=== PATIENT | female | born 1970 | race Caucasian/White ===

== ENCOUNTER 2019-06-27 23:55 | Inpatient (IN) | payer SELFPAY ==
[~2019-06-27] VITALS: Ht 160 cm; Wt 58.1 kg
--- NOTE | 2019-06-28 01:02 | PHYS DOC ---
Past Medical History Past Medical History: Alcoholism, Diabetes-Type I, Hypertension, Hepatitis, Other Additional Past Medical Histor: NEUROPATHY, Past Surgical History: No Surgical History Smoking: Cigarettes Alcohol Use: Heavy Drug Use: Methamphetamine Adult General Chief Complaint Chief Complaint: SHOUDLER HPI HPI Patient is a 48 year old right-handed female with history of alcohol use who presents with a feeling of left shoulder pain. Patient complaining of gradual o nset of left shoulder and left side of neck pain for the last 10 days that gradually getting worse since yesterday was worse and was not able to move his arm. Patient denies fever and chills, injury, history of the same problem, focal neuro deficit, nausea and vomiting. Patient rated her pain 10 over 10. Patient states she had 1 pint of vodka today. Review of Systems Review of Systems Constitutional: Denies fever or chills [] Eyes: Denies change in visual acuity, redness, or eye pain [] HENT: Denies nasal congestion or sore throat [] Respiratory: Denies cough or shortness of breath [] Cardiovascular: No additional information not addressed in HPI [] GI: Denies abdominal pain, nausea, vomiting, bloody stools or diarrhea [] : Denies dysuria or hematuria [] Musculoskeletal: Denies back pain, reports joint pain [] Integument: Denies rash or skin lesions [] Neurologic: Denies headache, focal weakness or sensory changes [] Endocrine: Denies polyuria or polydipsia [] All other systems were reviewed and found to be within normal limits, except as documented in this note. Current Medications Current Medications Current Medications Medications (Trade) Dose Ordered Sig/[facility] Start Time Stop Time Status Last Admin Dose Admin Cefazolin Sodium/ Dextrose 50 ml @ 100 mls/hr 1X ONCE 06/28/19 02:30 06/28/19 02:59 DC 06/28/19 02:53 100 MLS/HR Fentanyl Citrate (Fentanyl 2ml Vial) 50 mcg 1X ONCE 06/28/19 02:30 06/28/19 02:31 DC 06/28/19 02:39 50 MCG Sodium Chloride 1,000 ml @ 1,000 mls/hr 1X ONCE 06/28/19 02:30 06/28/19 03:29 DC 06/28/19 05:44 1,000 MLS/HR Vancomycin HCl 250 ml @ 250 mls/hr 1X ONCE 06/28/19 02:30 06/28/19 03:29 DC 06/28/19 02:54 250 MLS/HR Allergies Allergies Allergies Coded Allergies Type Severity Reaction Last Updated Verified No Known Drug Allergies 10/09/13 No Physical Exam Physical Exam Constitutional: Well nourished, mild distress, non-toxic appearance, smell of alcohol on breath. [] HENT: Normocephalic, atraumatic. Eyes: PERRLA, EOMI, conjunctiva normal, no discharge. [] Neck: Normal range of motion, no tenderness, supple, no stridor. [] Cardiovascular:Heart rate regular rhythm, no murmur [] Lungs & Thorax: Bilateral breath sounds clear to auscultation [] Skin: Warm, dry, erythema of posterior of neck and left shoulder Back: No tenderness, no CVA tenderness. [] Extremities: Left shoulder with mild edema, erythema and warmness and tenderness with limited range of motion Neurologic: Alert and oriented X 3, no focal deficits noted. [] Psychologic: Affect anxious, mood normal. [] Current Patient Data Vital Signs Vital Signs Date Time Temp Pulse Resp B/P (MAP) Pulse Ox O2 Delivery O2 Flow Rate FiO2 06/28/19 03:30 110 22 147/82 (103) 93 Room Air 06/28/19 00:18 97.7 97.7 Lab Values Laboratory Tests Test 06/28/19 01:10 06/28/19 02:30 White Blood Count 12.1 x10^3/uL (4.0-11.0) H Red Blood Count 3.89 x10^6/uL (3.50-5.40) Hemoglobin 11.5 g/dL (12.0-15.5) L Hematocrit 34.8 % (36.0-47.0) L Mean Corpuscular Volume 90 fL (79-100) Mean Corpuscular Hemoglobin 30 pg (25-35) Mean Corpuscular Hemoglobin Concent 33 g/dL (31-37) Red Cell Distribution Width 14.4 % (11.5-14.5) Platelet Count 333 x10^3/uL (140-400) Neutrophils (%) (Auto) 66 % (31-73) Lymphocytes (%) (Auto) 21 % (24-48) L Monocytes (%) (Auto) 11 % (0-9) H Eosinophils (%) (Auto) 1 % (0-3) Basophils (%) (Auto) 1 % (0-3) Neutrophils # (Auto) 8.1 x10^3/uL (1.8-7.7) H Lymphocytes # (Auto) 2.5 x10^3/uL (1.0-4.8) Monocytes # (Auto) 1.3 x10^3/uL (0.0-1.1) H Eosinophils # (Auto) 0.1 x10^3/uL (0.0-0.7) Basophils # (Auto) 0.1 x10^3/uL (0.0-0.2) Lactic Acid Level 2.4 mmol/L (0.4-2.0) H Urine Collection Type Unknown Urine Color Yellow Urine Clarity Cloudy Urine pH 5.5 Urine Specific [place] 1.025 Urine Protein 30 mg/dL (NEG-TRACE) Urine Glucose (UA) >=1000 mg/dL (NEG) Urine Ketones (Stick) 40 mg/dL (NEG) Urine Blood Trace (NEG) Urine Nitrite Negative (NEG) Urine Bilirubin Negative (NEG) Urine Urobilinogen Dipstick 1.0 mg/dL (0.2 mg/dL) Urine Leukocyte Esterase Moderate (NEG) Urine RBC 6-10 /HPF (0-2) Urine WBC >40 /HPF (0-4) Urine Squamous Epithelial Cells Mod /LPF Urine Bacteria Many /HPF (0-FEW) Urine Mucus Mod /LPF Urine Opiates Screen Neg (NEG) Urine Methadone Screen Neg (NEG) Urine Barbiturates Neg (NEG) Urine Phencyclidine Screen Neg (NEG) Urine Amphetamine/Methamphetamine Pos (NEG) Urine Benzodiazepines Screen Neg (NEG) Urine Cocaine Screen Neg (NEG) Urine Cannabinoids Screen Neg (NEG) Urine Ethyl Alcohol Pos (NEG) Laboratory Tests 06/28/19 01:10 EKG EKG [] Radiology/Procedures Radiology/Procedures [][facility] [address] [place], [place] [id number] IMAGING REPORT Signed PATIENT: YOSSI PANG ACCOUNT: [id number] : 1970 LOCATION: ER AGE: 48 SEX: F EXAM STATUS: REG ER ORD. PHYSICIAN: JERI ONOFRE MD REASON: pain without injury PROCEDURE: SHOULDER 2+V LEFT Indication:Pain without injury. TECHNIQUE: 3 views of the left shoulder COMPARISON:None FINDINGS: No acute fractures or effusion. No significant acromioclavicular or glenohumeral joint osteoarthritis. Visualized left lung is clear. IMPRESSION: As above. Electronically signed by: Keyon Hunt DO (06/28/2019 1:14 AM) [facility] DICTATED and SIGNED BY: KEYON HUNT DO DATE: 06/28/19 0114 Course & Med Decision Making Course & Med Decision Making Pertinent Labs and Imaging studies reviewed. (See chart for details) Patient requiring admission for further evaluation and treatment. Discussed with Dr. Viveros who is in agreement with admission. Discussed findings and plan with patient and family, who acknowledge understanding and agreement. Dragon Disclaimer Dragon Disclaimer This electronic medical record was generated, in whole or in part, using a voice recognition dictation system. Departure Departure Impression: Primary Impression: Sepsis Additional Impressions: Cellulitis of left shoulder Hypokalemia Uncontrolled diabetes mellitus Methamphetamine abuse Alcohol abuse Anemia Disposition: 09 ADMITTED INPATIENT (at 0212) Admitting Physician: [facility] (Dr. Viveros accepted admission) Condition: IMPROVED Referrals: NO PCP (PCP) Date and Time of Reassessment Date: Jun 28, 2019 Time: 02:28 Fluid Challenge Is the fluid challenge complet: Yes IBW Target Volume Used: Yes BMI > 30: No Vital Signs Vital Signs: Vital Signs Date Time Temp Pulse Resp B/P (MAP) Pulse Ox O2 Delivery O2 Flow Rate FiO2 06/28/19 03:30 110 22 147/82 (103) 93 Room Air 06/28/19 00:18 97.7 97.7 Temperature Source: Oral Respirations Respiratory Pattern: Normal Cardiovascular Pulse Rhythm: Regular Heart: Nml rate, reg. rhythm Lung Sounds Breath Sounds: Clear Capillary Refil Capillary Refill: Rt Hand < 3 seconds Peripheral Pulse Pulse Location: Radial Pulse Strength: Normal (2+) Pulse Assessment Method: NIBP Problem Qualifiers Primary Impression: Sepsis Sepsis type: sepsis due to unspecified organism Sepsis acute organ dysfunction status: unspecified Qualified Codes: A41.9 - Sepsis, unspecified organism Additional Impressions: Uncontrolled diabetes mellitus Diabetes mellitus type: other specified (including MAR) Glycemic state: with hyperglycemia Qualified Codes: E13.65 - Other specified diabetes mellitus with hyperglycemia Anemia Anemia type: unspecified type Qualified Codes: D64.9 - Anemia, unspecified JERI ONOFRE MD Jun 28, 2019 01:02
--- NOTE | 2019-06-28 01:17 | RAD ---
Indication:Pain without injury. TECHNIQUE: 3 views of the left shoulder COMPARISON:None FINDINGS: No acute fractures or effusion. No significant acromioclavicular or glenohumeral joint osteoarthritis. Visualized left lung is clear. IMPRESSION: As above. Electronically signed by: Keyon Hunt DO (06/28/2019 1:14 AM) [facility]
[2019-06-28 01:20] LABS: BASO # 0.1 x10^3/uL (0.0-0.2); BASO % 1 % (0-3); EOS # 0.1 x10^3/uL (0.0-0.7); EOS % 1 % (0-3); HEMATOCRIT 34.8 % (36.0-47.0); HEMOGLOBIN 11.5 g/dL (12.0-15.5); LYMPH # 2.5 x10^3/uL (1.0-4.8); LYMPH % 21 % (24-48); MEAN CORPUSCULAR HEMOGLOBIN 30 pg (25-35); MEAN CORPUSCULAR HGB CONC 33 g/dL (31-37); MEAN CORPUSCULAR VOLUME 90 fL (79-100); MONO # 1.3 x10^3/uL (0.0-1.1); MONO % 11 % (0-9); NEUT # 8.1 x10^3/uL (1.8-7.7); NEUT % 66 % (31-73); PLATELET COUNT 333 x10^3/uL (140-400); RED BLOOD COUNT 3.89 x10^6/uL (3.50-5.40); RED CELL DISTRIBUTION WIDTH 14.4 % (11.5-14.5); WHITE BLOOD COUNT 12.1 x10^3/uL (4.0-11.0)
[2019-06-28] MEDS ORDERED: VANCOMYCIN 1GM IVPB FOR OMNI 250 ML IV ONE (02:30)
[2019-06-28] MEDS ORDERED: IV NORMAL SALINE 1000ML BAG 1,000 ML IV ONE ×2 (02:30)
[2019-06-28] MEDS ORDERED: fentaNYL PF VIAL 100 MCG/2 ML VIAL IVP ONE (02:30)
[2019-06-28 02:38] LABS: BILIRUBIN,URINE NEGATIVE (NEG); CLARITY,URINE CLOUDY; COLOR,URINE YELLOW; NITRITE,URINE NEGATIVE (NEG); PH,URINE 5.5; PROTEIN,URINE 30 mg/dL (NEG-TRACE)
[2019-06-28 02:44] LABS: BARBITURATES NEG (NEG); BENZODIAZEPINES NEG (NEG); CANNABINOIDS NEG (NEG); COCAINE NEG (NEG); METHADONE NEG (NEG); OPIATES NEG (NEG); PHENCYCLIDINE NEG (NEG)
[2019-06-28 02:56] LABS: AMPHETAMINE/METHAMPHETAMINE POS (NEG)
[2019-06-28 03:05] LABS: BACTERIA,URINE MANY /HPF (0-FEW); SQUAMOUS EPITHELIAL CELL,UR MOD /LPF; WBC,URINE >40 /HPF (0-4)
[2019-06-28] MEDS ORDERED: IBUPROFEN 200 MG TABLET. PO ONE (04:15)
[2019-06-28 05:10] LABS: CALCIUM 8.8 mg/dL (8.5-10.1); CREATININE 0.7 mg/dL (0.6-1.0); GFR 89.3; POTASSIUM 3.1 mmol/L (3.5-5.1)
[2019-06-28 05:25] LABS: ALBUMIN/GLOBULIN RATIO 0.5 (1.0-1.7); TOTAL BILIRUBIN 0.2 mg/dL (0.2-1.0); TOTAL PROTEIN 8.7 g/dL (6.4-8.2)
[2019-06-28] MEDS ORDERED: POTASSIUM CHLORIDE 20 MEQ TABLET.ER. PO ONE (06:30)
[2019-06-28] MEDS ORDERED: DEXTROSE 50% 25 GM / 50ML DISP.SYRIN. IV PRN ×2 (06:30→10:30)
[2019-06-28 08:20] VITALS: BP 137/79
--- NOTE | 2019-06-28 08:30 | NUR ---
Pt. got to unit around 0815. Pt was made comfortable and oriented to room and unit policies. Vital signs and head to toe completed and charted. Pt. stated she has not taken home medications for the past 6months. Pt. stated that she cannot remember the name of the clinic/pharmacy she has been using in [place], [place]. Pt. stated that this nurse can call her brother and see if he can bring in her medications from his house tomorrow. Will continue to monitor.
[2019-06-28] MEDS: IV NORMAL SALINE 1000ML BAG 1,000 ML IV SCH ×3 (10:23→18:42)
--- NOTE | 2019-06-28 10:25 | PDOC1 ---
History and Physical Date of Admission Date of Admission DATE: 06/28/19 TIME: 10:22 Identification/Chief Complaint Chief Complaint Left shoulder pain Source Source: Patient History of Present Illness History of Present Illness Ms Reynoso is a 48yo F w/ PMHx heavy ETOH abuse, Diabetes, Hypertension, Hepatitis, neuropathy, smoker, amphetamine use who p/w left shoulder pain. Patient complaining of gradual onset of left shoulder and left side of neck pain for the last 10 days that gradually getting worse since yesterday then became worse and was not able to move her arm. Pain in passive and active ROM causes exquisite pain. Patient denies fever and chills, injury, history of the same problem, focal neuro deficit, nausea and vomiting. Patient rated her pain 10 over 10. Patient states she had 1 pint of vodka throughout the day on 06/27/19 and has had ETOH withdrawal seizures previously. Started empirically on vancomycin, ancef per ED and admitted for pain control and further workup She is refusing to move for nursing staff. Past Medical History Cardiovascular: HTN Pulmonary: No pertinent hx GI: No pertinent hx Heme/Onc: No pertinent hx Hepatobiliary: No pertinent hx Psych: Addictions Rheumatologic: No pertinent hx Infectious disease: No pertinent hx ENT: No pertinent hx Renal/: No pertinent hx Endocrine: Diabetes Dermatology: No pertinent hx Past Surgical History Past Surgical History: No pertinent history Family History Family History: Diabetes, Hypertension Social History Smoke: 1 pack per day ALCOHOL: heavy Drugs: Crystal meth Current Problem List Problem List Problems Medical Problems: (1) Alcohol abuse Status: Acute (2) Anemia Status: Acute (3) Cellulitis of left shoulder Status: Acute (4) Hypokalemia Status: Acute (5) Methamphetamine abuse Status: Acute (6) Sepsis Status: Acute (7) Uncontrolled diabetes mellitus Status: Acute Current Medications Current Medications Current Medications Sodium Chloride 1,000 ml @ 1,000 mls/hr 1X ONCE IV Last administered on 06/28/19at 03:42; Start 06/28/19 at 02:30; Stop 06/28/19 at 03:29; Status DC Sodium Chloride 1,000 ml @ 1,000 mls/hr 1X ONCE IV Last administered on 06/28/19at 05:44; Start 06/28/19 at 02:30; Stop 06/28/19 at 03:29; Status DC Cefazolin Sodium/ Dextrose 50 ml @ 100 mls/hr 1X ONCE IV Last administered on 06/28/19at 02:53; Start 06/28/19 at 02:30; Stop 06/28/19 at 02:59; Status DC Vancomycin HCl 250 ml @ 250 mls/hr 1X ONCE IV Last administered on 06/28/19at 02:54; Start 06/28/19 at 02:30; Stop 06/28/19 at 03:29; Status DC Fentanyl Citrate (Fentanyl 2ml Vial) 50 mcg 1X ONCE IVP Last administered on 06/28/19at 02:39; Start 06/28/19 at 02:30; Stop 06/28/19 at 02:31; Status DC Ibuprofen (Motrin) 600 mg 1X ONCE PO Last administered on 06/28/19at 04:34; Start 06/28/19 at 04:15; Stop 06/28/19 at 04:18; Status DC Potassium Chloride (Klor-Con) 40 meq 1X ONCE PO ; Start 06/28/19 at 06:30; Stop 06/28/19 at 06:33; Status DC Sodium Chloride 1,000 ml @ 150 mls/hr Q6H40M IV ; Start 06/28/19 at 06:30; Stop 06/29/19 at 06:29 Dextrose (Dextrose 50%-Water Syringe) 12.5 gm PRN Q15MIN PRN IV SEE COMMENTS; Start 06/28/19 at 06:30 Active Scripts Active Reported No Known Medications Prior To Admisstion (Info) Each 1 Each Allergies Allergies: Coded Allergies: No Known Drug Allergies (Unverified , 10/09/13) ROS General: YES: Fatigue, Malaise, Appetite; No: Chills, Night Sweats, Other PSYCHOLOGICAL ROS: YES: Anxiety, Disorientation; No: Behavioral Disorder, Concentration difficultie, Decreased libido, Depression, Hallucinations, Hostility, Irritablity, Memory difficulties, Mood Swings, Obsessive thoughts, Physical abuse, Sexual abuse, Sleep disturbances, Suicidal ideation, Other Eyes: No Blurry vision, No Decreased vision, No Double vision, No Dry eyes, No Excessive tearing, No Eye Pain, No Itchy Eyes, No Loss of vision, No Photophobia, No Scotomata, No Uses contacts, No Uses glasses, No Other HEENT: No: Heacaches, Visual Changes, Hearing change, Nasal congestion, Nasal discharge, Oral lesions, Sinus pain, Sore Throat, Epistaxis, Sneezing, Snoring, Tinnitus, Vertigo, Vocal changes, Other ALLERGY AND IMMUNOLOGY: No: Hives, Insect Bite Sensitivity, Itchy/Watery Eyes, Nasal Congestion, Post Nasal Drip, Seasonal Allergies, Other Hematological and Lymphatic: No: Bleeding Problems, Blood Clots, Blood Transfusions, Brusing, Night Sweats, Pallor, Swollen Lymph Nodes, Other ENDOCRINE: No: Breast Changes, Galactorrhea, Hair Pattern Changes, Hot Flashes, Malaise/lethargy, Mood Swings, Palpitations, Polydipsia/polyuria, Skin Changes, Temperature Intolerance, Unexpected Weight Changes, Other Breast: No New/Changing Breast Lumps, No Nipple changes, No Nipple discharge, No Other Respiratory: No: Cough, Hemoptysis, Orthopnea, Pleuritic Pain, Shortness of breath, SOB with excertion, Sputum Changes, Stridor, Tachypnea, Wheezing, Other Cardiovascular: No Chest Pain, No Palpitations, No Orthopnea, No Paroxysmal Noc. Dyspnea, No Edema, No Lt Headedness, No Other Gastrointestinal: Yes Nausea, Yes Vomiting, Yes Diarrhea; No Abdominal Pain, No Constipation, No Melena, No Hematochezia, No Other Genitourinary: No Dysuria, No Frequency, No Incontinence, No Hematuria, No Retention, No Discharge, No Urgency, No Pain, No Flank Pain, No Other, No , No , No , No , No , No , No Musculoskeletal: Yes Gait Disturbance, Yes Joint Pain, Yes Joint Swelling, Yes Muscular Weakness; No Joint Stiffness, No Muscle Pain, No Pain In:, No Swelling In:, No Other Neurological: Yes Dizziness, Yes Gait Disturbance; No Behavorial Changes, No Bowel/Bladder ControlChng, No Confusion, No Headaches, No Impaired Coord/balance, No Memory Loss, No Numbness/Tingling, No Seizures, No Speech Problems, No Tremors, No Visual Changes, No Weakness, No Other Skin: No Dry Skin, No Eczema, No Hair Changes, No Lumps, No Mole Changes, No Mottling, No Nail Changes, No Pruritus, No Rash, No Skin Lesion Changes, No Other, No Acne Physical Exam General: Alert, Cooperative, mild distress HEENT: Atraumatic, PERRLA, EOMI, Mucous membr. moist/pink Lungs: Clear to auscultation, Normal air movement Heart: S1S2, RRR, no thrills, no rubs, no gallops, no murmurs Abdomen: Normal bowel sounds, Soft, No hepatosplenomegaly, No masses, Other (RUQ tender) Rectal Exam: not examined Extremities: No clubbing, No cyanosis, Normal pulses, Other (Left shoulder tender, swollen, limited ROM, passive with extreme pain) Skin: No breakdown, No significant lesion, Other (Left shoulder red) Neuro: Normal gait, Normal speech, Normal tone, Sensation intact, Cranial nerves 3-12 NL, Reflexes 2+ Psych/Mental Status: Mental status NL, Mood NL Vitals Vitals Vital Signs Date Time Temp Pulse Resp B/P (MAP) Pulse Ox O2 Delivery O2 Flow Rate FiO2 06/28/19 08:20 Room Air 06/28/19 08:20 98.7 114 20 137/79 (98) 92 98.7 Labs Labs Laboratory Tests Test 06/28/19 01:10 06/28/19 02:30 06/28/19 04:10 06/28/19 05:35 White Blood Count 12.1 x10^3/uL (4.0-11.0) Red Blood Count 3.89 x10^6/uL (3.50-5.40) Hemoglobin 11.5 g/dL (12.0-15.5) Hematocrit 34.8 % (36.0-47.0) Mean Corpuscular Volume 90 fL (79-100) Mean Corpuscular Hemoglobin 30 pg (25-35) Mean Corpuscular Hemoglobin Concent 33 g/dL (31-37) Red Cell Distribution Width 14.4 % (11.5-14.5) Platelet Count 333 x10^3/uL (140-400) Neutrophils (%) (Auto) 66 % (31-73) Lymphocytes (%) (Auto) 21 % (24-48) Monocytes (%) (Auto) 11 % (0-9) Eosinophils (%) (Auto) 1 % (0-3) Basophils (%) (Auto) 1 % (0-3) Neutrophils # (Auto) 8.1 x10^3/uL (1.8-7.7) Lymphocytes # (Auto) 2.5 x10^3/uL (1.0-4.8) Monocytes # (Auto) 1.3 x10^3/uL (0.0-1.1) Eosinophils # (Auto) 0.1 x10^3/uL (0.0-0.7) Basophils # (Auto) 0.1 x10^3/uL (0.0-0.2) Lactic Acid Level 2.4 mmol/L (0.4-2.0) 2.6 mmol/L (0.4-2.0) Urine Collection Type Unknown Urine Color Yellow Urine Clarity Cloudy Urine pH 5.5 Urine Specific [place] 1.025 Urine Protein 30 mg/dL (NEG-TRACE) Urine Glucose (UA) >=1000 mg/dL (NEG) Urine Ketones (Stick) 40 mg/dL (NEG) Urine Blood Trace (NEG) Urine Nitrite Negative (NEG) Urine Bilirubin Negative (NEG) Urine Urobilinogen Dipstick 1.0 mg/dL (0.2 mg/dL) Urine Leukocyte Esterase Moderate (NEG) Urine RBC 6-10 /HPF (0-2) Urine WBC >40 /HPF (0-4) Urine Squamous Epithelial Cells Mod /LPF Urine Bacteria Many /HPF (0-FEW) Urine Mucus Mod /LPF Urine Opiates Screen Neg (NEG) Urine Methadone Screen Neg (NEG) Urine Barbiturates Neg (NEG) Urine Phencyclidine Screen Neg (NEG) Urine Amphetamine/Methamphetamine Pos (NEG) Urine Benzodiazepines Screen Neg (NEG) Urine Cocaine Screen Neg (NEG) Urine Cannabinoids Screen Neg (NEG) Urine Ethyl Alcohol Pos (NEG) Sodium Level 135 mmol/L (136-145) Potassium Level 3.1 mmol/L (3.5-5.1) Chloride Level 95 mmol/L (98-107) Carbon Dioxide Level 26 mmol/L (21-32) Anion Gap 14 (6-14) Blood Urea Nitrogen 8 mg/dL (7-20) Creatinine 0.7 mg/dL (0.6-1.0) Estimated GFR (Cockcroft-Gault) 89.3 BUN/Creatinine Ratio 11 (6-20) Glucose Level 339 mg/dL (70-99) Calcium Level 8.8 mg/dL (8.5-10.1) Total Bilirubin 0.2 mg/dL (0.2-1.0) Aspartate Amino Transf (AST/SGOT) 14 U/L (15-37) Alanine Aminotransferase (ALT/SGPT) 16 U/L (14-59) Alkaline Phosphatase 101 U/L (46-116) Total Protein 8.7 g/dL (6.4-8.2) Albumin 3.0 g/dL (3.4-5.0) Albumin/Globulin Ratio 0.5 (1.0-1.7) Ethyl Alcohol Level 121 mg/dL (0-10) Laboratory Tests Test 06/28/19 01:10 06/28/19 02:30 06/28/19 04:10 06/28/19 05:35 White Blood Count 12.1 x10^3/uL (4.0-11.0) Red Blood Count 3.89 x10^6/uL (3.50-5.40) Hemoglobin 11.5 g/dL (12.0-15.5) Hematocrit 34.8 % (36.0-47.0) Mean Corpuscular Volume 90 fL (79-100) Mean Corpuscular Hemoglobin 30 pg (25-35) Mean Corpuscular Hemoglobin Concent 33 g/dL (31-37) Red Cell Distribution Width 14.4 % (11.5-14.5) Platelet Count 333 x10^3/uL (140-400) Neutrophils (%) (Auto) 66 % (31-73) Lymphocytes (%) (Auto) 21 % (24-48) Monocytes (%) (Auto) 11 % (0-9) Eosinophils (%) (Auto) 1 % (0-3) Basophils (%) (Auto) 1 % (0-3) Neutrophils # (Auto) 8.1 x10^3/uL (1.8-7.7) Lymphocytes # (Auto) 2.5 x10^3/uL (1.0-4.8) Monocytes # (Auto) 1.3 x10^3/uL (0.0-1.1) Eosinophils # (Auto) 0.1 x10^3/uL (0.0-0.7) Basophils # (Auto) 0.1 x10^3/uL (0.0-0.2) Lactic Acid Level 2.4 mmol/L (0.4-2.0) 2.6 mmol/L (0.4-2.0) Urine Collection Type Unknown Urine Color Yellow Urine Clarity Cloudy Urine pH 5.5 Urine Specific [place] 1.025 Urine Protein 30 mg/dL (NEG-TRACE) Urine Glucose (UA) >=1000 mg/dL (NEG) Urine Ketones (Stick) 40 mg/dL (NEG) Urine Blood Trace (NEG) Urine Nitrite Negative (NEG) Urine Bilirubin Negative (NEG) Urine Urobilinogen Dipstick 1.0 mg/dL (0.2 mg/dL) Urine Leukocyte Esterase Moderate (NEG) Urine RBC 6-10 /HPF (0-2) Urine WBC >40 /HPF (0-4) Urine Squamous Epithelial Cells Mod /LPF Urine Bacteria Many /HPF (0-FEW) Urine Mucus Mod /LPF Urine Opiates Screen Neg (NEG) Urine Methadone Screen Neg (NEG) Urine Barbiturates Neg (NEG) Urine Phencyclidine Screen Neg (NEG) Urine Amphetamine/Methamphetamine Pos (NEG) Urine Benzodiazepines Screen Neg (NEG) Urine Cocaine Screen Neg (NEG) Urine Cannabinoids Screen Neg (NEG) Urine Ethyl Alcohol Pos (NEG) Sodium Level 135 mmol/L (136-145) Potassium Level 3.1 mmol/L (3.5-5.1) Chloride Level 95 mmol/L (98-107) Carbon Dioxide Level 26 mmol/L (21-32) Anion Gap 14 (6-14) Blood Urea Nitrogen 8 mg/dL (7-20) Creatinine 0.7 mg/dL (0.6-1.0) Estimated GFR (Cockcroft-Gault) 89.3 BUN/Creatinine Ratio 11 (6-20) Glucose Level 339 mg/dL (70-99) Calcium Level 8.8 mg/dL (8.5-10.1) Total Bilirubin 0.2 mg/dL (0.2-1.0) Aspartate Amino Transf (AST/SGOT) 14 U/L (15-37) Alanine Aminotransferase (ALT/SGPT) 16 U/L (14-59) Alkaline Phosphatase 101 U/L (46-116) Total Protein 8.7 g/dL (6.4-8.2) Albumin 3.0 g/dL (3.4-5.0) Albumin/Globulin Ratio 0.5 (1.0-1.7) Ethyl Alcohol Level 121 mg/dL (0-10) Images Images Left shoulder XR - No acute fractures or effusion. No significant ac romioclavicular or glenohumeral joint osteoarthritis. Visualized left lung is clear. VTE Prophylaxis Ordered VTE Prophylaxis Devices: No VTE Pharmacological Prophylaxi: Yes Assessment/Plan Assessment/Plan A/P: Left shoulder cellulitis - with limited ROM, will cont vancomycin, add rocephin. CT shoulder, may need ortho evaluation depending on results. May also need ID consultation. Sepsis - 2/2 cellulitis with leukocytosis and tachycardia Lactic acidosis - will cont IVF Alcoholism - with acute alcohol intoxication, delerium, history of withdrawal seizures. CIWA protocol, banana bag. Hypokalemia - K 3.1, replace, f/u mag level Diabetes - basal bolus plus regimen in house Hypertension - will monitor and treat prn Hepatitis - alcoholic by history Neuropathy - 2/2 ETOH and DM Smoker - nicotine patch offered Amphetamine use - counseled on cessation, smokes, does not inject FEN - General diet PPX - lovenox FULL CODE Dispo - inpatient for concern for left upper extremity cellulitis with possible septic arthritis HOLLI CHAVEZ MD Jun 28, 2019 10:25
[2019-06-28] MEDS ORDERED: LORazepam 1 MG TABLET PO PRN (11:00)
[2019-06-28] MEDS ORDERED: HALOPERIDOL LACTATE 5 MG/ML VIAL. IVP PRN (11:00)
[2019-06-28] MEDS ORDERED: cloNIDine HCL 0.1 MG TABLET PO PRN (11:00)
[2019-06-28] MEDS ORDERED: diphenhydrAMINE 50 MG/ML VIAL IVP PRN (11:00)
[2019-06-28] MEDS: cefTRIAXone IV Push 1 GM VIAL. IVP SCH (11:39)
[2019-06-28] MEDS: ENOXAPARIN 40 MG/0.4 ML SYRINGE. SQ SCH (11:40)
[2019-06-28] MEDS: KETOROLAC 30 MG/ML VIAL. IVP PRN ×2 (11:41→18:40)
[2019-06-28] MEDS: MULTIVIT INFUSN,ADULT 4,VIT K 10 ML, THIAMINE INJ 100 MG, FOLIC ACID INJ 1 MG in IV NOR... IV SCH (11:42)
[2019-06-28] MEDS: INSULIN LISPRO 300 UNITS/3 ML VIAL. SQ SCH ×3 (11:52→21:38)
[2019-06-28 12:16] VITALS: BP 147/83
[2019-06-28] MEDS: HYDROcodone/APAP 5/325MG 1 TAB TABLET PO PRN ×2 (13:07→21:25)
[2019-06-28 14:09] VITALS: BP 147/83
[2019-06-28] MEDS ORDERED: IOHEXOL 300 MG/ML 100ML VIAL. IV ONE (14:45)
[2019-06-28] MEDS ORDERED: CONTRAST GIVEN. MC PRN (14:45)
[2019-06-28] MEDS ORDERED: FLU VAX QS 2019-20 (36MOS+)/PF 0.5 ML SYRINGE. VAX IM ONE (15:00)
[2019-06-28] MEDS: VANCOMYCIN 1 GM in IV NORMAL SALINE 250ML 250 ML IV SCH (15:19)
--- NOTE | 2019-06-28 15:41 | NUR ---
This nurse non-administered IV fluids r/t Banana Bag still running. Will continue to monitor
[2019-06-28] MEDS: VANCOMYCIN PER PHARMACY MC PRN (16:08)
--- NOTE | 2019-06-28 16:09 | NUR ---
Pharmacy Vancomycin Dosing Note S:Consulted to monitor and dose vancomycin started 06/28/19. O:YOSSI PANG is a 48 year old F with Cellulitis POSS SEPTIC ARTHRITIS . Height: 5 feet, 3 inches Weight: 62.721049 kg [place] Body Weight: 52.40 Adjusted Body Weight: 56.24 Dosing Weight: Actual Other Antibiotics: CEFTRIAXONE LABS: Last BUN: 8 Last Creatinine: 0.7 Creatinine Clearance: 87 mL/min Last WBC: 12.1 Last Procalcitonin: Tmax (past 24 hours): 98.7 Microbiology: I/O: Drug Levels: Last level: on at Last dose given 06/28/19 at 1519 Vancomycin Dosing: Loading Dose: x1 Dosing Weight: Actual Target Trough: 15-20 A: Based on: Body weight and renal function P: 1. start Vancomycin 1000 mg IV q12h 2. Follow up Trough level on 06/29/19 at 1430 3. Pharmacy will continue to monitor, follow and adjust therapy as needed. VERENICE KATHLEEN [facility] [place], 06/28/19 1464
--- NOTE | 2019-06-28 17:31 | NUR ---
This nurse contacted pt. brotherJoão. Pt. brother stated he would bring in her home medications tomorrow.
[2019-06-28 19:00] VITALS: BP 138/87
[2019-06-28] MEDS ORDERED: chlordiazePOXIDE HCL 25 MG CAPSULE PO SCH (19:30)
[2019-06-28 20:00] LABS: ALBUMIN 2.1 g/dL (3.4-5.0); ALK PHOS 68 U/L (46-116); ALT (SGPT) 14 U/L (14-59); AST (SGOT) 15 U/L (15-37); DIRECT BILIRUBIN < 0.1 mg/dL (0.0-0.2); TOTAL BILIRUBIN 0.1 mg/dL (0.2-1.0); TOTAL PROTEIN 5.7 g/dL (6.4-8.2)
[2019-06-28] MEDS: LACTOBACILLUS RHAMNOSUS GG 1 CAPSULE. PO SCH (21:24)
[2019-06-28] MEDS: LORazepam 1 MG TABLET PO SCH (21:26)
[2019-06-28] MEDS: MORPHINE SULFATE 2 MG/ML VIAL. IV PRN (21:26)
[2019-06-28] MEDS: INSULIN GLARGINE SYRINGE. SQ SCH (21:37)
--- NOTE | 2019-06-28 22:04 | RAD ---
Study: CT left upper extremity with contrast INDICATION: Concern for left shoulder septic arthritis. COMPARISON: No prior cross-sectional imaging is available for review. TECHNIQUE: Axial CT imaging centered about the left shoulder performed after the intravenous demonstration of 75 cc Omnipaque 300. Coronal and sagittal reformats were obtained. One or more of the following individualized dose reduction techniques were utilized for this examination: 1. Automated exposure control 2. Adjustment of the mA and/or kV according to patient size 3. Use of iterative reconstruction technique. FINDINGS: Subcutaneous fatty stranding centered cephalad to the left AC joint compatible with active inflammation. This inflammation extends inferiorly to minimally involve the upper aspect of the axilla, along the left clavicle, posteriorly along the upper margin of the deltoid and medially along the trapezius. This appears to be originating from the acromioclavicular joint which exhibits a mildly distended capsule which is faintly enhancing. Beam hardening from the clavicle and acromion limits evaluation but there is a presumed small amount of fluid within the AC joint contributing to this distention. Very mild articular surface irregularity at the AC joint involving the clavicle more so than the acromion but without overt erosive change. No destructive bony changes seen at the glenohumeral joint and there is no large effusion with only a very small amount of fluid seen within the axillary pouch. No axillary adenopathy. The major vascular structures included in the [id number] are patent. Multinodular thyroid incidentally noted. At the inferior aspect of the left thyroid lobe either a single nodule with a septation or 2 adjacent nodules are present with foci of internal mineralization. Assuming this to represent a septated nodule, this would measured up to 2.4 cm. Calcific coronary artery disease. IMPRESSION: 1. Soft tissue changes centered around the AC joint. The AC joint itself exhibits a mildly distended capsule which is enhancing and there is presumably a small amount of fluid within the joint contributing to this capsular distention. Mild bony irregularity along the articular surfaces of the clavicle more so than acromial aspects of the joint but without overt erosion to suggest osteomyelitis. The degree of surrounding inflammatory change would be atypical for a degenerative arthrosis and the appearance is concerning for a septic AC joint. If the surrounding inflammatory changes appear cellulitic by physical exam, it may be difficult to aspirate the joint given the possibility of seeding. Otherwise, a small amount of fluid could likely be aspirated. Additionally, if further imaging is needed to confirm the presence or absence of osteomyelitis, MRI with and without contrast would be more sensitive. 2. No evidence for septic arthritis involving the glenohumeral joint and there does not appear to be fluid distention of the subacromial subdeltoid bursa. 3. Multinodular thyroid with nodularity at the inferior aspect of the left thyroid lobe either representing two adjacent nodules or a single septated nodule. As this is difficult to distinguish by CT, it is assumed that this represents a single nodule which measures up to 2.4 cm and would warrant further evaluation with nonemergent thyroid sonography. Electronically signed by: BO DURANT MD (06/28/2019 10:01 PM) [facility] [place]
[2019-06-28 23:00] VITALS: BP 135/86
[2019-06-29] MEDS: IV NORMAL SALINE 1000ML BAG 1,000 ML IV SCH (01:30)
[2019-06-29] MEDS: MORPHINE SULFATE 2 MG/ML VIAL. IV PRN ×2 (02:24→15:28)
[2019-06-29] MEDS: LORazepam 1 MG TABLET PO SCH ×2 (02:24→09:00)
[2019-06-29] MEDS: VANCOMYCIN 1 GM in IV NORMAL SALINE 250ML 250 ML IV SCH ×3 (02:26→22:39)
[2019-06-29 03:00] VITALS: BP 147/89
[2019-06-29] MEDS: HYDROcodone/APAP 5/325MG 1 TAB TABLET PO PRN ×2 (04:18→21:11)
[2019-06-29] MEDS: KETOROLAC 30 MG/ML VIAL. IVP PRN ×2 (05:49→23:09)
[2019-06-29 07:00] VITALS: BP 121/73
[2019-06-29] MEDS ORDERED: NICOTINE 21MG PATCH. TD PRN (08:45)
[2019-06-29] MEDS ORDERED: chlordiazePOXIDE HCL 25 MG CAPSULE PO PRN (08:45)
[2019-06-29] MEDS ORDERED: DEXTROSE 50% 25 GM / 50ML DISP.SYRIN. IV PRN (08:45)
[2019-06-29] MEDS ORDERED: MULTIVIT INFUSN,ADULT 4,VIT K 10 ML, THIAMINE INJ 100 MG, FOLIC ACID INJ 1 MG in IV NOR... IV SCH (09:00)
[2019-06-29] MEDS: LACTOBACILLUS RHAMNOSUS GG 1 CAPSULE. PO SCH ×2 (09:00→21:11)
[2019-06-29] MEDS: MULTIVIT INFUSN,ADULT 4,VIT K 10 ML, THIAMINE INJ 100 MG, FOLIC ACID INJ 1 MG in IV NOR... IV SCH (09:01)
[2019-06-29] MEDS: ENOXAPARIN 40 MG/0.4 ML SYRINGE. SQ SCH (09:01)
--- NOTE | 2019-06-29 09:23 | PDOC2 ---
CONSULT Date of Consult Date of Consult DATE: 06/29/19 TIME: 09:10 Reason for Consult Reason for Consult: Several day history of increasing pain in her left shoulder with no reported injury. Referring Physician Referring Physician: Dr Viveros Identification/Chief Complaint Chief Complaint left shoulder pain and swelling Source Source: Caregiver, Chart review, Patient History of Present Illness Reason for Visit: Patient with pain in left shoulder and unable to lift her arm related to pain. Past Medical History Cardiovascular: HTN Pulmonary: No pertinent hx GI: No pertinent hx Heme/Onc: No pertinent hx Hepatobiliary: No pertinent hx Psych: Addictions Rheumatologic: No pertinent hx Infectious disease: No pertinent hx ENT: No pertinent hx Renal/: No pertinent hx Endocrine: Diabetes Dermatology: No pertinent hx Past Surgical History Past Surgical History: No pertinent history Family History Family History: Diabetes, Hypertension Social History 1 pack per day ALCOHOL: heavy Drugs: Crystal meth Current Problem List Problem List Problems Medical Problems: (1) Alcohol abuse Status: Acute (2) Anemia Status: Acute (3) Cellulitis of left shoulder Status: Acute (4) Hypokalemia Status: Acute (5) Methamphetamine abuse Status: Acute (6) Sepsis Status: Acute (7) Uncontrolled diabetes mellitus Status: Acute Current Medications Current Medications Current Medications Sodium Chloride 1,000 ml @ 1,000 mls/hr 1X ONCE IV Last administered on 06/28/19at 03:42; Start 06/28/19 at 02:30; Stop 06/28/19 at 03:29; Status DC Sodium Chloride 1,000 ml @ 1,000 mls/hr 1X ONCE IV Last administered on 06/28/19at 05:44; Start 06/28/19 at 02:30; Stop 06/28/19 at 03:29; Status DC Cefazolin Sodium/ Dextrose 50 ml @ 100 mls/hr 1X ONCE IV Last administered on 06/28/19at 02:53; Start 06/28/19 at 02:30; Stop 06/28/19 at 02:59; Status DC Vancomycin HCl 250 ml @ 250 mls/hr 1X ONCE IV Last administered on 06/28/19at 02:54; Start 06/28/19 at 02:30; Stop 06/28/19 at 03:29; Status DC Fentanyl Citrate (Fentanyl 2ml Vial) 50 mcg 1X ONCE IVP Last administered on 06/28/19at 02:39; Start 06/28/19 at 02:30; Stop 06/28/19 at 02:31; Status DC Ibuprofen (Motrin) 600 mg 1X ONCE PO Last administered on 06/28/19at 04:34; Start 06/28/19 at 04:15; Stop 06/28/19 at 04:18; Status DC Potassium Chloride (Klor-Con) 40 meq 1X ONCE PO Last administered on 06/28/19at 10:22; Start 06/28/19 at 06:30; Stop 06/28/19 at 06:33; Status DC Sodium Chloride 1,000 ml @ 150 mls/hr Q6H40M IV Last administered on 06/29/19at 01:30; Start 06/28/19 at 06:30; Stop 06/29/19 at 06:29; Status DC Dextrose (Dextrose 50%-Water Syringe) 12.5 gm PRN Q15MIN PRN IV SEE COMMENTS; Start 06/28/19 at 06:30; Stop 06/29/19 at 08:47; Status DC Insulin Glargine (Lantus Syringe) 8 unit QHS SQ Last administered on 06/28/19at 21:37; Start 06/28/19 at 21:00 Insulin Human Lispro (HumaLOG) 0-7 UNITS TIDACHC SQ Last administered on 06/28/19at 21:38; Start 06/28/19 at 11:30; Stop 06/29/19 at 08:42; Status DC Dextrose (Dextrose 50%-Water Syringe) 12.5 gm PRN Q15MIN PRN IV SEE COMMENTS; Start 06/28/19 at 10:30; Status UNV Acetaminophen/ Hydrocodone Bitart (Lortab 5/325) 1 tab PRN Q6HRS PRN PO PAIN Last administered on 06/29/19at 04:18; Start 06/28/19 at 10:30 Morphine Sulfate (Morphine Sulfate) 2 mg PRN Q4HRS PRN IV MODERATE-SEVERE PAIN Last administered on 06/29/19at 02:24; Start 06/28/19 at 10:30 Enoxaparin Sodium (Lovenox 40mg Syringe) 40 mg DAILY SQ Last administered on 06/29/19at 09:01; Start 06/28/19 at 12:00 Ketorolac Tromethamine (Toradol 30mg Vial) 30 mg PRN Q6HRS PRN IVP MILD PAIN 1- 3 Last administered on 06/29/19at 05:49; Start 06/28/19 at 10:30; Stop 06/10 01/25 at 10:29 Multivitamins 10 ml/Thiamine HCl 100 mg/Folic Acid 1 mg/Sodium Chloride 1,011.2 ml @ 100 mls/ hr DAILY IV Last administered on 06/29/19at 09:01; Start 06/28/19 at 12:00; Stop 07/02/19 at 19:07 Lorazepam (Ativan) 2 mg PRN Q1HR PRN PO For CIWA 8-14; Start 06/28/19 at 11:00 Lorazepam (Ativan Inj) 1 mg PRN Q1HR PRN IV For CIWA 8-14; Start 06/28/19 at 11:00 Haloperidol Lactate (Haldol Inj) 5 mg PRN Q4HRS PRN IVP Hallucinatns,Confusn,Delirium; Start 06/28/19 at 11:00 Diphenhydramine HCl (Benadryl) 25 mg PRN Q15MIN PRN IVP EPS symptoms 2'Haldol admin; Start 06/28/19 at 11:00 Clonidine HCl (Catapres) 0.1 mg PRN Q1HR PRN PO SBP > 180 or DBP > 100, MRX3; Start 06/28/19 at 11:00 Vancomycin HCl 1 gm/Sodium Chloride 250 ml @ 250 mls/hr Q12H IV Last administered on 06/29/19at 02:26; Start 06/28/19 at 15:00 Vancomycin HCl (Vanco Per Pharmacy) 1 each PRN DAILY PRN MC SEE COMMENTS Last administered on 06/28/19at 16:08; Start 06/28/19 at 11:00 Ceftriaxone Sodium (Rocephin) 1 gm Q24H IVP Last administered on 06/28/19at 11:39; Start 06/28/19 at 12:00 Influenza Virus Vaccine Quadrival (Afluria Quad 2019-20 (3yr Up) Syringe) 0.5 ml ONCE ONCE VAX IM Last administered on 06/28/19at 15:25; Start 06/28/19 at 15:00; Stop 06/28/19 at 15:01; Status DC Iohexol (Omnipaque 300 Mg/ml) 75 ml 1X ONCE IV ; Start 06/28/19 at 14:45; Stop 06/28/19 at 14:46; Status DC Info (CONTRAST GIVEN -- Rx MONITORING) 1 each PRN DAILY PRN MC SEE COMMENTS; Start 06/28/19 at 14:45; Stop 06/30/19 at 14:44 Lactobacillus Rhamnosus (Culturelle) 1 cap BID PO Last administered on 06/29/19at 09:00; Start 06/28/19 at 21:00 Vancomycin HCl (Vancomycin Trough Level) 1 each 1X ONCE MC ; Start 06/29/19 at 14:30; Stop 06/29/19 at 14:31 Multivitamins 10 ml/Thiamine HCl 100 mg/Folic Acid 1 mg/Sodium Chloride 1,011.2 ml @ 100 mls/ hr DAILY IV ; Start 06/29/19 at 09:00; Stop 07/03/19 at 19:07; Status UNV Multivitamins (Thera M Plus) 1 tab DAILY PO ; Start 07/03/19 at 09:00 Folic Acid (Folic Acid) 1 mg DAILY PO ; Start 07/03/19 at 09:00 Thiamine Mononitrate (Vitamin B-1) 100 mg DAILY PO ; Start 07/03/19 at 09:00 Thiamine HCl 100 mg DAILY IM ; Start 07/03/19 at 09:00; Stop 07/08/19 at 08:59; Status UNV Thiamine HCl 100 mg/Dextrose 51 ml @ 100 mls/hr DAILY IV ; Start 07/03/19 at 09:00; Stop 07/07/19 at 09:31; Status UNV Lorazepam (Ativan) 2 mg Q6H PO Last administered on 06/29/19at 09:00; Start at 20:00; Stop 06/30/19 at 02:01 Chlordiazepoxide (Librium) 25 mg Q6H PO ; Start 06/28/19 at 19:30; Stop 06/30/19 at 01:31; Status UNV Chlordiazepoxide (Librium) 25 mg PRN Q6HRS PRN PO ANXIETY / AGITATION; Start 06/29/19 at 08:45 Insulin Human Lispro (HumaLOG) 0-9 UNITS TIDWMEALS SQ ; Start 06/29/19 at 12:00 Dextrose (Dextrose 50%-Water Syringe) 12.5 gm PRN Q15MIN PRN IV SEE COMMENTS; Start 06/29/19 at 08:45 Nicotine (Nicoderm Cq 21mg) 1 patch PRN DAILY PRN TD SMOKING CESSATION; Start 06/29/19 at 08:45 Active Scripts Active Reported No Known Medications Prior To Admisstion (Info) Each 1 Each MC Allergies Allergies: Coded Allergies: No Known Drug Allergies (Unverified , 10/09/13) Physical Exam General: moderate distress (Patient unable to stay awake for more than a few minutes for exam) MUSCULOSKELETAL: Abnormal exam of left (Painful to the touch over the acromio clavicular joint, with patient unable to actively lift arm to shoulder height. Passive ROM creates extensive pain around shoulder.) Vitals VITALS Vital Signs Date Time Temp Pulse Resp B/P (MAP) Pulse Ox O2 Delivery O2 Flow Rate FiO2 06/29/19 07:00 98.6 100 16 121/73 (89) 94 Room Air 98.6 Labs Labs Laboratory Tests Test 06/28/19 01:10 06/28/19 02:30 06/28/19 04:10 06/28/19 05:35 White Blood Count 12.1 x10^3/uL (4.0-11.0) Red Blood Count 3.89 x10^6/uL (3.50-5.40) Hemoglobin 11.5 g/dL (12.0-15.5) Hematocrit 34.8 % (36.0-47.0) Mean Corpuscular Volume 90 fL (79-100) Mean Corpuscular Hemoglobin 30 pg (25-35) Mean Corpuscular Hemoglobin Concent 33 g/dL (31-37) Red Cell Distribution Width 14.4 % (11.5-14.5) Platelet Count 333 x10^3/uL (140-400) Neutrophils (%) (Auto) 66 % (31-73) Lymphocytes (%) (Auto) 21 % (24-48) Monocytes (%) (Auto) 11 % (0-9) Eosinophils (%) (Auto) 1 % (0-3) Basophils (%) (Auto) 1 % (0-3) Neutrophils # (Auto) 8.1 x10^3/uL (1.8-7.7) Lymphocytes # (Auto) 2.5 x10^3/uL (1.0-4.8) Monocytes # (Auto) 1.3 x10^3/uL (0.0-1.1) Eosinophils # (Auto) 0.1 x10^3/uL (0.0-0.7) Basophils # (Auto) 0.1 x10^3/uL (0.0-0.2) Lactic Acid Level 2.4 mmol/L (0.4-2.0) 2.6 mmol/L (0.4-2.0) Urine Collection Type Unknown Urine Color Yellow Urine Clarity Cloudy Urine pH 5.5 Urine Specific [place] 1.025 Urine Protein 30 mg/dL (NEG-TRACE) Urine Glucose (UA) >=1000 mg/dL (NEG) Urine Ketones (Stick) 40 mg/dL (NEG) Urine Blood Trace (NEG) Urine Nitrite Negative (NEG) Urine Bilirubin Negative (NEG) Urine Urobilinogen Dipstick 1.0 mg/dL (0.2 mg/dL) Urine Leukocyte Esterase Moderate (NEG) Urine RBC 6-10 /HPF (0-2) Urine WBC >40 /HPF (0-4) Urine Squamous Epithelial Cells Mod /LPF Urine Bacteria Many /HPF (0-FEW) Urine Mucus Mod /LPF Urine Opiates Screen Neg (NEG) Urine Methadone Screen Neg (NEG) Urine Barbiturates Neg (NEG) Urine Phencyclidine Screen Neg (NEG) Urine Amphetamine/Methamphetamine Pos (NEG) Urine Benzodiazepines Screen Neg (NEG) Urine Cocaine Screen Neg (NEG) Urine Cannabinoids Screen Neg (NEG) Urine Ethyl Alcohol Pos (NEG) Sodium Level 135 mmol/L (136-145) Potassium Level 3.1 mmol/L (3.5-5.1) Chloride Level 95 mmol/L (98-107) Carbon Dioxide Level 26 mmol/L (21-32) Anion Gap 14 (6-14) Blood Urea Nitrogen 8 mg/dL (7-20) Creatinine 0.7 mg/dL (0.6-1.0) Estimated GFR (Cockcroft-Gault) 89.3 BUN/Creatinine Ratio 11 (6-20) Glucose Level 339 mg/dL (70-99) Calcium Level 8.8 mg/dL (8.5-10.1) Total Bilirubin 0.1 mg/dL (0.2-1.0) Direct Bilirubin < 0.1 mg/dL (0.0-0.2) Aspartate Amino Transf (AST/SGOT) 15 U/L (15-37) Alanine Aminotransferase (ALT/SGPT) 14 U/L (14-59) Alkaline Phosphatase 68 U/L (46-116) Total Protein 5.7 g/dL (6.4-8.2) Albumin 2.1 g/dL (3.4-5.0) Albumin/Globulin Ratio 0.5 (1.0-1.7) Ethyl Alcohol Level 121 mg/dL (0-10) Test 06/28/19 11:48 06/28/19 16:59 06/28/19 20:25 06/28/19 21:19 Glucose (Fingerstick) 200 mg/dL (70-99) 236 mg/dL (70-99) 279 mg/dL (70-99) Lactic Acid Level 1.9 mmol/L (0.4-2.0) Test 06/29/19 07:38 Glucose (Fingerstick) 212 mg/dL (70-99) Laboratory Tests Test 06/28/19 11:48 06/28/19 16:59 06/28/19 20:25 06/28/19 21:19 Glucose (Fingerstick) 200 mg/dL (70-99) 236 mg/dL (70-99) 279 mg/dL (70-99) Lactic Acid Level 1.9 mmol/L (0.4-2.0) Test 06/29/19 07:38 Glucose (Fingerstick) 212 mg/dL (70-99) Images Images Xrays of shoulder not impressive for bony abnormality CT indicated possible fluid collection around ac joint but not appreciated on review. Assessment/Plan Assessment/Plan Patient obtunded this morning and unable to stay awake for exam. Anterior shoulder painful on exam no open wounds noted Patient moving contralateral arm and shoulder, wrist and hand without difficulty Will allow patient to detox and reevaluate tomorrow and decide if shoulder would benefit from Irrigation in the OR DASIA WALSH APRN Jun 29, 2019 09:23
[2019-06-29 10:21] LABS: BASO # 0.1 x10^3/uL (0.0-0.2); BASO % 1 % (0-3); EOS # 0.1 x10^3/uL (0.0-0.7); EOS % 1 % (0-3); HEMATOCRIT 30.2 % (36.0-47.0); LYMPH # 1.6 x10^3/uL (1.0-4.8); LYMPH % 15 % (24-48); MEAN CORPUSCULAR HEMOGLOBIN 30 pg (25-35); MEAN CORPUSCULAR HGB CONC 33 g/dL (31-37); MEAN CORPUSCULAR VOLUME 90 fL (79-100); MONO # 0.8 x10^3/uL (0.0-1.1); MONO % 7 % (0-9); NEUT # 8.2 x10^3/uL (1.8-7.7); NEUT % 76 % (31-73); PLATELET COUNT 316 x10^3/uL (140-400); RED BLOOD COUNT 3.36 x10^6/uL (3.50-5.40); RED CELL DISTRIBUTION WIDTH 14.8 % (11.5-14.5); WHITE BLOOD COUNT 10.8 x10^3/uL (4.0-11.0)
[2019-06-29 10:51] LABS: CALCIUM 6.8 mg/dL (8.5-10.1); CREATININE 0.6 mg/dL (0.6-1.0); GFR 106.7; POTASSIUM 3.1 mmol/L (3.5-5.1)
[2019-06-29 11:00] VITALS: BP 137/86
--- NOTE | 2019-06-29 11:06 | PDOC ---
Provider Note Provider Note Pt seen and examined ID consult dictated [id number] thank you JAKY TENORIO MD Jun 29, 2019 11:06
--- NOTE | 2019-06-29 11:55 | PDOC ---
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 Soft tissue changes centered around the AC joint. appearance is concerning for a septic AC joint. ast would be more sensitive. 2. No evidence for septic arthritis involving the glenohumeral joint and there does not appear to be fluid distention of the subacromial subdeltoid bursa. 3. Multinodular thyroid with nodularity at the inferior aspect of the left thyroid lobe either representing two adjacent nodules or a single septated nodule. HAs gotten 6 doses of the ativan as part of CIWA PLAN: Dc ciwa but just do librium 25 prn - too sleepy to participate with ortho eval NPO MN in case I and D OR tmr by ortho COnt vanc per ID Hernandez patch prn check TSH re that incidental thyroid nodule, though can do as OP Vitals Vitals Vital Signs Date Time Temp Pulse Resp B/P (MAP) Pulse Ox O2 Delivery O2 Flow Rate FiO2 06/29/19 11:00 98.4 98 16 137/86 (103) 96 Room Air 98.4 Physical Exam General: moderate distress (Patient unable to stay awake for more than a few minutes for exam) Lungs: Clear Abdomen: Normal bowel sounds, Soft, No hepatosplenomegaly, No masses, Other (RUQ tender) Extremities: No clubbing, No cyanosis, Normal pulses, Other (Left shoulder tender, swollen, limited ROM, passive with extreme pain) Skin: No breakdown, No significant lesion, Other (Left shoulder red) Labs LABS Laboratory Tests Test 06/28/19 16:59 06/28/19 20:25 06/28/19 21:19 06/29/19 07:38 Glucose (Fingerstick) 236 mg/dL (70-99) 279 mg/dL (70-99) 212 mg/dL (70-99) Lactic Acid Level 1.9 mmol/L (0.4-2.0) Test 06/29/19 10:01 White Blood Count 10.8 x10^3/uL (4.0-11.0) Red Blood Count 3.36 x10^6/uL (3.50-5.40) Hemoglobin 10.0 g/dL (12.0-15.5) Hematocrit 30.2 % (36.0-47.0) Mean Corpuscular Volume 90 fL (79-100) Mean Corpuscular Hemoglobin 30 pg (25-35) Mean Corpuscular Hemoglobin Concent 33 g/dL (31-37) Red Cell Distribution Width 14.8 % (11.5-14.5) Platelet Count 316 x10^3/uL (140-400) Neutrophils (%) (Auto) 76 % (31-73) Lymphocytes (%) (Auto) 15 % (24-48) Monocytes (%) (Auto) 7 % (0-9) Eosinophils (%) (Auto) 1 % (0-3) Basophils (%) (Auto) 1 % (0-3) Neutrophils # (Auto) 8.2 x10^3/uL (1.8-7.7) Lymphocytes # (Auto) 1.6 x10^3/uL (1.0-4.8) Monocytes # (Auto) 0.8 x10^3/uL (0.0-1.1) Eosinophils # (Auto) 0.1 x10^3/uL (0.0-0.7) Basophils # (Auto) 0.1 x10^3/uL (0.0-0.2) Sodium Level 138 mmol/L (136-145) Potassium Level 3.1 mmol/L (3.5-5.1) Chloride Level 102 mmol/L (98-107) Carbon Dioxide Level 24 mmol/L (21-32) Anion Gap 12 (6-14) Blood Urea Nitrogen 6 mg/dL (7-20) Creatinine 0.6 mg/dL (0.6-1.0) Estimated GFR (Cockcroft-Gault) 106.7 Glucose Level 194 mg/dL (70-99) Calcium Level 6.8 mg/dL (8.5-10.1) Review of Systems Review of Systems asleep I did not awaken Assessment and Plan Assessmemt and Plan Problems Medical Problems: (1) Alcohol abuse Status: Acute (2) Anemia Status: Acute (3) Cellulitis of left shoulder Status: Acute (4) Hypokalemia Status: Acute (5) Methamphetamine abuse Status: Acute (6) Sepsis Status: Acute (7) Uncontrolled diabetes mellitus Status: Acute Comment Review of Relevant I have reviewed the following items chari (where applicable) has been applied. Labs Laboratory Tests Test 06/28/19 01:10 06/28/19 02:30 06/28/19 04:10 06/28/19 05:35 White Blood Count 12.1 x10^3/uL (4.0-11.0) Red Blood Count 3.89 x10^6/uL (3.50-5.40) Hemoglobin 11.5 g/dL (12.0-15.5) Hematocrit 34.8 % (36.0-47.0) Mean Corpuscular Volume 90 fL (79-100) Mean Corpuscular Hemoglobin 30 pg (25-35) Mean Corpuscular Hemoglobin Concent 33 g/dL (31-37) Red Cell Distribution Width 14.4 % (11.5-14.5) Platelet Count 333 x10^3/uL (140-400) Neutrophils (%) (Auto) 66 % (31-73) Lymphocytes (%) (Auto) 21 % (24-48) Monocytes (%) (Auto) 11 % (0-9) Eosinophils (%) (Auto) 1 % (0-3) Basophils (%) (Auto) 1 % (0-3) Neutrophils # (Auto) 8.1 x10^3/uL (1.8-7.7) Lymphocytes # (Auto) 2.5 x10^3/uL (1.0-4.8) Monocytes # (Auto) 1.3 x10^3/uL (0.0-1.1) Eosinophils # (Auto) 0.1 x10^3/uL (0.0-0.7) Basophils # (Auto) 0.1 x10^3/uL (0.0-0.2) Lactic Acid Level 2.4 mmol/L (0.4-2.0) 2.6 mmol/L (0.4-2.0) Urine Collection Type Unknown Urine Color Yellow Urine Clarity Cloudy Urine pH 5.5 Urine Specific [place] 1.025 Urine Protein 30 mg/dL (NEG-TRACE) Urine Glucose (UA) >=1000 mg/dL (NEG) Urine Ketones (Stick) 40 mg/dL (NEG) Urine Blood Trace (NEG) Urine Nitrite Negative (NEG) Urine Bilirubin Negative (NEG) Urine Urobilinogen Dipstick 1.0 mg/dL (0.2 mg/dL) Urine Leukocyte Esterase Moderate (NEG) Urine RBC 6-10 /HPF (0-2) Urine WBC >40 /HPF (0-4) Urine Squamous Epithelial Cells Mod /LPF Urine Bacteria Many /HPF (0-FEW) Urine Mucus Mod /LPF Urine Opiates Screen Neg (NEG) Urine Methadone Screen Neg (NEG) Urine Barbiturates Neg (NEG) Urine Phencyclidine Screen Neg (NEG) Urine Amphetamine/Methamphetamine Pos (NEG) Urine Benzodiazepines Screen Neg (NEG) Urine Cocaine Screen Neg (NEG) Urine Cannabinoids Screen Neg (NEG) Urine Ethyl Alcohol Pos (NEG) Sodium Level 135 mmol/L (136-145) Potassium Level 3.1 mmol/L (3.5-5.1) Chloride Level 95 mmol/L (98-107) Carbon Dioxide Level 26 mmol/L (21-32) Anion Gap 14 (6-14) Blood Urea Nitrogen 8 mg/dL (7-20) Creatinine 0.7 mg/dL (0.6-1.0) Estimated GFR (Cockcroft-Gault) 89.3 BUN/Creatinine Ratio 11 (6-20) Glucose Level 339 mg/dL (70-99) Calcium Level 8.8 mg/dL (8.5-10.1) Total Bilirubin 0.1 mg/dL (0.2-1.0) Direct Bilirubin < 0.1 mg/dL (0.0-0.2) Aspartate Amino Transf (AST/SGOT) 15 U/L (15-37) Alanine Aminotransferase (ALT/SGPT) 14 U/L (14-59) Alkaline Phosphatase 68 U/L (46-116) Total Protein 5.7 g/dL (6.4-8.2) Albumin 2.1 g/dL (3.4-5.0) Albumin/Globulin Ratio 0.5 (1.0-1.7) Ethyl Alcohol Level 121 mg/dL (0-10) Test 06/28/19 11:48 06/28/19 16:59 06/28/19 20:25 06/28/19 21:19 Glucose (Fingerstick) 200 mg/dL (70-99) 236 mg/dL (70-99) 279 mg/dL (70-99) Lactic Acid Level 1.9 mmol/L (0.4-2.0) Test 06/29/19 07:38 06/29/19 10:01 Glucose (Fingerstick) 212 mg/dL (70-99) White Blood Count 10.8 x10^3/uL (4.0-11.0) Red Blood Count 3.36 x10^6/uL (3.50-5.40) Hemoglobin 10.0 g/dL (12.0-15.5) Hematocrit 30.2 % (36.0-47.0) Mean Corpuscular Volume 90 fL (79-100) Mean Corpuscular Hemoglobin 30 pg (25-35) Mean Corpuscular Hemoglobin Concent 33 g/dL (31-37) Red Cell Distribution Width 14.8 % (11.5-14.5) Platelet Count 316 x10^3/uL (140-400) Neutrophils (%) (Auto) 76 % (31-73) Lymphocytes (%) (Auto) 15 % (24-48) Monocytes (%) (Auto) 7 % (0-9) Eosinophils (%) (Auto) 1 % (0-3) Basophils (%) (Auto) 1 % (0-3) Neutrophils # (Auto) 8.2 x10^3/uL (1.8-7.7) Lymphocytes # (Auto) 1.6 x10^3/uL (1.0-4.8) Monocytes # (Auto) 0.8 x10^3/uL (0.0-1.1) Eosinophils # (Auto) 0.1 x10^3/uL (0.0-0.7) Basophils # (Auto) 0.1 x10^3/uL (0.0-0.2) Sodium Level 138 mmol/L (136-145) Potassium Level 3.1 mmol/L (3.5-5.1) Chloride Level 102 mmol/L (98-107) Carbon Dioxide Level 24 mmol/L (21-32) Anion Gap 12 (6-14) Blood Urea Nitrogen 6 mg/dL (7-20) Creatinine 0.6 mg/dL (0.6-1.0) Estimated GFR (Cockcroft-Gault) 106.7 Glucose Level 194 mg/dL (70-99) Calcium Level 6.8 mg/dL (8.5-10.1) Laboratory Tests Test 06/28/19 16:59 06/28/19 20:25 06/28/19 21:19 06/29/19 07:38 Glucose (Fingerstick) 236 mg/dL (70-99) 279 mg/dL (70-99) 212 mg/dL (70-99) Lactic Acid Level 1.9 mmol/L (0.4-2.0) Test 06/29/19 10:01 White Blood Count 10.8 x10^3/uL (4.0-11.0) Red Blood Count 3.36 x10^6/uL (3.50-5.40) Hemoglobin 10.0 g/dL (12.0-15.5) Hematocrit 30.2 % (36.0-47.0) Mean Corpuscular Volume 90 fL (79-100) Mean Corpuscular Hemoglobin 30 pg (25-35) Mean Corpuscular Hemoglobin Concent 33 g/dL (31-37) Red Cell Distribution Width 14.8 % (11.5-14.5) Platelet Count 316 x10^3/uL (140-400) Neutrophils (%) (Auto) 76 % (31-73) Lymphocytes (%) (Auto) 15 % (24-48) Monocytes (%) (Auto) 7 % (0-9) Eosinophils (%) (Auto) 1 % (0-3) Basophils (%) (Auto) 1 % (0-3) Neutrophils # (Auto) 8.2 x10^3/uL (1.8-7.7) Lymphocytes # (Auto) 1.6 x10^3/uL (1.0-4.8) Monocytes # (Auto) 0.8 x10^3/uL (0.0-1.1) Eosinophils # (Auto) 0.1 x10^3/uL (0.0-0.7) Basophils # (Auto) 0.1 x10^3/uL (0.0-0.2) Sodium Level 138 mmol/L (136-145) Potassium Level 3.1 mmol/L (3.5-5.1) Chloride Level 102 mmol/L (98-107) Carbon Dioxide Level 24 mmol/L (21-32) Anion Gap 12 (6-14) Blood Urea Nitrogen 6 mg/dL (7-20) Creatinine 0.6 mg/dL (0.6-1.0) Estimated GFR (Cockcroft-Gault) 106.7 Glucose Level 194 mg/dL (70-99) Calcium Level 6.8 mg/dL (8.5-10.1) Microbiology 06/28/19 Blood Culture - Preliminary, Resulted NO GROWTH AFTER 1 DAY Medications Current Medications Sodium Chloride 1,000 ml @ 1,000 mls/hr 1X ONCE IV Last administered on 06/28/19at 03:42; Start 06/28/19 at 02:30; Stop 06/28/19 at 03:29; Status DC Sodium Chloride 1,000 ml @ 1,000 mls/hr 1X ONCE IV Last administered on 06/28/19at 05:44; Start 06/28/19 at 02:30; Stop 06/28/19 at 03:29; Status DC Cefazolin Sodium/ Dextrose 50 ml @ 100 mls/hr 1X ONCE IV Last administered on 06/28/19at 02:53; Start 06/28/19 at 02:30; Stop 06/28/19 at 02:59; Status DC Vancomycin HCl 250 ml @ 250 mls/hr 1X ONCE IV Last administered on 06/28/19at 02:54; Start 06/28/19 at 02:30; Stop 06/28/19 at 03:29; Status DC Fentanyl Citrate (Fentanyl 2ml Vial) 50 mcg 1X ONCE IVP Last administered on 06/28/19at 02:39; Start 06/28/19 at 02:30; Stop 06/28/19 at 02:31; Status DC Ibuprofen (Motrin) 600 mg 1X ONCE PO Last administered on 06/28/19at 04:34; Start 06/28/19 at 04:15; Stop 06/28/19 at 04:18; Status DC Potassium Chloride (Klor-Con) 40 meq 1X ONCE PO Last administered on 06/28/19at 10:22; Start 06/28/19 at 06:30; Stop 06/28/19 at 06:33; Status DC Sodium Chloride 1,000 ml @ 150 mls/hr Q6H40M IV Last administered on 06/29/19at 01:30; Start 06/28/19 at 06:30; Stop 06/29/19 at 06:29; Status DC Dextrose (Dextrose 50%-Water Syringe) 12.5 gm PRN Q15MIN PRN IV SEE COMMENTS; Start 06/28/19 at 06:30; Stop 06/29/19 at 08:47; Status DC Insulin Glargine (Lantus Syringe) 8 unit QHS SQ Last administered on 06/28/19at 21:37; Start 06/28/19 at 21:00 Insulin Human Lispro (HumaLOG) 0-7 UNITS TIDACHC SQ Last administered on 06/28/19at 21:38; Start 06/28/19 at 11:30; Stop 06/29/19 at 08:42; Status DC Dextrose (Dextrose 50%-Water Syringe) 12.5 gm PRN Q15MIN PRN IV SEE COMMENTS; Start 06/28/19 at 10:30; Status UNV Acetaminophen/ Hydrocodone Bitart (Lortab 5/325) 1 tab PRN Q6HRS PRN PO PAIN [facility] administered on 06/29/19at 04:18; Start 06/28/19 at 10:30 Morphine Sulfate (Morphine Sulfate) 2 mg PRN Q4HRS PRN IV MODERATE-SEVERE PAIN Last administered on 06/29/19at 02:24; Start 06/28/19 at 10:30 Enoxaparin Sodium (Lovenox 40mg Syringe) 40 mg DAILY SQ Last administered on 06/29/19at 09:01; Start 06/28/19 at 12:00 Ketorolac Tromethamine (Toradol 30mg Vial) 30 mg PRN Q6HRS PRN IVP MILD PAIN 1- 3 Last administered on 06/29/19at 05:49; Start 06/28/19 at 10:30; Stop 07/03/19 at 10:29 Multivitamins 10 ml/Thiamine HCl 100 mg/Folic Acid 1 mg/Sodium Chloride 1,011.2 ml @ 100 mls/ hr DAILY IV Last administered on 06/29/19at 09:01; Start 06/28/19 at 12:00; Stop 07/02/19 at 19:07 Lorazepam (Ativan) 2 mg PRN Q1HR PRN PO For CIWA 8-14; Start 06/28/19 at 11:00 Lorazepam (Ativan Inj) 1 mg PRN Q1HR PRN IV For CIWA 8-14; Start 06/28/19 at 11:00 Haloperidol Lactate (Haldol Inj) 5 mg PRN Q4HRS PRN IVP Hallucinatns,Confusn,Delirium; Start 06/28/19 at 11:00 Diphenhydramine HCl (Benadryl) 25 mg PRN Q15MIN PRN IVP EPS symptoms 2'Haldol admin; Start 06/28/19 at 11:00 Clonidine HCl (Catapres) 0.1 mg PRN Q1HR PRN PO SBP > 180 or DBP > 100, MRX3; Start 06/28/19 at 11:00 Vancomycin HCl 1 gm/Sodium Chloride 250 ml @ 250 mls/hr Q12H IV Last administered on 06/29/19at 02:26; Start 06/28/19 at 15:00 Vancomycin HCl (Vanco Per Pharmacy) 1 each PRN DAILY PRN MC SEE COMMENTS Last administered on 06/28/19at 16:08; Start 06/28/19 at 11:00 Ceftriaxone Sodium (Rocephin) 1 gm Q24H IVP Last administered on 06/28/19at 11 :39; Start 06/28/19 at 12:00 Influenza Virus Vaccine Quadrival (Afluria Quad 2019-20 (3yr Up) Syringe) 0.5 ml ONCE ONCE VAX IM Last administered on 06/28/19at 15:25; Start 06/28/19 at 15:00; Stop 06/28/19 at 15:01; Status DC Iohexol (Omnipaque 300 Mg/ml) 75 ml 1X ONCE IV ; Start 06/28/19 at 14:45; Stop 06/28/19 at 14:46; Status DC Info (CONTRAST GIVEN -- Rx MONITORING) 1 each PRN DAILY PRN MC SEE COMMENTS; Start 06/28/19 at 14:45; Stop 06/30/19 at 14:44 Lactobacillus Rhamnosus (Culturelle) 1 cap BID PO Last administered on 06/29/19at 09:00; Start 06/28/19 at 21:00 Vancomycin HCl (Vancomycin Trough Level) 1 each 1X ONCE MC ; Start 06/29/19 at 14:30; Stop 06/29/19 at 14:31 Multivitamins 10 ml/Thiamine HCl 100 mg/Folic Acid 1 mg/Sodium Chloride 1,011.2 ml @ 100 mls/ hr DAILY IV ; Start 06/29/19 at 09:00; Stop 07/03/19 at 19:07; Status UNV Multivitamins (Thera M Plus) 1 tab DAILY PO ; Start 07/03/19 at 09:00 Folic Acid (Folic Acid) 1 mg DAILY PO ; Start 07/03/19 at 09:00 Thiamine Mononitrate (Vitamin B-1) 100 mg DAILY PO ; Start 07/03/19 at 09:00 Thiamine HCl 100 mg DAILY IM ; Start 07/03/19 at 09:00; Stop 07/08/19 at 08:59; Status UNV Thiamine HCl 100 mg/Dextrose 51 ml @ 100 mls/hr DAILY IV ; Start 07/03/19 at 09:00; Stop 07/07/19 at 09:31; Status UNV Lorazepam (Ativan) 2 mg Q6H PO Last administered on 06/29/19at 09:00; Start 06/28/19 at 20:00; Stop 06/30/19 at 02:01 Chlordiazepoxide (Librium) 25 mg Q6H PO ; Start 06/28/19 at 19:30; Stop 06/30/19 at 01:31; Status UNV Chlordiazepoxide (Librium) 25 mg PRN Q6HRS PRN PO ANXIETY / AGITATION; Start 06/29/19 at 08:45 Insulin Human Lispro (HumaLOG) 0-9 UNITS TIDWMEALS SQ ; Start 06/29/19 at 12:00 Dextrose (Dextrose 50%-Water Syringe) 12.5 gm PRN Q15MIN PRN IV SEE COMMENTS; Start 06/29/19 at 08:45 Nicotine (Nicoderm Cq 21mg) 1 patch PRN DAILY PRN TD SMOKING CESSATION; Start 06/29/19 at 08:45 Active Scripts Active Reported No Known Medications Prior To Admisstion (Info) Each 1 Each Vitals/I & O Vital Sign - Last 24 Hours 06/28/19 06/28/19 06/28/19 06/28/19 12:16 13:07 14:09 15:32 Temp 98.4 98.4 98.4 98.4 Pulse 110 110 Resp 17 17 B/P (MAP) 147/83 (104) 147/83 (104) Pulse Ox 97 97 O2 Delivery Room Air Room Air Room Air Room Air 06/28/19 06/28/19 06/28/19 06/28/19 19:00 20:00 21:25 21:26 Temp 102.5 102.5 Pulse 114 Resp 18 20 20 B/P (MAP) 138/87 (104) Pulse Ox 95 95 95 O2 Delivery Room Air Room Air Room Air 06/28/19 06/28/19 06/28/19 06/29/19 21:56 22:25 23:00 02:24 Temp 100.2 100.2 Pulse 106 Resp 18 18 20 18 B/P (MAP) 135/86 (102) Pulse Ox 93 93 93 93 O2 Delivery Room Air Room Air Room Air 06/29/19 06/29/19 06/29/19 06/29/19 02:54 03:00 04:18 05:18 Temp 100.1 100.1 Pulse 106 Resp 18 20 18 18 B/P (MAP) 147/89 (108) Pulse Ox 93 93 93 93 O2 Delivery Room Air Room Air Room Air 06/29/19 06/29/19 07:00 11:00 Temp 98.6 98.4 98.6 98.4 Pulse 100 98 Resp 16 16 B/P (MAP) 121/73 (89) 137/86 (103) Pulse Ox 94 96 O2 Delivery Room Air Room Air Intake and Output 06/28/19 06/28/19 06/29/19 15:00 23:00 07:00 Intake Total 320 ml 480 ml Output Total 225 ml Balance 320 ml 255 ml JEANNIE RAJPUT MD Jun 29, 2019 11:55
[2019-06-29] MEDS ORDERED: HALOPERIDOL LACTATE 5 MG/ML VIAL. IVP PRN (12:00)
[2019-06-29] MEDS: INSULIN LISPRO 300 UNITS/3 ML VIAL. SQ SCH ×2 (12:00→17:00)
[2019-06-29] MEDS: cefTRIAXone IV Push 1 GM VIAL. IVP SCH (12:42)
[2019-06-29] MEDS: VANCOMYCIN PER PHARMACY MC PRN ×2 (14:12→14:48)
[2019-06-29 14:40] LABS: CREATININE 0.6 mg/dL (0.6-1.0); GFR 106.7; VANC TR 6.6 mcg/mL (10.0-20.0)
--- NOTE | 2019-06-29 14:49 | NUR ---
Pharmacy Vancomycin Dosing Note S: Consulted to monitor and dose vancomycin started 06/28/19. O: YOSSI PANG is a 48 year old F with Cellulitis, POSS SEPTIC ARTHRITIS . Other Antibiotics: CEFTRIAXONE LABS: Last BUN: 6 Last Creatinine: 0.6 Creatinine Clearance: 98 mL/min Last WBC: 10.8 Last Procalcitonin: Tmax (past 24 hours): 100.2 Microbiology: BLOOD: NGTD I/O: 800/225 Drug Levels: Last Trough level: 6.6 on 06/29/19 at 1420 Last dose given 06/29/19 at 0226 Vancomycin Dosing: Dosing Weight: Actual Target Trough: 15-20 A: Based on: trough P: 1. Change Vancomycin to 1000 mg IV q8h 2. Follow up Trough level on 06/30/19 at 1430 3. Pharmacy will continue to monitor, follow and adjust therapy as needed. Simin Rhoades RPH, 06/29/19 [id number]
[2019-06-29 15:00] VITALS: BP 141/82
--- NOTE | 2019-06-29 18:49 | PDOC ---
PROGRESS NOTES Subjective Subjective Problems overnight: Patient reevaluated later as she was more awake and alert complains of left shoulder pain Objective Vital Signs Vital Signs Date Time Temp Pulse Resp B/P (MAP) Pulse Ox O2 Delivery O2 Flow Rate FiO2 06/29/19 15:58 Room Air 06/29/19 15:00 98.1 107 16 141/82 (101) 93 98.1 Physical Exam Examination she is acutely tender over the left acromioclavicular joint compared to the right minimal shoulder motion that aggravates the pain Labs Laboratory Tests Test 06/28/19 01:10 06/28/19 02:30 06/28/19 04:10 06/28/19 05:35 White Blood Count 12.1 x10^3/uL (4.0-11.0) Red Blood Count 3.89 x10^6/uL (3.50-5.40) Hemoglobin 11.5 g/dL (12.0-15.5) Hematocrit 34.8 % (36.0-47.0) Mean Corpuscular Volume 90 fL (79-100) Mean Corpuscular Hemoglobin 30 pg (25-35) Mean Corpuscular Hemoglobin Concent 33 g/dL (31-37) Red Cell Distribution Width 14.4 % (11.5-14.5) Platelet Count 333 x10^3/uL (140-400) Neutrophils (%) (Auto) 66 % (31-73) Lymphocytes (%) (Auto) 21 % (24-48) Monocytes (%) (Auto) 11 % (0-9) Eosinophils (%) (Auto) 1 % (0-3) Basophils (%) (Auto) 1 % (0-3) Neutrophils # (Auto) 8.1 x10^3/uL (1.8-7.7) Lymphocytes # (Auto) 2.5 x10^3/uL (1.0-4.8) Monocytes # (Auto) 1.3 x10^3/uL (0.0-1.1) Eosinophils # (Auto) 0.1 x10^3/uL (0.0-0.7) Basophils # (Auto) 0.1 x10^3/uL (0.0-0.2) Lactic Acid Level 2.4 mmol/L (0.4-2.0) 2.6 mmol/L (0.4-2.0) Urine Collection Type Unknown Urine Color Yellow Urine Clarity Cloudy Urine pH 5.5 Urine Specific [place] 1.025 Urine Protein 30 mg/dL (NEG-TRACE) Urine Glucose (UA) >=1000 mg/dL (NEG) Urine Ketones (Stick) 40 mg/dL (NEG) Urine Blood Trace (NEG) Urine Nitrite Negative (NEG) Urine Bilirubin Negative (NEG) Urine Urobilinogen Dipstick 1.0 mg/dL (0.2 mg/dL) Urine Leukocyte Esterase Moderate (NEG) Urine RBC 6-10 /HPF (0-2) Urine WBC >40 /HPF (0-4) Urine Squamous Epithelial Cells Mod /LPF Urine Bacteria Many /HPF (0-FEW) Urine Mucus Mod /LPF Urine Opiates Screen Neg (NEG) Urine Methadone Screen Neg (NEG) Urine Barbiturates Neg (NEG) Urine Phencyclidine Screen Neg (NEG) Urine Amphetamine/Methamphetamine Pos (NEG) Urine Benzodiazepines Screen Neg (NEG) Urine Cocaine Screen Neg (NEG) Urine Cannabinoids Screen Neg (NEG) Urine Ethyl Alcohol Pos (NEG) Sodium Level 135 mmol/L (136-145) Potassium Level 3.1 mmol/L (3.5-5.1) Chloride Level 95 mmol/L (98-107) Carbon Dioxide Level 26 mmol/L (21-32) Anion Gap 14 (6-14) Blood Urea Nitrogen 8 mg/dL (7-20) Creatinine 0.7 mg/dL (0.6-1.0) Estimated GFR (Cockcroft-Gault) 89.3 BUN/Creatinine Ratio 11 (6-20) Glucose Level 339 mg/dL (70-99) Calcium Level 8.8 mg/dL (8.5-10.1) Total Bilirubin 0.1 mg/dL (0.2-1.0) Direct Bilirubin < 0.1 mg/dL (0.0-0.2) Aspartate Amino Transf (AST/SGOT) 15 U/L (15-37) Alanine Aminotransferase (ALT/SGPT) 14 U/L (14-59) Alkaline Phosphatase 68 U/L (46-116) Total Protein 5.7 g/dL (6.4-8.2) Albumin 2.1 g/dL (3.4-5.0) Albumin/Globulin Ratio 0.5 (1.0-1.7) Ethyl Alcohol Level 121 mg/dL (0-10) Test 06/28/19 11:48 06/28/19 16:59 06/28/19 20:25 06/28/19 21:19 Glucose (Fingerstick) 200 mg/dL (70-99) 236 mg/dL (70-99) 279 mg/dL (70-99) Lactic Acid Level 1.9 mmol/L (0.4-2.0) Test 06/29/19 07:38 06/29/19 10:01 06/29/19 11:43 06/29/19 14:20 Glucose (Fingerstick) 212 mg/dL (70-99) 166 mg/dL (70-99) White Blood Count 10.8 x10^3/uL (4.0-11.0) Red Blood Count 3.36 x10^6/uL (3.50-5.40) Hemoglobin 10.0 g/dL (12.0-15.5) Hematocrit 30.2 % (36.0-47.0) Mean Corpuscular Volume 90 fL (79-100) Mean Corpuscular Hemoglobin 30 pg (25-35) Mean Corpuscular Hemoglobin Concent 33 g/dL (31-37) Red Cell Distribution Width 14.8 % (11.5-14.5) Platelet Count 316 x10^3/uL (140-400) Neutrophils (%) (Auto) 76 % (31-73) Lymphocytes (%) (Auto) 15 % (24-48) Monocytes (%) (Auto) 7 % (0-9) Eosinophils (%) (Auto) 1 % (0-3) Basophils (%) (Auto) 1 % (0-3) Neutrophils # (Auto) 8.2 x10^3/uL (1.8-7.7) Lymphocytes # (Auto) 1.6 x10^3/uL (1.0-4.8) Monocytes # (Auto) 0.8 x10^3/uL (0.0-1.1) Eosinophils # (Auto) 0.1 x10^3/uL (0.0-0.7) Basophils # (Auto) 0.1 x10^3/uL (0.0-0.2) Erythrocyte Sedimentation Rate 95 (0-25) Sodium Level 138 mmol/L (136-145) Potassium Level 3.1 mmol/L (3.5-5.1) Chloride Level 102 mmol/L (98-107) Carbon Dioxide Level 24 mmol/L (21-32) Anion Gap 12 (6-14) Blood Urea Nitrogen 6 mg/dL (7-20) Creatinine 0.6 mg/dL (0.6-1.0) 0.6 mg/dL (0.6-1.0) Estimated GFR (Cockcroft-Gault) 106.7 106.7 Glucose Level 194 mg/dL (70-99) Calcium Level 6.8 mg/dL (8.5-10.1) Hepatitis A IgM Antibody Nonreactive (Nonreactive) Hepatitis B Surface Antigen Nonreactive (Nonreactive) Hepatitis B Core IgM Antibody Nonreactive (Nonreactive) Hepatitis C IgG Antibody Nonreactive (Nonreactive) HIV (1&2) Antibody Screen Nonreactive (Nonreactive) Vancomycin Level Trough 6.6 mcg/mL (10.0-20.0) Vancomycin Last Dose Date 06/29/19 Vancomycin Last Dose Time 0300 Laboratory Tests Test 06/28/19 20:25 06/28/19 21:19 06/29/19 07:38 06/29/19 10:01 Lactic Acid Level 1.9 mmol/L (0.4-2.0) Glucose (Fingerstick) 279 mg/dL (70-99) 212 mg/dL (70-99) White Blood Count 10.8 x10^3/uL (4.0-11.0) Red Blood Count 3.36 x10^6/uL (3.50-5.40) Hemoglobin 10.0 g/dL (12.0-15.5) Hematocrit 30.2 % (36.0-47.0) Mean Corpuscular Volume 90 fL (79-100) Mean Corpuscular Hemoglobin 30 pg (25-35) Mean Corpuscular Hemoglobin Concent 33 g/dL (31-37) Red Cell Distribution Width 14.8 % (11.5-14.5) Platelet Count 316 x10^3/uL (140-400) Neutrophils (%) (Auto) 76 % (31-73) Lymphocytes (%) (Auto) 15 % (24-48) Monocytes (%) (Auto) 7 % (0-9) Eosinophils (%) (Auto) 1 % (0-3) Basophils (%) (Auto) 1 % (0-3) Neutrophils # (Auto) 8.2 x10^3/uL (1.8-7.7) Lymphocytes # (Auto) 1.6 x10^3/uL (1.0-4.8) Monocytes # (Auto) 0.8 x10^3/uL (0.0-1.1) Eosinophils # (Auto) 0.1 x10^3/uL (0.0-0.7) Basophils # (Auto) 0.1 x10^3/uL (0.0-0.2) Erythrocyte Sedimentation Rate 95 (0-25) Sodium Level 138 mmol/L (136-145) Potassium Level 3.1 mmol/L (3.5-5.1) Chloride Level 102 mmol/L (98-107) Carbon Dioxide Level 24 mmol/L (21-32) Anion Gap 12 (6-14) Blood Urea Nitrogen 6 mg/dL (7-20) Creatinine 0.6 mg/dL (0.6-1.0) Estimated GFR (Cockcroft-Gault) 106.7 Glucose Level 194 mg/dL (70-99) Calcium Level 6.8 mg/dL (8.5-10.1) Hepatitis A IgM Antibody Nonreactive (Nonreactive) Hepatitis B Surface Antigen Nonreactive (Nonreactive) Hepatitis B Core IgM Antibody Nonreactive (Nonreactive) Hepatitis C IgG Antibody Nonreactive (Nonreactive) HIV (1&2) Antibody Screen Nonreactive (Nonreactive) Test 06/29/19 11:43 06/29/19 14:20 Glucose (Fingerstick) 166 mg/dL (70-99) Creatinine 0.6 mg/dL (0.6-1.0) Estimated GFR (Cockcroft-Gault) 106.7 Vancomycin Level Trough 6.6 mcg/mL (10.0-20.0) Vancomycin Last Dose Date 06/29/19 Vancomycin Last Dose Time [address] scan of the left shoulder shows a distended a chromic likely joint capsule and some stranding around the area suspicious for infection Assessment Assessment Left shoulder pain and possible acromioclavicular joint infection Plan Plan of Care On her earlier examination she was minimally responsive due to some sedation and withdrawal symptoms I think her pain is now more concentrated around the acromioclavicular joint and more reliably reproduced. I talked to her about planned surgical intervention tomorrow after she gets a bit more stabilized hydrated and alert and we will plan on irrigation debridement of a possible septic joint/abscess in the area left shoulder acromioclavicular joint ZAKIA KAUR MD Jun 29, 2019 18:49
[2019-06-29 19:00] VITALS: BP 168/92
[2019-06-29] MEDS: INSULIN GLARGINE SYRINGE. SQ SCH (21:25)
[2019-06-29 23:00] VITALS: BP 161/88
--- NOTE | 2019-06-30 00:11 | CONS ---
DATE OF CONSULTATION: 06/29/2019 REFERRING PHYSICIAN: Dr. Barvo. REASON FOR CONSULTATION: Antibiotic management. HISTORY OF PRESENT ILLNESS: A 48-year-old female with history of diabetes, hypertension, hepatitis, neuropathy, amphetamine use, presented to the ER on 06/28/2019 with complaints of left shoulder pain, which started a couple of days prior to admission, getting worse. The patient was unable to move her arm without any pain. She denies any fevers, chills, but had fever, low-grade upon presentation with leukocytosis. She has a history of heavy alcohol dependence with hepatitis. She was started on vancomycin and ceftriaxone. ID consult has been requested for antibiotic management. Orthopedics has been consulted. The patient underwent a CT of the upper extremity, which showed soft tissue changes centered around the AC joint. The AC joint itself shows a mildly distended capsule, which is enhancing. There is presumably a small amount of fluid within the joint contributing to the capsular distention, mild bony irregularity along the articular surface of the clavicle, more so than the acromial aspect of the joint, but without erosion to suggest osteomyelitis with surrounding inflammatory change could be atypical for degenerative arthritis and appearance is concerning for a septic AC joint. If the surrounding inflammatory changes appear cellulitic by physical exam, it may be difficult to aspirate the joint given the possibility of seeding. No evidence of septic arthritis involving the glenohumeral joint and there does not appear to be fluid distention of the subacromial subdeltoid bursa, multinodular thyroid. Today, the patient has bouts of confusion off and on, has been seen by Orthopedics. The patient continues to have pain and unable to lift her arm related to the pain. She said that she started using methamphetamine a week ago. Denies any history of IVDU. Orthopedics is planning for possible irrigation in the OR tomorrow if stable. PAST MEDICAL HISTORY: Heavy ETOH dependence, diabetes, neuropathy, hypertension, history of hepatitis, history of polysubstance abuse. PAST SURGICAL HISTORY: None. FAMILY HISTORY: As per HPI. SOCIAL HISTORY: Smokes 1 pack per day. ETOH: Heavy. Drugs: Crystal meth. CURRENT MEDICATIONS: IV vancomycin, ceftriaxone, also got cefazolin. ALLERGIES: No known drug allergies. REVIEW OF SYSTEMS: Negative except for above in HPI. PHYSICAL EXAMINATION: VITAL SIGNS: Temperature 97.7, pulse 110, respiratory rate 27, blood pressure 139/76, oxygen saturation 96% and T-max 102.5. GENERAL: Alert, awake, goes back to sleep, answers a few questions, appears comfortable except for when movement is made of the left shoulder from pain. HEENT: Normocephalic, atraumatic, anicteric. No thrush. Dentition fair. NECK: Supple. LUNGS: Clear bilaterally. HEART: S1, S2. ABDOMEN: Soft, nontender, nondistended. EXTREMITIES: No edema, no cyanosis. Left shoulder swelling, mild redness on the superior aspect, painful to touch, swelling. There is no fluctuance. Extensive pain around the shoulder with passive range of motion. DERMATOLOGIC: Warm, dry. No generalized rash. CENTRAL NERVOUS SYSTEM: Moves all 4 extremities. Grossly nonfocal. PSYCHIATRIC: Cooperative. LABORATORY DATA: WBC 12.1, now is 10.8; hemoglobin 11.5; hematocrit 34.8; platelets 333. Sodium 135, potassium 3.1, chloride 95, bicarbonate 26, BUN 8, creatinine 0.7, glucose 339; lactate 2.6, it was 2.4. Total protein 5.7, albumin 2.1. Lactate repeat is 1.9. UA shows greater than 1000 glucose, moderate leukocyte esterase, greater than 40 wbc's. UDS is positive for amphetamine, methamphetamine and ethyl alcohol. MICROBIOLOGY: Blood culture pending at this time. IMAGING: CT of the upper extremity as above. IMPRESSION: 1. Left shoulder cellulitis with decrease in range of motion, possible deep tissue infection,possible septic joint. CT of the shoulder as above. Awaiting I and D by Ortho 2. Leukocytosis. 3. Lactic acidosis. 4. History of alcoholism. 5. Polysubstance abuse. 6. Diabetes. 7. History of hepatitis. 8. Neuropathy. RECOMMENDATIONS: 1. Continue IV vancomycin and ceftriaxone.Monitor renal functions closely 2. Ortho plans for an I and D tomorrow. 3. Send intraoperative fluid or tissue for cultures. 4. Follow up cultures and labs. 5. Continue supportive care. 6. Check HIV, patient gave verbal consent. 7. Continue supportive care. Thank you for consulting Infectious Disease to participate in this patient's care. We will follow along with you. Discussed with nursing staff. JAKY TENORIO MD DR: SUHAIL/joe JOB#: [id number] / [id number] OLIVIA
[2019-06-30 03:00] VITALS: BP 149/88
[2019-06-30] MEDS: HYDROcodone/APAP 5/325MG 1 TAB TABLET PO PRN ×2 (03:43→20:20)
[2019-06-30] MEDS: KETOROLAC 30 MG/ML VIAL. IVP PRN (05:35)
[2019-06-30] MEDS: VANCOMYCIN 1 GM in IV NORMAL SALINE 250ML 250 ML IV SCH (06:41)
[2019-06-30 07:00] VITALS: BP 132/89
[2019-06-30] MEDS: INSULIN LISPRO 300 UNITS/3 ML VIAL. SQ SCH ×3 (08:00→17:00)
[2019-06-30 08:13] LABS: HEMOGLOBIN A1C 12.3 % (4.8-5.6)
[2019-06-30] MEDS: LACTOBACILLUS RHAMNOSUS GG 1 CAPSULE. PO SCH ×2 (09:00→20:20)
[2019-06-30] MEDS: ENOXAPARIN 40 MG/0.4 ML SYRINGE. SQ SCH (09:00)
--- NOTE | 2019-06-30 09:00 | NUR ---
aNtasha held due to planned surgery at 1350 today.
[2019-06-30] MEDS: MULTIVIT INFUSN,ADULT 4,VIT K 10 ML, THIAMINE INJ 100 MG, FOLIC ACID INJ 1 MG in IV NOR... IV SCH (09:08)
[2019-06-30] MEDS: MORPHINE SULFATE 2 MG/ML VIAL. IV PRN ×2 (09:27→21:54)
--- NOTE | 2019-06-30 09:59 | PDOC ---
Infectious Disease Note Subjective: Subjective pt c/o shoulder pain awaiting surgery today no f/c/n/v/d ROS: ROS Negative otherwise. Vital Signs: Vital Signs Vital Signs Date Time Temp Pulse Resp B/P (MAP) Pulse Ox O2 Delivery O2 Flow Rate FiO2 06/30/19 09:27 20 98 Room Air 06/30/19 07:00 97.9 92 132/89 (103) 97.9 Physical Exam: PHYSICAL EXAM GENERAL: Alert, awake, goes back to sleep, answers a few questions, appears comfortable except for when movement is made of the left shoulder from pain. HEENT: Normocephalic, atraumatic, anicteric. No thrush. Dentition fair. NECK: Supple. LUNGS: Clear bilaterally. HEART: S1, S2. ABDOMEN: Soft, nontender, nondistended. EXTREMITIES: No edema, no cyanosis. Left shoulder swelling, redness on the superior aspect, painful to touch, ? abscess. There is no fluctuance. Extensive pain around the shoulder with passive range of motion. DERMATOLOGIC: Warm, dry. No generalized rash. CENTRAL NERVOUS SYSTEM: Moves all 4 extremities. Grossly nonfocal. PSYCHIATRIC: Cooperative. Medications: Inpatient Meds: Current Medications Medications (Trade) Dose Ordered Sig/Carmine Start Time Stop Time Status Last Admin Dose Admin Acetaminophen/ Hydrocodone Bitart (Lortab 5/325) 1 tab PRN Q6HRS PRN 06/28/19 10:30 06/30/19 03:43 1 TAB Cefazolin Sodium/ Dextrose 50 ml @ 100 mls/hr 1X ONCE 06/28/19 02:30 06/28/19 02:59 DC 06/28/19 02:53 100 MLS/HR Ceftriaxone Sodium (Rocephin) 1 gm Q24H 06/28/19 12:00 06/29/19 12:42 1 GM Chlordiazepoxide (Librium) 25 mg PRN Q6HRS PRN 06/29/19 08:45 Clonidine HCl (Catapres) 0.1 mg PRN Q1HR PRN 06/28/19 11:00 Dextrose (Dextrose 50%-Water Syringe) 12.5 gm PRN Q15MIN PRN 06/29/19 08:45 Diphenhydramine HCl (Benadryl) 25 mg PRN Q15MIN PRN 06/28/19 11:00 Enoxaparin Sodium (Lovenox 40mg Syringe) 40 mg DAILY 06/28/19 12:00 06/29/19 09:01 40 MG Fentanyl Citrate (Fentanyl 2ml Vial) 50 mcg 1X ONCE 06/28/19 02:30 06/28/19 02:31 DC 06/28/19 02:39 50 MCG Folic Acid (Folic Acid) 1 mg DAILY 07/03/19 09:00 Haloperidol Lactate (Haldol Inj) 2.5 mg PRN Q4HRS PRN 06/29/19 12:00 Ibuprofen (Motrin) 600 mg 1X ONCE 06/28/19 04:15 06/28/19 04:18 DC 06/28/19 04:34 600 MG Influenza Virus Vaccine Quadrival (Afluria Quad 2019-20 (3yr Up) Syringe) 0.5 ml ONCE ONCE 06/28/19 15:00 06/28/19 15:01 DC 06/28/19 15:25 0.5 ML Info (CONTRAST GIVEN -- Rx MONITORING) 1 each PRN DAILY PRN 06/28/19 14:45 06/30/19 14:44 Insulin Glargine (Lantus Syringe) 8 unit QHS 06/28/19 21:00 06/29/19 21:25 8 UNIT Insulin Human Lispro (HumaLOG) 0-9 UNITS TIDWMEALS 06/29/19 12:00 Iohexol (Omnipaque 300 Mg/ml) 75 ml 1X ONCE 06/28/19 14:45 06/28/19 14:46 DC Ketorolac Tromethamine (Toradol 30mg Vial) 30 mg PRN Q6HRS PRN 06/28/19 10:30 07/03/19 10:29 06/30/19 05:35 30 MG Lactobacillus Rhamnosus (Culturelle) 1 cap BID 06/28/19 21:00 06/29/19 21:11 1 CAP Lorazepam (Ativan Inj) 1 mg PRN Q1HR PRN 06/28/19 11:00 06/29/19 11:51 DC Lorazepam (Ativan) 2 mg Q6H 06/28/19 20:00 06/29/19 11:51 DC 06/29/19 09:00 2 MG Morphine Sulfate (Morphine Sulfate) 1 mg PRN Q4HRS PRN 06/29/19 12:00 06/30/19 09:27 1 MG Multivitamins (Thera M Plus) 1 tab DAILY 07/03/19 09:00 Multivitamins 10 ml/Thiamine HCl 100 mg/Folic Acid 1 mg/Sodium Chloride 1,011.2 ml @ 100 mls/ hr DAILY 06/29/19 09:00 07/03/19 19:07 UNV Nicotine (Nicoderm Cq 21mg) 1 patch PRN DAILY PRN 06/29/19 08:45 Potassium Chloride (Klor-Con) 40 meq 1X ONCE 06/28/19 06:30 06/28/19 06:33 DC 06/28/19 10:22 40 MEQ Sodium Chloride 1,000 ml @ 150 mls/hr Q6H40M 06/28/19 06:30 06/29/19 06:29 DC 06/29/19 01:30 150 MLS/HR Thiamine Mononitrate (Vitamin B-1) 100 mg DAILY 07/03/19 09:00 Thiamine HCl 100 mg DAILY 07/03/19 09:00 07/08/19 08:59 UNV Thiamine HCl 100 mg/Dextrose 51 ml @ 100 mls/hr DAILY 07/03/19 09:00 07/07/19 09:31 UNV Vancomycin HCl (Vanco Per Pharmacy) 1 each PRN DAILY PRN 06/28/19 11:00 06/29/19 14:48 1 EACH Vancomycin HCl (Vancomycin Trough Level) 1 each 1X ONCE 06/30/19 14:30 06/30/19 14:31 Vancomycin HCl 1 gm/Sodium Chloride 250 ml @ 250 mls/hr Q8H 06/29/19 15:00 06/30/19 06:41 250 MLS/HR Labs: Lab Laboratory Tests Test 06/29/19 10:01 06/29/19 11:43 06/29/19 14:20 06/29/19 20:58 White Blood Count 10.8 x10^3/uL (4.0-11.0) Red Blood Count 3.36 x10^6/uL (3.50-5.40) Hemoglobin 10.0 g/dL (12.0-15.5) Hematocrit 30.2 % (36.0-47.0) Mean Corpuscular Volume 90 fL (79-100) Mean Corpuscular Hemoglobin 30 pg (25-35) Mean Corpuscular Hemoglobin Concent 33 g/dL (31-37) Red Cell Distribution Width 14.8 % (11.5-14.5) Platelet Count 316 x10^3/uL (140-400) Neutrophils (%) (Auto) 76 % (31-73) Lymphocytes (%) (Auto) 15 % (24-48) Monocytes (%) (Auto) 7 % (0-9) Eosinophils (%) (Auto) 1 % (0-3) Basophils (%) (Auto) 1 % (0-3) Neutrophils # (Auto) 8.2 x10^3/uL (1.8-7.7) Lymphocytes # (Auto) 1.6 x10^3/uL (1.0-4.8) Monocytes # (Auto) 0.8 x10^3/uL (0.0-1.1) Eosinophils # (Auto) 0.1 x10^3/uL (0.0-0.7) Basophils # (Auto) 0.1 x10^3/uL (0.0-0.2) Erythrocyte Sedimentation Rate 95 (0-25) Sodium Level 138 mmol/L (136-145) Potassium Level 3.1 mmol/L (3.5-5.1) Chloride Level 102 mmol/L (98-107) Carbon Dioxide Level 24 mmol/L (21-32) Anion Gap 12 (6-14) Blood Urea Nitrogen 6 mg/dL (7-20) Creatinine 0.6 mg/dL (0.6-1.0) 0.6 mg/dL (0.6-1.0) Estimated GFR (Cockcroft-Gault) 106.7 106.7 Glucose Level 194 mg/dL (70-99) Hemoglobin A1c 12.3 % (4.8-5.6) Calcium Level 6.8 mg/dL (8.5-10.1) Hepatitis A IgM Antibody Nonreactive (Nonreactive) Hepatitis B Surface Antigen Nonreactive (Nonreactive) Hepatitis B Core IgM Antibody Nonreactive (Nonreactive) Hepatitis C IgG Antibody Nonreactive (Nonreactive) HIV (1&2) Antibody Screen Nonreactive (Nonreactive) Glucose (Fingerstick) 166 mg/dL (70-99) 269 mg/dL (70-99) Vancomycin Level Trough 6.6 mcg/mL (10.0-20.0) Vancomycin Last Dose Date 06/29/19 Vancomycin Last Dose Time 0300 Test 06/30/19 07:34 Glucose (Fingerstick) 174 mg/dL (70-99) Objective: Assessment: 1. Left shoulder cellulitis with decrease in range of motion, possible deep tissue infection,possible abscess or septic joint. CT of the shoulder as above. Awaiting I and D by Ortho 2. Leukocytosis. 3. Lactic acidosis. 4. History of alcoholism. 5. Polysubstance abuse. HIV and hepatitis neg 6. Diabetes. 7. History of hepatitis. 8. Neuropathy. Plan: Plan of Care Continue IV vancomycin and ceftriaxone.Monitor renal functions closely Ortho plans for an I and D today Send intraoperative fluid or tissue for cultures. Follow up cultures and labs. Continue supportive care. JAKY TENORIO MD Jun 30, 2019 09:59
--- NOTE | 2019-06-30 10:30 | NUR ---
SW consulted for ETOH use, substance use, dc planning. Chart reviewed and discussed with RN. Pt is from home and self pay. SW discussed with pt who appears lethargic this morning. Pt states she has been in to ETOH treatment before but could not remember the treatment center. SW provided pt with [facility] and [facility] information for IOP programs. SW also provided pt with community and healthcare resources. Pt accepted resources. Per RN, pt will have I&D today. SW will be available as needed.
[2019-06-30 10:54] VITALS: BP 138/79
[2019-06-30] MEDS: cefTRIAXone IV Push 1 GM VIAL. IVP SCH (12:08)
--- NOTE | 2019-06-30 12:33 | PDOC ---
PROGRESS NOTES Chief Complaint Chief Complaint Left shoulder cellulitis - with limited ROM, Sepsis - 2/2 cellulitis with leukocytosis and tachycardia Lactic acidosis - Alcoholism - Hypokalemia - K 3.1, Diabetes - Hypertension - Hepatitis - alcoholic by history Neuropathy - 2/2 ETOH and DM Smoker - nicotine patch Amphetamine use - History of Present Illness History of Present Illness awake - hx etoh and recreational drug use Signif pain and limited ROM on that left shoulder Denies known triggering factor Denies IVDU DM and BS 170s but is NPO FOr I and D later ortho 2 pm on iv abx per ID PLAN: npo, i and d by ortho, IV abx, post op labs follow cultures WOF hyperglycemia once eating CIWA< josué prn dw RN na at bedside Vitals Vitals Vital Signs Date Time Temp Pulse Resp B/P (MAP) Pulse Ox O2 Delivery O2 Flow Rate FiO2 06/30/19 10:54 98.3 89 16 138/79 (98) 97 Room Air 98.3 Physical Exam Physical Exam GENERAL: Alert, awake, goes back to sleep, answers a few questions, appears comfortable except for when movement is made of the left shoulder from pain. HEENT: Normocephalic, atraumatic, anicteric. No thrush. Dentition fair. NECK: Supple. LUNGS: Clear bilaterally. HEART: S1, S2. ABDOMEN: Soft, nontender, nondistended. EXTREMITIES: No edema, no cyanosis. Left shoulder swelling, redness on the superior aspect, painful to touch, ? abscess. There is no fluctuance. Extensive pain around the shoulder with passive range of motion. DERMATOLOGIC: Warm, dry. No generalized rash. CENTRAL NERVOUS SYSTEM: Moves all 4 extremities. Grossly nonfocal. PSYCHIATRIC: Cooperative. General: Alert, Oriented X3, Cooperative, moderate distress (Patient unable to stay awake for more than a few minutes for exam) Heart: Regular rate, Normal S1, Normal S2 Lungs: Clear Abdomen: Normal bowel sounds, Soft, No hepatosplenomegaly, No masses, Other (RUQ tender) Extremities: No clubbing, No cyanosis, Normal pulses, Other (Left shoulder tender, swollen, limited ROM, passive with extreme pain) Skin: No breakdown, No significant lesion, Other (Left shoulder red) Labs LABS Laboratory Tests Test 06/29/19 14:20 06/29/19 20:58 06/30/19 07:34 06/30/19 11:32 Creatinine 0.6 mg/dL (0.6-1.0) Estimated GFR (Cockcroft-Gault) 106.7 Vancomycin Level Trough 6.6 mcg/mL (10.0-20.0) Vancomycin Last Dose Date 06/29/19 Vancomycin Last Dose Time 0300 Glucose (Fingerstick) 269 mg/dL (70-99) 174 mg/dL (70-99) 187 mg/dL (70-99) Review of Systems Review of Systems left shoulder pain, all else is neg Assessment and Plan Assessmemt and Plan Problems Medical Problems: (1) Alcohol abuse Status: Acute (2) Anemia Status: Acute (3) Cellulitis of left shoulder Status: Acute (4) Hypokalemia Status: Acute (5) Methamphetamine abuse Status: Acute (6) Sepsis Status: Acute (7) Uncontrolled diabetes mellitus Status: Acute Comment Review of Relevant I have reviewed the following items chari (where applicable) has been applied. Labs Laboratory Tests Test 06/28/19 16:59 06/28/19 20:25 06/28/19 21:19 06/29/19 07:38 Glucose (Fingerstick) 236 mg/dL (70-99) 279 mg/dL (70-99) 212 mg/dL (70-99) Lactic Acid Level 1.9 mmol/L (0.4-2.0) Test 06/29/19 10:01 06/29/19 11:43 06/29/19 14:20 06/29/19 20:58 White Blood Count 10.8 x10^3/uL (4.0-11.0) Red Blood Count 3.36 x10^6/uL (3.50-5.40) Hemoglobin 10.0 g/dL (12.0-15.5) Hematocrit 30.2 % (36.0-47.0) Mean Corpuscular Volume 90 fL (79-100) Mean Corpuscular Hemoglobin 30 pg (25-35) Mean Corpuscular Hemoglobin Concent 33 g/dL (31-37) Red Cell Distribution Width 14.8 % (11.5-14.5) Platelet Count 316 x10^3/uL (140-400) Neutrophils (%) (Auto) 76 % (31-73) Lymphocytes (%) (Auto) 15 % (24-48) Monocytes (%) (Auto) 7 % (0-9) Eosinophils (%) (Auto) 1 % (0-3) Basophils (%) (Auto) 1 % (0-3) Neutrophils # (Auto) 8.2 x10^3/uL (1.8-7.7) Lymphocytes # (Auto) 1.6 x10^3/uL (1.0-4.8) Monocytes # (Auto) 0.8 x10^3/uL (0.0-1.1) Eosinophils # (Auto) 0.1 x10^3/uL (0.0-0.7) Basophils # (Auto) 0.1 x10^3/uL (0.0-0.2) Erythrocyte Sedimentation Rate 95 (0-25) Sodium Level 138 mmol/L (136-145) Potassium Level 3.1 mmol/L (3.5-5.1) Chloride Level 102 mmol/L (98-107) Carbon Dioxide Level 24 mmol/L (21-32) Anion Gap 12 (6-14) Blood Urea Nitrogen 6 mg/dL (7-20) Creatinine 0.6 mg/dL (0.6-1.0) 0.6 mg/dL (0.6-1.0) Estimated GFR (Cockcroft-Gault) 106.7 106.7 Glucose Level 194 mg/dL (70-99) Hemoglobin A1c 12.3 % (4.8-5.6) Calcium Level 6.8 mg/dL (8.5-10.1) Hepatitis A IgM Antibody Nonreactive (Nonreactive) Hepatitis B Surface Antigen Nonreactive (Nonreactive) Hepatitis B Core IgM Antibody Nonreactive (Nonreactive) Hepatitis C IgG Antibody Nonreactive (Nonreactive) HIV (1&2) Antibody Screen Nonreactive (Nonreactive) Glucose (Fingerstick) 166 mg/dL (70-99) 269 mg/dL (70-99) Vancomycin Level Trough 6.6 mcg/mL (10.0-20.0) Vancomycin Last Dose Date 06/29/19 Vancomycin Last Dose Time 0300 Test 06/30/19 07:34 06/30/19 11:32 Glucose (Fingerstick) 174 mg/dL (70-99) 187 mg/dL (70-99) Laboratory Tests Test 06/29/19 14:20 06/29/19 20:58 06/30/19 07:34 06/30/19 11:32 Creatinine 0.6 mg/dL (0.6-1.0) Estimated GFR (Cockcroft-Gault) 106.7 Vancomycin Level Trough 6.6 mcg/mL (10.0-20.0) Vancomycin Last Dose Date 06/29/19 Vancomycin Last Dose Time 0300 Glucose (Fingerstick) 269 mg/dL (70-99) 174 mg/dL (70-99) 187 mg/dL (70-99) Microbiology 06/28/19 Blood Culture - Preliminary, Resulted NO GROWTH AFTER 1 DAY Medications Current Medications Sodium Chloride 1,000 ml @ 1,000 mls/hr 1X ONCE IV Last administered on 06/28/19at 03:42; Start 06/28/19 at 02:30; Stop 06/28/19 at 03:29; Status DC Sodium Chloride 1,000 ml @ 1,000 mls/hr 1X ONCE IV Last administered on 06/28/19at 05:44; Start 06/28/19 at 02:30; Stop 06/28/19 at 03:29; Status DC Cefazolin Sodium/ Dextrose 50 ml @ 100 mls/hr 1X ONCE IV Last administered on 06/28/19at 02:53; Start 06/28/19 at 02:30; Stop 06/28/19 at 02:59; Status DC Vancomycin HCl 250 ml @ 250 mls/hr 1X ONCE IV Last administered on 06/28/19at 02:54; Start 06/28/19 at 02:30; Stop 06/28/19 at 03:29; Status DC Fentanyl Citrate (Fentanyl 2ml Vial) 50 mcg 1X ONCE IVP Last administered on 06/28/19at 02:39; Start 06/28/19 at 02:30; Stop 06/28/19 at 02:31; Status DC Ibuprofen (Motrin) 600 mg 1X ONCE PO Last administered on 06/28/19at 04:34; Start 06/28/19 at 04:15; Stop 06/28/19 at 04:18; Status DC Potassium Chloride (Klor-Con) 40 meq 1X ONCE PO Last administered on 06/28/19at 10:22; Start 06/28/19 at 06:30; Stop 06/28/19 at 06:33; Status DC Sodium Chloride 1,000 ml @ 150 mls/hr Q6H40M IV Last administered on 06/29/19at 01:30; Start 06/28/19 at 06:30; Stop 06/29/19 at 06:29; Status DC Dextrose (Dextrose 50%-Water Syringe) 12.5 gm PRN Q15MIN PRN IV SEE COMMENTS; Start 06/28/19 at 06:30; Stop 06/29/19 at 08:47; Status DC Insulin Glargine (Lantus Syringe) 8 unit QHS SQ Last administered on 06/29/19at 21:25; Start 06/28/19 at 21:00 Insulin Human Lispro (HumaLOG) 0-7 UNITS TIDACHC SQ Last administered on 06/28/19at 21:38; Start 06/28/19 at 11:30; Stop 06/29/19 at 08:42; Status DC Dextrose (Dextrose 50%-Water Syringe) 12.5 gm PRN Q15MIN PRN IV SEE COMMENTS; Start 06/28/19 at 10:30; Status UNV Acetaminophen/ Hydrocodone Bitart (Lortab 5/325) 1 tab PRN Q6HRS PRN PO PAIN Last administered on 06/30/19at 03:43; Start 06/28/19 at 10:30 Morphine Sulfate (Morphine Sulfate) 2 mg PRN Q4HRS PRN IV MODERATE-SEVERE PAIN Last administered on 06/29/19at 02:24; Start 06/28/19 at 10:30; Stop 06/29/19 at 11:51; Status DC Enoxaparin Sodium (Lovenox 40mg Syringe) 40 mg DAILY SQ Last administered on 06/29/19at 09:01; Start 06/28/19 at 12:00 Ketorolac Tromethamine (Toradol 30mg Vial) 30 mg PRN Q6HRS PRN IVP MILD PAIN 1- 3 Last administered on 06/30/19at 05:35; Start 06/28/19 at 10:30; Stop 07/03/19 at 10:29 Multivitamins 10 ml/Thiamine HCl 100 mg/Folic Acid 1 mg/Sodium Chloride 1,011.2 ml @ 100 mls/ hr DAILY IV Last administered on 06/30/19at 09:08; Start 06/28/19 at 12:00; Stop 07/02/19 at 19:07 Lorazepam (Ativan) 2 mg PRN Q1HR PRN PO For CIWA 8-14; Start 06/28/19 at 11:00; Stop 06/29/19 at 11:51; Status DC Lorazepam (Ativan Inj) 1 mg PRN Q1HR PRN IV For CIWA 8-14; Start 06/28/19 at 11:00; Stop 06/29/19 at 11:51; Status DC Haloperidol Lactate (Haldol Inj) 5 mg PRN Q4HRS PRN IVP Hallucinatns,Confusn,Delirium; Start 06/28/19 at 11:00; Stop 06/29/19 at 11:51; Status DC Diphenhydramine HCl (Benadryl) 25 mg PRN Q15MIN PRN IVP EPS symptoms 2'Haldol admin; Start 06/28/19 at 11:00 Clonidine HCl (Catapres) 0.1 mg PRN Q1HR PRN PO SBP > 180 or DBP > 100, MRX3; Start 06/28/19 at 11:00 Vancomycin HCl 1 gm/Sodium Chloride 250 ml @ 250 mls/hr Q12H IV Last administered on 06/29/19at 02:26; Start 06/28/19 at 15:00; Stop 06/29/19 at 14:49; Status DC Vancomycin HCl (Vanco Per Pharmacy) 1 each PRN DAILY PRN MC SEE COMMENTS Last administered on 06/29/19at 14:48; Start 06/28/19 at 11:00 Ceftriaxone Sodium (Rocephin) 1 gm Q24H IVP Last administered on 06/30/19at 12:08; Start 06/28/19 at 12:00 Influenza Virus Vaccine Quadrival (Afluria Quad 2019-20 (3yr Up) Syringe) 0.5 ml ONCE ONCE VAX IM Last administered on 06/28/19at 15:25; Start 06/28/19 at 15:00; Stop 06/28/19 at 15:01; Status DC Iohexol (Omnipaque 300 Mg/ml) 75 ml 1X ONCE IV ; Start 06/28/19 at 14:45; Stop 06/28/19 at 14:46; Status DC Info (CONTRAST GIVEN -- Rx MONITORING) 1 each PRN DAILY PRN MC SEE COMMENTS; Start 06/28/19 at 14:45; Stop 06/30/19 at 14:44 Lactobacillus Rhamnosus (Culturelle) 1 cap BID PO Last administered on 06/29/19at 21:11; Start 06/28/19 at 21:00 Vancomycin HCl (Vancomycin Trough Level) 1 each 1X ONCE MC ; Start 06/29/19 at 14:30; Stop 06/29/19 at 14:31; Status DC Multivitamins 10 ml/Thiamine HCl 100 mg/Folic Acid 1 mg/Sodium Chloride 1,011.2 ml @ 100 mls/ hr DAILY IV ; Start 06/29/19 at 09:00; Stop 07/03/19 at 19:07; Status UNV Multivitamins (Thera M Plus) 1 tab DAILY PO ; Start 07/03/19 at 09:00 Folic Acid (Folic Acid) 1 mg DAILY PO ; Start 07/03/19 at 09:00 Thiamine Mononitrate (Vitamin B-1) 100 mg DAILY PO ; Start 07/03/19 at 09:00 Thiamine HCl 100 mg DAILY IM ; Start 07/03/19 at 09:00; Stop 07/08/19 at 08:59; Status UNV Thiamine HCl 100 mg/Dextrose 51 ml @ 100 mls/hr DAILY IV ; Start 07/03/19 at 09:00; Stop 07/07/19 at 09:31; Status UNV Lorazepam (Ativan) 2 mg Q6H PO Last administered on 06/29/19at 09:00; Start 06/28/19 at 20:00; Stop 06/29/19 at 11:51; Status DC Chlordiazepoxide (Librium) 25 mg Q6H PO ; Start 06/28/19 at 19:30; Stop 06/30/19 at 01:31; Status UNV Chlordiazepoxide (Librium) 25 mg PRN Q6HRS PRN PO ANXIETY / AGITATION; Start 06/29/19 at 08:45 Insulin Human Lispro (HumaLOG) 0-9 UNITS TIDWMEALS SQ ; Start 06/29/19 at 12:00 Dextrose (Dextrose 50%-Water Syringe) 12.5 gm PRN Q15MIN PRN IV SEE COMMENTS; Start 06/29/19 at 08:45 Nicotine (Nicoderm Cq 21mg) 1 patch PRN DAILY PRN TD SMOKING CESSATION; Start 06/29/19 at 08:45 Haloperidol Lactate (Haldol Inj) 2.5 mg PRN Q4HRS PRN IVP Hallucinatns,Confusn,Delirium; Start 06/29/19 at 12:00 Morphine Sulfate (Morphine Sulfate) 1 mg PRN Q4HRS PRN IV MODERATE-SEVERE PAIN Last administered on 06/30/19at 09:27; Start 06/29/19 at 12:00 Vancomycin HCl 1 gm/Sodium Chloride 250 ml @ 250 mls/hr Q8H IV Last administered on 06/30/19at 06:41; Start 06/29/19 at 15:00 Vancomycin HCl (Vancomycin Trough Level) 1 each 1X ONCE MC ; Start 06/30/19 at 14:30; Stop 06/30/19 at 14:31 Active Scripts Active Reported No Known Medications Prior To Admisstion (Info) Each 1 Each Vitals/I & O Vital Sign - Last 24 Hours 06/29/19 06/29/19 06/29/19 06/29/19 15:00 15:28 15:58 19:00 Temp 98.1 100.1 98.1 100.1 Pulse 107 116 Resp 16 18 B/P (MAP) 141/82 (101) 168/92 (117) Pulse Ox 93 97 O2 Delivery Room Air Room Air Room Air Room Air 06/29/19 06/29/19 06/29/19 06/29/19 20:00 21:11 22:11 23:00 Temp 99.7 99.7 Pulse 107 Resp 18 20 18 B/P (MAP) 161/88 (112) Pulse Ox 97 97 96 O2 Delivery Room Air Room Air Room Air Room Air 06/30/19 06/30/19 06/30/19 06/30/19 03:00 03:43 04:43 07:00 Temp 98.3 97.9 98.3 97.9 Pulse 93 92 Resp 16 18 18 16 B/P (MAP) 149/88 (108) 132/89 (103) Pulse Ox 97 96 96 98 O2 Delivery Room Air Room Air Room Air Room Air 06/30/19 06/30/19 06/30/19 06/30/19 08:00 09:27 09:57 10:54 Temp 98.3 98.3 Pulse 89 Resp 20 18 16 B/P (MAP) 138/79 (98) Pulse Ox 98 97 97 O2 Delivery Room Air Room Air Room Air Room Air Intake and Output 06/29/19 06/29/19 06/30/19 14:59 22:59 06:59 Intake Total 1011 ml 250 ml Balance 1011 ml 250 ml JEANNIE RAJPUT MD Jun 30, 2019 12:33
[2019-06-30] MEDS ORDERED: PROPOFOL 20 ML IV ONE (13:42)
[2019-06-30] MEDS ORDERED: DEXAMETHASONE SOD PHOS 4 MG/ML VIAL ONE (13:42)
[2019-06-30] MEDS ORDERED: LIDOCAINE 2% PF 5 ML VIAL. ONE (13:42)
[2019-06-30] MEDS ORDERED: MIDAZOLAM HCL/PF 2 MG/2 ML VIAL. ONE (13:42)
[2019-06-30] MEDS ORDERED: ONDANSETRON PF 4 MG/2 ML VIAL. ONE (13:42)
--- NOTE | 2019-06-30 13:45 | NUR ---
Patient to surgery per bed with chart, 3pm dose of Vancomycin. Lab informed patient down to surgery holding (has 1430 Vancomycin trough ordered-surgery aware of trough to be done.)
[2019-06-30] MEDS ORDERED: fentaNYL PF VIAL 100 MCG/2 ML VIAL ONE (14:00)
[2019-06-30] MEDS ORDERED: IV RINGERS,LACTATED 1000ML 1,000 ML IV SCH (14:10)
[2019-06-30] MEDS: fentaNYL PF VIAL 100 MCG/2 ML VIAL IV PRN ×3 (14:14→16:26)
[2019-06-30] MEDS ORDERED: fentaNYL PF VIAL 100 MCG/2 ML VIAL IV PRN (14:15)
[2019-06-30] MEDS ORDERED: MORPHINE SULFATE 2 MG/ML VIAL. IV PRN (14:15)
[2019-06-30] MEDS ORDERED: PROCHLORPERAZINE 10 MG/2 ML VIAL. IV PRN (14:15)
[2019-06-30] MEDS ORDERED: HYDROmorphone 2 MG/ML VIAL IV PRN (14:15)
[2019-06-30 14:24] LABS: VANC TR 12.3 mcg/mL (10.0-20.0)
[2019-06-30] MEDS ORDERED: VANCOMYCIN 1.25 GM in IV NORMAL SALINE 250ML 250 ML IV SCH (15:00)
[2019-06-30] MEDS: VANCOMYCIN PER PHARMACY MC PRN (15:27)
--- NOTE | 2019-06-30 15:38 | NUR ---
Pharmacy Vancomycin Dosing Note S:Consulted to monitor and dose vancomycin started 06/28/19. O:YOSSI PANG is a 48 year old F with Cellulitis POSS SEPTIC ARTHRITIS . Height: 5 feet, 3 inches Weight: 58.437923 kg [place] Body Weight: 52.40 Adjusted Body Weight: 54.64 Dosing Weight: Actual Other Antibiotics: CEFTRIAXONE LABS: Last BUN: 6 Last Creatinine: 0.6 Creatinine Clearance: 95 mL/min Last WBC: 10.8 Last Procalcitonin: Tmax (past 24 hours): 100.1 Microbiology: BLOOD: NGTD I/O: 1261/3 voids Drug Levels: Last Trough level: 12.3 on 06/30/19 at 1355 Last dose given 06/30/19 at 0641 Vancomycin Dosing: Loading Dose: x1 Dosing Weight: Actual Target Trough: 15-20 A: Based on trough of 13.2: P: 1. increase Vancomycin to 1250 mg IV q8h. 2. Follow up Trough levels as needed. 3. Pharmacy will continue to monitor, follow and adjust therapy as needed. Tavo Tran [facility], 06/30/19 [id number]
--- NOTE | 2019-06-30 15:44 | PDOC4 ---
Operative Note Operative Note Date of Surgery: 06/30/2019 Preoperative diagnosis: Acromioclavicular joint pain and presumed infection based on CT scan Postoperative diagnosis: No sign of septic joint either acromioclavicular or glenohumeral joint Operative procedure: Irrigation debridement of left acromioclavicular joint and aspiration glenohumeral joint Surgeon: Peter Anesthesia: Gen. Estimated blood loss: 10 mL Complications: None Specimens: Culture swab of left acromioclavicular joint space, fluid aspirate from left glenohumeral joint Operative indications: Please see my dictated orthopedic consult for detailed operative indications and note that patient presented with severe left shoulder pain a high white count and obtundation which later cleared. Pain localized more to the acromioclavicular joint and CT scan showed some surrounding stranding and suspicion for a septic acromioclavicular joint which did correlate with the site of her severe shoulder pain. I went over with her the operative rationale of opening up the joint taking cultures and washing it out to make antibiotics more effective if it is infected as assumed. All her questions were answered she wishes to proceed with surgical evaluation and treatment Operative text: Patient was identified procedure verified patient placed in the supine position on the operating table after adequate amounts of general anesthesia were administered she was placed semi-decubitus with a slight bump underneath the left shoulder which was prepped and draped in standard sterile fashion. After timeout was performed patient procedure identified and verified and incision was made longitudinally in line with the clavicle at the level of the acromioclavicular joint and dissection carried out down to the acromioclavicular joint which was opened with a longitudinal rent in its capsule. Unexpectedly, there was no evidence of any return of purulent drainage the area was cultured with a culture swab and to obtain further diagnostic information the glenohumeral joint was thoroughly aspirated from an anterior approach and about 3 mL of clear normal-appearing joint fluid were obtained and sent for cell count culture and Gram stain. Thorough irrigation was carried out with normal saline solution and pulse lavage leading points controlled by electrocautery and skin was closed with nylon suture loosely in a vertical cari ress fashion sterile dressings were applied patient was returned to recovery room in stable condition having tolerated procedure well ZAKIA KAUR MD Jun 30, 2019 15:44
[2019-06-30 18:55] LABS: BF CLARITY HAZY; BF COLOR STRAW; BF MON % 41 %; BF PMN % 59 %; BF RBC COUNT 4000 /cmm (Not Established); BF SOURCE SYNOVIAL; BF WBC COUNT 240 /cmm (Not Established)
[2019-06-30 19:00] VITALS: BP 155/84
[2019-06-30] MEDS: INSULIN GLARGINE SYRINGE. SQ SCH (21:53)
[2019-06-30 23:00] VITALS: BP 128/78
[2019-06-30] MEDS: VANCOMYCIN 1.25 GM in IV NORMAL SALINE 250ML 250 ML IV SCH (23:30)
[2019-07-01] MEDS: MORPHINE SULFATE 2 MG/ML VIAL. IV PRN ×4 (01:55→23:50)
[2019-07-01] MEDS: HYDROcodone/APAP 5/325MG 1 TAB TABLET PO PRN ×3 (02:28→21:07)
[2019-07-01 03:00] VITALS: BP 125/77
[2019-07-01 07:00] VITALS: BP 121/75
[2019-07-01] MEDS: VANCOMYCIN 1.25 GM in IV NORMAL SALINE 250ML 250 ML IV SCH ×3 (07:03→23:49)
[2019-07-01] MEDS ORDERED: glyBURIDE 5 MG TABLET PO SCH (08:00)
[2019-07-01] MEDS ORDERED: INSULIN GLARGINE SYRINGE. SQ SCH (08:00)
[2019-07-01] MEDS: LACTOBACILLUS RHAMNOSUS GG 1 CAPSULE. PO SCH ×2 (08:19→21:07)
[2019-07-01] MEDS: MULTIVIT INFUSN,ADULT 4,VIT K 10 ML, THIAMINE INJ 100 MG, FOLIC ACID INJ 1 MG in IV NOR... IV SCH (08:20)
[2019-07-01] MEDS: ENOXAPARIN 40 MG/0.4 ML SYRINGE. SQ SCH (08:20)
[2019-07-01] MEDS: INSULIN LISPRO 300 UNITS/3 ML VIAL. SQ SCH ×4 (08:21→16:57)
[2019-07-01 08:38] LABS: BASO % 0 % (0-3); EOS % 0 % (0-3); HEMATOCRIT 31.2 % (36.0-47.0); HEMOGLOBIN 10.4 g/dL (12.0-15.5); LYMPH # 1.8 x10^3/uL (1.0-4.8); LYMPH % 17 % (24-48); MEAN CORPUSCULAR HEMOGLOBIN 30 pg (25-35); MEAN CORPUSCULAR HGB CONC 33 g/dL (31-37); MEAN CORPUSCULAR VOLUME 91 fL (79-100); MONO # 0.5 x10^3/uL (0.0-1.1); MONO % 5 % (0-9); NEUT # 8.1 x10^3/uL (1.8-7.7); NEUT % 77 % (31-73); PLATELET COUNT 458 x10^3/uL (140-400); RED BLOOD COUNT 3.45 x10^6/uL (3.50-5.40); RED CELL DISTRIBUTION WIDTH 14.5 % (11.5-14.5); WHITE BLOOD COUNT 10.4 x10^3/uL (4.0-11.0)
[2019-07-01 08:45] LABS: CALCIUM 7.2 mg/dL (8.5-10.1); CREATININE 0.7 mg/dL (0.6-1.0); GFR 89.3; POTASSIUM 3.6 mmol/L (3.5-5.1)
--- NOTE | 2019-07-01 09:18 | NUR ---
Recommend OT eval and treat to address ADLs and HEP. Pt is indep with mobility and no PT indicated. Addendum: 07/01/19 at 0919 by ALEISHA ROSENBAUM PT Amended: Links added.
--- NOTE | 2019-07-01 09:28 | PDOC ---
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 (now eating) hgba1c 12 ESR 95 Self pay Alcoholic so i cant do metformin She seems interested in getting sober PLAn: LAbs today Iv abx per ID Inc lantus to 15 qhs from 8 Start glyburide 5 BID KEep SSI high dose CAnt do metformin bec of alcoholism Ff up intraop cxs Dw her with RN at bedside AAA referral Vitals Vitals Vital Signs Date Time Temp Pulse Resp B/P (MAP) Pulse Ox O2 Delivery O2 Flow Rate FiO2 07/01/19 07:00 97.8 94 17 121/75 (90) 96 Room Air 97.8 06/30/19 16:00 10.0 Physical Exam Physical Exam GENERAL: Alert, awake, goes back to sleep, answers a few questions, appears comfortable except for when movement is made of the left shoulder from pain. HEENT: Normocephalic, atraumatic, anicteric. No thrush. Dentition fair. NECK: Supple. LUNGS: Clear bilaterally. HEART: S1, S2. ABDOMEN: Soft, nontender, nondistended. EXTREMITIES: No edema, no cyanosis. Left shoulder swelling, redness on the superior aspect, painful to touch, ? abscess. There is no fluctuance. Extensive pain around the shoulder with passive range of motion. DERMATOLOGIC: Warm, dry. No generalized rash. CENTRAL NERVOUS SYSTEM: Moves all 4 extremities. Grossly nonfocal. PSYCHIATRIC: Cooperative. General: Alert, Oriented X3, Cooperative, moderate distress (Patient unable to stay awake for more than a few minutes for exam) Heart: Regular rate, Normal S1, Normal S2 Lungs: Clear Abdomen: Normal bowel sounds, Soft, No hepatosplenomegaly, No masses, Other (RUQ tender) Extremities: No clubbing, No cyanosis, Normal pulses, Other (Left shoulder tender, swollen, limited ROM, passive with extreme pain) Skin: No breakdown, No significant lesion, Other (Left shoulder red) Labs LABS Laboratory Tests Test 06/30/19 11:32 06/30/19 13:55 06/30/19 15:17 06/30/19 16:11 Glucose (Fingerstick) 187 mg/dL (70-99) 150 mg/dL (70-99) Vancomycin Level Trough 12.3 mcg/mL (10.0-20.0) Vancomycin Last Dose Date 06/30/19 Vancomycin Last Dose Time 0700 Body Fluid Source Synovial Body Fluid Color Straw Body Fluid Clarity Hazy Body Fluid Nucleated Cells 240 /cmm (Not Established) Body Fluid Mononuclear WBCs (%) 41 % Body Fluid Polymorphonuclear Cells 59 % Body Fluid Total RBCs Counted 4000 /cmm (Not Established) Test 06/30/19 21:20 07/01/19 07:37 07/01/19 08:20 Glucose (Fingerstick) 314 mg/dL (70-99) 305 mg/dL (70-99) White Blood Count 10.4 x10^3/uL (4.0-11.0) Red Blood Count 3.45 x10^6/uL (3.50-5.40) Hemoglobin 10.4 g/dL (12.0-15.5) Hematocrit 31.2 % (36.0-47.0) Mean Corpuscular Volume 91 fL (79-100) Mean Corpuscular Hemoglobin 30 pg (25-35) Mean Corpuscular Hemoglobin Concent 33 g/dL (31-37) Red Cell Distribution Width 14.5 % (11.5-14.5) Platelet Count 458 x10^3/uL (140-400) Neutrophils (%) (Auto) 77 % (31-73) Lymphocytes (%) (Auto) 17 % (24-48) Monocytes (%) (Auto) 5 % (0-9) Eosinophils (%) (Auto) 0 % (0-3) Basophils (%) (Auto) 0 % (0-3) Neutrophils # (Auto) 8.1 x10^3/uL (1.8-7.7) Lymphocytes # (Auto) 1.8 x10^3/uL (1.0-4.8) Monocytes # (Auto) 0.5 x10^3/uL (0.0-1.1) Eosinophils # (Auto) 0.0 x10^3/uL (0.0-0.7) Basophils # (Auto) 0.0 x10^3/uL (0.0-0.2) Sodium Level 139 mmol/L (136-145) Potassium Level 3.6 mmol/L (3.5-5.1) Chloride Level 102 mmol/L (98-107) Carbon Dioxide Level 23 mmol/L (21-32) Anion Gap 14 (6-14) Blood Urea Nitrogen 13 mg/dL (7-20) Creatinine 0.7 mg/dL (0.6-1.0) Estimated GFR (Cockcroft-Gault) 89.3 Glucose Level 319 mg/dL (70-99) Calcium Level 7.2 mg/dL (8.5-10.1) Review of Systems Review of Systems some left shoulder pain that is getting better, rest 14 pt neg Assessment and Plan Assessmemt and Plan Problems Medical Problems: (1) Alcohol abuse Status: Acute (2) Anemia Status: Acute (3) Cellulitis of left shoulder Status: Acute (4) Hypokalemia Status: Acute (5) Methamphetamine abuse Status: Acute (6) Sepsis Status: Acute (7) Uncontrolled diabetes mellitus Status: Acute Comment Review of Relevant I have reviewed the following items chari (where applicable) has been applied. Labs Laboratory Tests Test 06/29/19 10:01 06/29/19 11:43 06/29/19 14:20 06/29/19 20:58 White Blood Count 10.8 x10^3/uL (4.0-11.0) Red Blood Count 3.36 x10^6/uL (3.50-5.40) Hemoglobin 10.0 g/dL (12.0-15.5) Hematocrit 30.2 % (36.0-47.0) Mean Corpuscular Volume 90 fL (79-100) Mean Corpuscular Hemoglobin 30 pg (25-35) Mean Corpuscular Hemoglobin Concent 33 g/dL (31-37) Red Cell Distribution Width 14.8 % (11.5-14.5) Platelet Count 316 x10^3/uL (140-400) Neutrophils (%) (Auto) 76 % (31-73) Lymphocytes (%) (Auto) 15 % (24-48) Monocytes (%) (Auto) 7 % (0-9) Eosinophils (%) (Auto) 1 % (0-3) Basophils (%) (Auto) 1 % (0-3) Neutrophils # (Auto) 8.2 x10^3/uL (1.8-7.7) Lymphocytes # (Auto) 1.6 x10^3/uL (1.0-4.8) Monocytes # (Auto) 0.8 x10^3/uL (0.0-1.1) Eosinophils # (Auto) 0.1 x10^3/uL (0.0-0.7) Basophils # (Auto) 0.1 x10^3/uL (0.0-0.2) Erythrocyte Sedimentation Rate 95 (0-25) Sodium Level 138 mmol/L (136-145) Potassium Level 3.1 mmol/L (3.5-5.1) Chloride Level 102 mmol/L (98-107) Carbon Dioxide Level 24 mmol/L (21-32) Anion Gap 12 (6-14) Blood Urea Nitrogen 6 mg/dL (7-20) Creatinine 0.6 mg/dL (0.6-1.0) 0.6 mg/dL (0.6-1.0) Estimated GFR (Cockcroft-Gault) 106.7 106.7 Glucose Level 194 mg/dL (70-99) Hemoglobin A1c 12.3 % (4.8-5.6) Calcium Level 6.8 mg/dL (8.5-10.1) Hepatitis A IgM Antibody Nonreactive (Nonreactive) Hepatitis B Surface Antigen Nonreactive (Nonreactive) Hepatitis B Core IgM Antibody Nonreactive (Nonreactive) Hepatitis C IgG Antibody Nonreactive (Nonreactive) HIV (1&2) Antibody Screen Nonreactive (Nonreactive) Glucose (Fingerstick) 166 mg/dL (70-99) 269 mg/dL (70-99) Vancomycin Level Trough 6.6 mcg/mL (10.0-20.0) Vancomycin Last Dose Date 06/29/19 Vancomycin Last Dose Time 0300 Test 06/30/19 07:34 06/30/19 11:32 06/30/19 13:55 06/30/19 15:17 Glucose (Fingerstick) 174 mg/dL (70-99) 187 mg/dL (70-99) Vancomycin Level Trough 12.3 mcg/mL (10.0-20.0) Vancomycin Last Dose Date 06/30/19 Vancomycin Last Dose Time 0700 Body Fluid Source Synovial Body Fluid Color Straw Body Fluid Clarity Hazy Body Fluid Nucleated Cells 240 /cmm (Not Established) Body Fluid Mononuclear WBCs (%) 41 % Body Fluid Polymorphonuclear Cells 59 % Body Fluid Total RBCs Counted 4000 /cmm (Not Established) Test 06/30/19 16:11 06/30/19 21:20 07/01/19 07:37 07/01/19 08:20 Glucose (Fingerstick) 150 mg/dL (70-99) 314 mg/dL (70-99) 305 mg/dL (70-99) White Blood Count 10.4 x10^3/uL (4.0-11.0) Red Blood Count 3.45 x10^6/uL (3.50-5.40) Hemoglobin 10.4 g/dL (12.0-15.5) Hematocrit 31.2 % (36.0-47.0) Mean Corpuscular Volume 91 fL (79-100) Mean Corpuscular Hemoglobin 30 pg (25-35) Mean Corpuscular Hemoglobin Concent 33 g/dL (31-37) Red Cell Distribution Width 14.5 % (11.5-14.5) Platelet Count 458 x10^3/uL (140-400) Neutrophils (%) (Auto) 77 % (31-73) Lymphocytes (%) (Auto) 17 % (24-48) Monocytes (%) (Auto) 5 % (0-9) Eosinophils (%) (Auto) 0 % (0-3) Basophils (%) (Auto) 0 % (0-3) Neutrophils # (Auto) 8.1 x10^3/uL (1.8-7.7) Lymphocytes # (Auto) 1.8 x10^3/uL (1.0-4.8) Monocytes # (Auto) 0.5 x10^3/uL (0.0-1.1) Eosinophils # (Auto) 0.0 x10^3/uL (0.0-0.7) Basophils # (Auto) 0.0 x10^3/uL (0.0-0.2) Sodium Level 139 mmol/L (136-145) Potassium Level 3.6 mmol/L (3.5-5.1) Chloride Level 102 mmol/L (98-107) Carbon Dioxide Level 23 mmol/L (21-32) Anion Gap 14 (6-14) Blood Urea Nitrogen 13 mg/dL (7-20) Creatinine 0.7 mg/dL (0.6-1.0) Estimated GFR (Cockcroft-Gault) 89.3 Glucose Level 319 mg/dL (70-99) Calcium Level 7.2 mg/dL (8.5-10.1) Laboratory Tests Test 06/30/19 11:32 06/30/19 13:55 06/30/19 15:17 06/30/19 16:11 Glucose (Fingerstick) 187 mg/dL (70-99) 150 mg/dL (70-99) Vancomycin Level Trough 12.3 mcg/mL (10.0-20.0) Vancomycin Last Dose Date 06/30/19 Vancomycin Last Dose Time 0700 Body Fluid Source Synovial Body Fluid Color Straw Body Fluid Clarity Hazy Body Fluid Nucleated Cells 240 /cmm (Not Established) Body Fluid Mononuclear WBCs (%) 41 % Body Fluid Polymorphonuclear Cells 59 % Body Fluid Total RBCs Counted 4000 /cmm (Not Established) Test 06/30/19 21:20 07/01/19 07:37 07/01/19 08:20 Glucose (Fingerstick) 314 mg/dL (70-99) 305 mg/dL (70-99) White Blood Count 10.4 x10^3/uL (4.0-11.0) Red Blood Count 3.45 x10^6/uL (3.50-5.40) Hemoglobin 10.4 g/dL (12.0-15.5) Hematocrit 31.2 % (36.0-47.0) Mean Corpuscular Volume 91 fL (79-100) Mean Corpuscular Hemoglobin 30 pg (25-35) Mean Corpuscular Hemoglobin Concent 33 g/dL (31-37) Red Cell Distribution Width 14.5 % (11.5-14.5) Platelet Count 458 x10^3/uL (140-400) Neutrophils (%) (Auto) 77 % (31-73) Lymphocytes (%) (Auto) 17 % (24-48) Monocytes (%) (Auto) 5 % (0-9) Eosinophils (%) (Auto) 0 % (0-3) Basophils (%) (Auto) 0 % (0-3) Neutrophils # (Auto) 8.1 x10^3/uL (1.8-7.7) Lymphocytes # (Auto) 1.8 x10^3/uL (1.0-4.8) Monocytes # (Auto) 0.5 x10^3/uL (0.0-1.1) Eosinophils # (Auto) 0.0 x10^3/uL (0.0-0.7) Basophils # (Auto) 0.0 x10^3/uL (0.0-0.2) Sodium Level 139 mmol/L (136-145) Potassium Level 3.6 mmol/L (3.5-5.1) Chloride Level 102 mmol/L (98-107) Carbon Dioxide Level 23 mmol/L (21-32) Anion Gap 14 (6-14) Blood Urea Nitrogen 13 mg/dL (7-20) Creatinine 0.7 mg/dL (0.6-1.0) Estimated GFR (Cockcroft-Gault) 89.3 Glucose Level 319 mg/dL (70-99) Calcium Level 7.2 mg/dL (8.5-10.1) Microbiology 06/28/19 Blood Culture - Preliminary, Resulted NO GROWTH AFTER 2 DAYS Medications Current Medications Sodium Chloride 1,000 ml @ 1,000 mls/hr 1X ONCE IV Last administered on 06/28/19at 03:42; Start 06/28/19 at 02:30; Stop 06/28/19 at 03:29; Status DC Sodium Chloride 1,000 ml @ 1,000 mls/hr 1X ONCE IV Last administered on 06/28/19at 05:44; Start 06/28/19 at 02:30; Stop 06/28/19 at 03:29; Status DC Cefazolin Sodium/ Dextrose 50 ml @ 100 mls/hr 1X ONCE IV Last administered on 06/28/19at 02:53; Start 06/28/19 at 02:30; Stop 06/28/19 at 02:59; Status DC Vancomycin HCl 250 ml @ 250 mls/hr 1X ONCE IV Last administered on 06/28/19at 02:54; Start 06/28/19 at 02:30; Stop 06/28/19 at 03:29; Status DC Fentanyl Citrate (Fentanyl 2ml Vial) 50 mcg 1X ONCE IVP Last administered on 06/28/19at 02:39; Start 06/28/19 at 02:30; Stop 06/28/19 at 02:31; Status DC Ibuprofen (Motrin) 600 mg 1X ONCE PO Last administered on 06/28/19at 04:34; Start 06/28/19 at 04:15; Stop 06/28/19 at 04:18; Status DC Potassium Chloride (Klor-Con) 40 meq 1X ONCE PO Last administered on 06/28/19at 10:22; Start 06/28/19 at 06:30; Stop 06/28/19 at 06:33; Status DC Sodium Chloride 1,000 ml @ 150 mls/hr Q6H40M IV Last administered on 06/29/19at 01:30; Start 06/28/19 at 06:30; Stop 06/29/19 at 06:29; Status DC Dextrose (Dextrose 50%-Water Syringe) 12.5 gm PRN Q15MIN PRN IV SEE COMMENTS; Start 06/28/19 at 06:30; Stop 06/29/19 at 08:47; Status DC Insulin Glargine (Lantus Syringe) 8 unit QHS SQ Last administered on 06/30/19at 21:53; Start 06/28/19 at 21:00; Stop 07/01/19 at 07:37; Status DC Insulin Human Lispro (HumaLOG) 0-7 UNITS TIDACHC SQ Last administered on 06/28/19at 21:38; Start 06/28/19 at 11:30; Stop 06/29/19 at 08:42; Status DC Dextrose (Dextrose 50%-Water Syringe) 12.5 gm PRN Q15MIN PRN IV SEE COMMENTS; Start 06/28/19 at 10:30; Status UNV Acetaminophen/ Hydrocodone Bitart (Lortab 5/325) 1 tab PRN Q6HRS PRN PO PAIN Last administered on 07/01/19at 02:28; Start 06/28/19 at 10:30 Morphine Sulfate (Morphine Sulfate) 2 mg PRN Q4HRS PRN IV MODERATE-SEVERE PAIN Last administered on 06/29/19at 02:24; Start 06/28/19 at 10:30; Stop 06/29/19 at 11:51; Status DC Enoxaparin Sodium (Lovenox 40mg Syringe) 40 mg DAILY SQ Last administered on 07/01/19at 08:20; Start 06/28/19 at 12:00 Ketorolac Tromethamine (Toradol 30mg Vial) 30 mg PRN Q6HRS PRN IVP MILD PAIN 1-3 Last administered on 06/30/19at 05:35; Start 06/28/19 at 10:30; Stop 07/03/19 at 10:29 Multivitamins 10 ml/Thiamine HCl 100 mg/Folic Acid 1 mg/Sodium Chloride 1,011.2 ml @ 100 mls/ hr DAILY IV Last administered on 07/01/19at 08:20; Start 06/28/19 at 12:00; Stop 07/02/19 at 19:07 Lorazepam (Ativan) 2 mg PRN Q1HR PRN PO For CIWA 8-14; Start 06/28/19 at 11:00; Stop 06/29/19 at 11:51; Status DC Lorazepam (Ativan Inj) 1 mg PRN Q1HR PRN IV For CIWA 8-14; Start 06/28/19 at 11:00; Stop 06/29/19 at 11:51; Status DC Haloperidol Lactate (Haldol Inj) 5 mg PRN Q4HRS PRN IVP Hallucinatns,Confusn,Delirium; Start 06/28/19 at 11:00; Stop 06/29/19 at 11:51; Status DC Diphenhydramine HCl (Benadryl) 25 mg PRN Q15MIN PRN IVP EPS symptoms 2'Haldol admin; Start 06/28/19 at 11:00 Clonidine HCl (Catapres) 0.1 mg PRN Q1HR PRN PO SBP > 180 or DBP > 100, MRX3; Start 06/28/19 at 11:00 Vancomycin HCl 1 gm/Sodium Chloride 250 ml @ 250 mls/hr Q12H IV Last administered on 06/29/19at 02:26; Start 06/28/19 at 15:00; Stop 06/29/19 at 14:49; Status DC Vancomycin HCl (Vanco Per Pharmacy) 1 each PRN DAILY PRN MC SEE COMMENTS Last administered on 06/30/19at 15:27; Start 06/28/19 at 11:00 Ceftriaxone Sodium (Rocephin) 1 gm Q24H IVP Last administered on 06/30/19at 12:08; Start 06/28/19 at 12:00 Influenza Virus Vaccine Quadrival (Afluria Quad 2019-20 (3yr Up) Syringe) 0.5 ml ONCE ONCE VAX IM Last administered on 06/28/19at 15:25; Start 06/28/19 at 15:00; Stop 06/28/19 at 15:01; Status DC Iohexol (Omnipaque 300 Mg/ml) 75 ml 1X ONCE IV ; Start 06/28/19 at 14:45; Stop 06/28/19 at 14:46; Status DC Info (CONTRAST GIVEN -- Rx MONITORING) 1 each PRN DAILY PRN MC SEE COMMENTS; Start 06/28/19 at 14:45; Stop 06/30/19 at 14:44; Status DC Lactobacillus Rhamnosus (Culturelle) 1 cap BID PO Last administered on 07/01/19at 08:19; Start 06/28/19 at 21:00 Vancomycin HCl (Vancomycin Trough Level) 1 each 1X ONCE MC ; Start 06/29/19 at 14:30; Stop 06/29/19 at 14:31; Status DC Multivitamins 10 ml/Thiamine HCl 100 mg/Folic Acid 1 mg/Sodium Chloride 1,011.2 ml @ 100 mls/ hr DAILY IV ; Start 06/29/19 at 09:00; Stop 07/03/19 at 19:07; Status UNV Multivitamins (Thera M Plus) 1 tab DAILY PO ; Start 07/03/19 at 09:00 Folic Acid (Folic Acid) 1 mg DAILY PO ; Start 07/03/19 at 09:00 Thiamine Mononitrate (Vitamin B-1) 100 mg DAILY PO ; Start 07/03/19 at 09:00 Thiamine HCl 100 mg DAILY IM ; Start 07/03/19 at 09:00; Stop 07/08/19 at 08:59; Status UNV Thiamine HCl 100 mg/Dextrose 51 ml @ 100 mls/hr DAILY IV ; Start 07/03/19 at 09:00; Stop 07/07/19 at 09:31; Status UNV Lorazepam (Ativan) 2 mg Q6H PO Last administered on 06/29/19at 09:00; Start 06/28/19 at 20:00; Stop 06/29/19 at 11:51; Status DC Chlordiazepoxide (Librium) 25 mg Q6H PO ; Start 06/28/19 at 19:30; Stop 06/30/19 at 01:31; Status UNV Chlordiazepoxide (Librium) 25 mg PRN Q6HRS PRN PO ANXIETY / AGITATION; Start 06/29/19 at 08:45 Insulin Human Lispro (HumaLOG) 0-9 UNITS TIDWMEALS SQ Last administered on 07/01/19at 08:21; Start 06/29/19 at 12:00 Dextrose (Dextrose 50%-Water Syringe) 12.5 gm PRN Q15MIN PRN IV SEE COMMENTS; Start 06/29/19 at 08:45 Nicotine (Nicoderm Cq 21mg) 1 patch PRN DAILY PRN TD SMOKING CESSATION; Start 06/29/19 at 08:45 Haloperidol Lactate (Haldol Inj) 2.5 mg PRN Q4HRS PRN IVP Hallucinatns, Confusn,Delirium; Start 06/29/19 at 12:00 Morphine Sulfate (Morphine Sulfate) 1 mg PRN Q4HRS PRN IV MODERATE-SEVERE PAIN Last administered on 07/01/19at 08:40; Start 06/29/19 at 12:00 Vancomycin HCl 1 gm/Sodium Chloride 250 ml @ 250 mls/hr Q8H IV Last administered on 06/30/19at 06:41; Start 06/29/19 at 15:00; Stop 06/30/19 at 15:28; Status DC Vancomycin HCl (Vancomycin Trough Level) 1 each 1X ONCE MC ; Start 06/30/19 at 14:30; Stop 06/30/19 at 14:31; Status DC Propofol 20 ml @ As Directed STK-MED ONCE IV ; Start 06/30/19 at 13:42; Stop 06/30/19 at 13:42; Status DC Dexamethasone Sodium Phosphate (Decadron) 4 mg STK-MED ONCE .ROUTE ; Start 06/30/19 at 13:42; Stop 06/30/19 at 13:42; Status DC Lidocaine HCl (Lidocaine Pf 2% Vial) 5 ml STK-MED ONCE .ROUTE ; Start 06/30/19 at 13:42; Stop 06/30/19 at 13:42; Status DC Ondansetron HCl (Zofran) 4 mg STK-MED ONCE .ROUTE ; Start 06/30/19 at 13:42; Stop 06/30/19 at 13:42; Status DC Midazolam HCl (Versed) 2 mg STK-MED ONCE .ROUTE ; Start 06/30/19 at 13:42; Stop 06/30/19 at 13:42; Status DC Fentanyl Citrate (Fentanyl 2ml Vial) 100 mcg STK-MED ONCE .ROUTE ; Start 06/30/19 at 14:00; Stop 06/30/19 at 14:00; Status DC Fentanyl Citrate (Fentanyl 2ml Vial) 25 mcg PRN Q5MIN PRN IV MILD PAIN 1-3; Start 06/30/19 at 14:15; Stop 06/30/19 at 20:37; Status DC Fentanyl Citrate (Fentanyl 2ml Vial) 50 mcg PRN Q5MIN PRN IV MODERATE TO SEVERE PAIN Last administered on 06/30/19at 16:26; Start 06/30/19 at 14:15; Stop 06/30/19 at 20:37; Status DC Morphine Sulfate (Morphine Sulfate) 1 mg PRN Q10MIN PRN IV SEVERE PAIN 7-10; Start 06/30/19 at 14:15; Stop 06/30/19 at 20:37; Status DC Ringer's Solution 1,000 ml @ 30 mls/hr Q24H IV Last administered on 06/30/19at 14:10; Start 06/30/19 at 14:10; Stop 06/30/19 at 20:37; Status DC Hydromorphone HCl (Dilaudid) 0.5 mg PRN Q10MIN PRN IV SEV PAIN, Second choice; Start 06/30/19 at 14:15; Stop 06/30/19 at 20:37; Status DC Prochlorperazine Edisylate (Compazine) 5 mg PACU PRN PRN IV NAUSEA, MRX1; Start 06/30/19 at 14:15; Stop 06/30/19 at 20:37; Status DC Vancomycin HCl 1.25 gm/Sodium Chloride 250 ml @ 167 mls/hr Q8H IV ; Start 06/30/19 at 15:00; Status Cancel Vancomycin HCl 1.25 gm/Sodium Chloride 250 ml @ 167 mls/hr Q8H IV Last administered on 07/01/19at 07:03; Start 06/30/19 at 23:00 Insulin Glargine (Lantus Syringe) 15 unit DAILY08 SQ Last administered on 07/01/19at 08:22; Start 07/01/19 at 08:00 Glyburide (Diabeta) 5 mg BIDWMEALS PO Last administered on 07/01/19at 08:19; Start 07/01/19 at 08:00 Active Scripts Active Reported No Known Medications Prior To Admisstion (Info) Each 1 Each Vitals/I & O Vital Sign - Last 24 Hours 06/30/19 06/30/19 06/30/19 06/30/19 09:27 09:57 10:54 14:03 Temp 98.3 98.3 98.3 98.3 Pulse 89 96 Resp 20 18 16 12 B/P (MAP) 138/79 (98) 161/93 Pulse Ox 98 97 97 97 O2 Delivery Room Air Room Air Room Air Room Air 06/30/19 06/30/19 06/30/19 06/30/19 14:14 15:38 15:38 15:50 Temp 98.6 98.6 Pulse 96 94 Resp 15 18 18 B/P (MAP) 131/96 161/92 Pulse Ox 97 100 100 O2 Delivery Room Air Simple Mask Mask Simple Mask O2 Flow Rate 10 10 10 06/30/19 06/30/19 06/30/19 06/30/19 16:00 16:05 16:20 16:26 Pulse 95 98 Resp 18 18 16 16 B/P (MAP) 147/95 146/72 Pulse Ox 100 100 96 96 O2 Delivery Simple Mask Room Air Room Air Room Air O2 Flow Rate 10.0 06/30/19 06/30/19 06/30/19 06/30/19 16:30 16:35 19:00 20:00 Temp 98.8 98.1 98.8 98.1 Pulse 96 99 Resp 16 18 B/P (MAP) 147/74 155/84 (107) Pulse Ox 96 96 O2 Delivery Room Air Room Air Room Air Room Air 06/30/19 06/30/19 06/30/19 06/30/19 20:20 21:20 21:54 22:30 O2 Delivery Room Air Room Air Room Air Room Air 06/30/19 07/01/19 07/01/19 07/01/19 23:00 01:55 02:28 02:28 Temp 97.9 97.9 Pulse 96 Resp 18 B/P (MAP) 128/78 (95) Pulse Ox 96 O2 Delivery Room Air Room Air Room Air Room Air 07/01/19 07/01/19 07/01/19 03:00 03:30 07:00 Temp 97.3 97.8 97.3 97.8 Pulse 92 94 Resp 18 17 B/P (MAP) 125/77 (93) 121/75 (90) Pulse Ox 97 96 O2 Delivery Room Air Room Air Room Air Intake and Output 06/30/19 06/30/19 07/01/19 15:00 23:00 07:00 Intake Total 250 ml 400 ml Output Total 250 ml 5 ml Balance 0 ml 395 ml JEANNIE RAJPUT MD Jul 01, 2019 09:28
--- NOTE | 2019-07-01 09:41 | PDOC ---
Infectious Disease Note Subjective: Subjective Pt says feels ok Lt shoulder pain is under control no f/c/n/v/d ROS: ROS Negative otherwise. Vital Signs: Vital Signs Vital Signs Date Time Temp Pulse Resp B/P (MAP) Pulse Ox O2 Delivery O2 Flow Rate FiO2 07/01/19 07:00 97.8 94 17 121/75 (90) 96 Room Air 97.8 06/30/19 16:00 10.0 Physical Exam: PHYSICAL EXAM GENERAL: Alert, awake x3 appears comfortable HEENT: Normocephalic, atraumatic, anicteric. No thrush. Dentition fair. NECK: Supple. LUNGS: Clear bilaterally. HEART: S1, S2. ABDOMEN: Soft, nontender, nondistended. EXTREMITIES: No edema, no cyanosis. Left shoulder dressing in place,dry intact DERMATOLOGIC: Warm, dry. No generalized rash. CENTRAL NERVOUS SYSTEM: Moves all 4 extremities. Grossly nonfocal. PSYCHIATRIC: Cooperative. Medications: Inpatient Meds: Current Medications Medications (Trade) Dose Ordered Sig/[facility] Start Time Stop Time Status Last Admin Dose Admin Acetaminophen/ Hydrocodone Bitart (Lortab 5/325) 1 tab PRN Q6HRS PRN 06/28/19 10:30 07/01/19 02:28 1 TAB Cefazolin Sodium/ Dextrose 50 ml @ 100 mls/hr 1X ONCE 06/28/19 02:30 06/28/19 02:59 DC 06/28/19 02:53 100 MLS/HR Ceftriaxone Sodium (Rocephin) 1 gm Q24H 06/28/19 12:00 06/30/19 12:08 1 GM Chlordiazepoxide (Librium) 25 mg PRN Q6HRS PRN 06/29/19 08:45 Clonidine HCl (Catapres) 0.1 mg PRN Q1HR PRN 06/28/19 11:00 Dexamethasone Sodium Phosphate (Decadron) 4 mg STK-MED ONCE 06/30/19 13:42 06/30/19 13:42 DC Dextrose (Dextrose 50%-Water Syringe) 12.5 gm PRN Q15MIN PRN 06/29/19 08:45 Diphenhydramine HCl (Benadryl) 25 mg PRN Q15MIN PRN 06/28/19 11:00 Enoxaparin Sodium (Lovenox 40mg Syringe) 40 mg DAILY 06/28/19 12:00 07/01/19 08:20 40 MG Fentanyl Citrate (Fentanyl 2ml Vial) 50 mcg PRN Q5MIN PRN 06/30/19 14:15 06/30/19 20:37 DC 06/30/19 16:26 50 MCG Folic Acid (Folic Acid) 1 mg DAILY 07/03/19 09:00 Glyburide (Diabeta) 5 mg BIDWMEALS 07/01/19 08:00 07/01/19 08:19 5 MG Haloperidol Lactate (Haldol Inj) 2.5 mg PRN Q4HRS PRN 06/29/19 12:00 Hydromorphone HCl (Dilaudid) 0.5 mg PRN Q10MIN PRN 06/30/19 14:15 06/30/19 20:37 DC Ibuprofen (Motrin) 600 mg 1X ONCE 06/28/19 04:15 06/28/19 04:18 DC 06/28/19 04:34 600 MG Influenza Virus Vaccine Quadrival (Afluria Quad 2019-20 (3yr Up) Syringe) 0.5 ml ONCE ONCE 06/28/19 15:00 06/28/19 15:01 DC 06/28/19 15:25 0.5 ML Info (CONTRAST GIVEN -- Rx MONITORING) 1 each PRN DAILY PRN 06/28/19 14:45 06/30/19 14:44 DC Insulin Glargine (Lantus Syringe) 15 unit DAILY08 07/01/19 08:00 07/01/19 08:22 15 UNIT Insulin Human Lispro (HumaLOG) 0-9 UNITS TIDWMEALS 06/29/19 12:00 07/01/19 08:21 9 UNITS Iohexol (Omnipaque 300 Mg/ml) 75 ml 1X ONCE 06/28/19 14:45 06/28/19 14:46 DC Ketorolac Tromethamine (Toradol 30mg Vial) 30 mg PRN Q6HRS PRN 06/28/19 10:30 07/03/19 10:29 06/30/19 05:35 30 MG Lactobacillus Rhamnosus (Culturelle) 1 cap BID 06/28/19 21:00 07/01/19 08:19 1 CAP Lidocaine HCl (Lidocaine Pf 2% Vial) 5 ml STK-MED ONCE 06/30/19 13:42 06/30/19 13:42 DC Lorazepam (Ativan Inj) 1 mg PRN Q1HR PRN 06/28/19 11:00 06/29/19 11:51 DC Lorazepam (Ativan) 2 mg Q6H 06/28/19 20:00 06/29/19 11:51 DC 06/29/19 09:00 2 MG Midazolam HCl (Versed) 2 mg STK-MED ONCE 06/30/19 13:42 06/30/19 13:42 DC Morphine Sulfate (Morphine Sulfate) 1 mg PRN Q10MIN PRN 06/30/19 14:15 06/30/19 20:37 DC Multivitamins (Thera M Plus) 1 tab DAILY 07/03/19 09:00 Multivitamins 10 ml/Thiamine HCl 100 mg/Folic Acid 1 mg/Sodium Chloride 1,011.2 ml @ 100 mls/ hr DAILY 06/29/19 09:00 07/03/19 19:07 UNV Nicotine (Nicoderm Cq 21mg) 1 patch PRN DAILY PRN 06/29/19 08:45 Ondansetron HCl (Zofran) 4 mg STK-MED ONCE 06/30/19 13:42 06/30/19 13:42 DC Potassium Chloride (Klor-Con) 40 meq 1X ONCE 06/28/19 06:30 06/28/19 06:33 DC 06/28/19 10:22 40 MEQ Prochlorperazine Edisylate (Compazine) 5 mg PACU PRN PRN 06/30/19 14:15 06/30/19 20:37 DC Propofol 20 ml @ As Directed STK-MED ONCE 06/30/19 13:42 06/30/19 13:42 DC Ringer's Solution 1,000 ml @ 30 mls/hr Q24H 06/30/19 14:10 06/30/19 20:37 DC 06/30/19 14:10 30 MLS/HR Sodium Chloride 1,000 ml @ 150 mls/hr Q6H40M 06/28/19 06:30 06/29/19 06:29 DC 06/29/19 01:30 150 MLS/HR Thiamine Mononitrate (Vitamin B-1) 100 mg DAILY 07/03/19 09:00 Thiamine HCl 100 mg DAILY 07/03/19 09:00 07/08/19 08:59 UNV Thiamine HCl 100 mg/Dextrose 51 ml @ 100 mls/hr DAILY 07/03/19 09:00 07/07/19 09:31 UNV Vancomycin HCl (Vanco Per Pharmacy) 1 each PRN DAILY PRN 06/28/19 11:00 06/30/19 15:27 1 EACH Vancomycin HCl (Vancomycin Trough Level) 1 each 1X ONCE 06/30/19 14:30 06/30/19 14:31 DC Vancomycin HCl 1.25 gm/Sodium Chloride 250 ml @ 167 mls/hr Q8H 06/30/19 23:00 07/01/19 07:03 167 MLS/HR Vancomycin HCl 1 gm/Sodium Chloride 250 ml @ 250 mls/hr Q8H 06/29/19 15:00 06/30/19 15:28 DC 06/30/19 06:41 250 MLS/HR Labs: Lab Laboratory Tests Test 06/30/19 11:32 06/30/19 13:55 06/30/19 15:17 06/30/19 16:11 Glucose (Fingerstick) 187 mg/dL (70-99) 150 mg/dL (70-99) Vancomycin Level Trough 12.3 mcg/mL (10.0-20.0) Vancomycin Last Dose Date 06/30/19 Vancomycin Last Dose Time 0700 Body Fluid Source Synovial Body Fluid Color Straw Body Fluid Clarity Hazy Body Fluid Nucleated Cells 240 /cmm (Not Established) Body Fluid Mononuclear WBCs (%) 41 % Body Fluid Polymorphonuclear Cells 59 % Body Fluid Total RBCs Counted 4000 /cmm (Not Established) Test 06/30/19 21:20 07/01/19 07:37 07/01/19 08:20 Glucose (Fingerstick) 314 mg/dL (70-99) 305 mg/dL (70-99) White Blood Count 10.4 x10^3/uL (4.0-11.0) Red Blood Count 3.45 x10^6/uL (3.50-5.40) Hemoglobin 10.4 g/dL (12.0-15.5) Hematocrit 31.2 % (36.0-47.0) Mean Corpuscular Volume 91 fL (79-100) Mean Corpuscular Hemoglobin 30 pg (25-35) Mean Corpuscular Hemoglobin Concent 33 g/dL (31-37) Red Cell Distribution Width 14.5 % (11.5-14.5) Platelet Count 458 x10^3/uL (140-400) Neutrophils (%) (Auto) 77 % (31-73) Lymphocytes (%) (Auto) 17 % (24-48) Monocytes (%) (Auto) 5 % (0-9) Eosinophils (%) (Auto) 0 % (0-3) Basophils (%) (Auto) 0 % (0-3) Neutrophils # (Auto) 8.1 x10^3/uL (1.8-7.7) Lymphocytes # (Auto) 1.8 x10^3/uL (1.0-4.8) Monocytes # (Auto) 0.5 x10^3/uL (0.0-1.1) Eosinophils # (Auto) 0.0 x10^3/uL (0.0-0.7) Basophils # (Auto) 0.0 x10^3/uL (0.0-0.2) Sodium Level 139 mmol/L (136-145) Potassium Level 3.6 mmol/L (3.5-5.1) Chloride Level 102 mmol/L (98-107) Carbon Dioxide Level 23 mmol/L (21-32) Anion Gap 14 (6-14) Blood Urea Nitrogen 13 mg/dL (7-20) Creatinine 0.7 mg/dL (0.6-1.0) Estimated GFR (Cockcroft-Gault) 89.3 Glucose Level 319 mg/dL (70-99) Calcium Level 7.2 mg/dL (8.5-10.1) Objective: Assessment: 1. Left shoulder cellulitis , no septic joint on surgery findings 06/30 S/P I and D of left acromioclavicular joint and aspiration glenohumeral joint : No intraoperative findings of signs of septic joint either acromioclavicular or glenohumeral joint 2. Leukocytosis. 3. Lactic acidosis. 4. History of alcoholism. 5. Polysubstance abuse. HIV and hepatitis neg 6. Diabetes. 7. History of hepatitis. 8. Neuropathy. Plan: Plan of Care Continue IV vancomycin and ceftriaxone.Monitor renal functions closely f/u intraoperative fluid or tissue for cultures. Follow up cultures and labs. Continue supportive care. JAKY TENORIO MD Jul 01, 2019 09:40
[2019-07-01 11:00] VITALS: BP 129/73
[2019-07-01] MEDS ORDERED: INSULIN LISPRO 300 UNITS/3 ML VIAL. SQ ONE (13:00)
[2019-07-01] MEDS: cefTRIAXone IV Push 1 GM VIAL. IVP SCH (13:16)
[2019-07-01] MEDS: VANCOMYCIN PER PHARMACY MC PRN (13:37)
[2019-07-01 15:00] VITALS: BP 133/64
[2019-07-01 19:00] VITALS: BP 126/78
[2019-07-01 23:00] VITALS: BP 145/73
[2019-07-02 03:00] VITALS: BP 78/43
[2019-07-02] MEDS: MORPHINE SULFATE 2 MG/ML VIAL. IV PRN (05:11)
[2019-07-02 05:30] LABS: CREATININE 0.6 mg/dL (0.6-1.0); GFR 106.7
[2019-07-02 07:00] VITALS: BP 146/95
[2019-07-02] MEDS: VANCOMYCIN 1.25 GM in IV NORMAL SALINE 250ML 250 ML IV SCH ×3 (08:32→23:08)
[2019-07-02] MEDS: KETOROLAC 30 MG/ML VIAL. IVP PRN ×2 (08:36→17:30)
[2019-07-02] MEDS: FOLIC ACID 1 MG TABLET. PO SCH (08:37)
[2019-07-02] MEDS: LACTOBACILLUS RHAMNOSUS GG 1 CAPSULE. PO SCH ×2 (08:37→21:01)
[2019-07-02] MEDS: HYDROcodone/APAP 5/325MG 1 TAB TABLET PO PRN ×2 (08:37→17:33)
[2019-07-02] MEDS: MULTIVITAMIN with MINERAL TABLET. PO SCH (08:37)
[2019-07-02] MEDS: THIAMINE 100 MG TABLET. PO SCH (08:37)
[2019-07-02] MEDS: INSULIN GLARGINE SYRINGE. SQ SCH (08:45)
[2019-07-02] MEDS: INSULIN LISPRO 300 UNITS/3 ML VIAL. SQ SCH ×6 (08:46→17:24)
--- NOTE | 2019-07-02 09:23 | PDOC ---
Infectious Disease Note Subjective: Subjective Pt says feels ok has postop Lt shoulder pain no f/c/n/v/d ROS: ROS Negative otherwise. Vital Signs: Vital Signs Vital Signs Date Time Temp Pulse Resp B/P (MAP) Pulse Ox O2 Delivery O2 Flow Rate FiO2 07/02/19 08:37 14 95 Room Air 07/02/19 07:00 98.0 87 146/95 (112) 98.0 Physical Exam: PHYSICAL EXAM GENERAL: Alert, awake x3 appears comfortable HEENT: Normocephalic, atraumatic, anicteric. No thrush. Dentition fair. NECK: Supple. LUNGS: Clear bilaterally. HEART: S1, S2. ABDOMEN: Soft, nontender, nondistended. EXTREMITIES: No edema, no cyanosis. Left shoulder dressing in place,dry intact DERMATOLOGIC: Warm, dry. No generalized rash. CENTRAL NERVOUS SYSTEM: Moves all 4 extremities. Grossly nonfocal. PSYCHIATRIC: Cooperative. Medications: Inpatient Meds: Current Medications Medications (Trade) Dose Ordered Sig/[facility] Start Time Stop Time Status Last Admin Dose Admin Acetaminophen/ Hydrocodone Bitart (Lortab 5/325) 1 tab PRN Q6HRS PRN 06/28/19 10:30 07/02/19 08:37 1 TAB Cefazolin Sodium/ Dextrose 50 ml @ 100 mls/hr 1X ONCE 06/28/19 02:30 06/28/19 02:59 DC 06/28/19 02:53 100 MLS/HR Ceftriaxone Sodium (Rocephin) 1 gm Q24H 06/28/19 12:00 07/01/19 13:16 1 GM Chlordiazepoxide (Librium) 25 mg PRN Q6HRS PRN 06/29/19 08:45 Clonidine HCl (Catapres) 0.1 mg PRN Q1HR PRN 06/28/19 11:00 Dexamethasone Sodium Phosphate (Decadron) 4 mg STK-MED ONCE 06/30/19 13:42 06/30/19 13:42 DC Dextrose (Dextrose 50%-Water Syringe) 12.5 gm PRN Q15MIN PRN 06/29/19 08:45 Diphenhydramine HCl (Benadryl) 25 mg PRN Q15MIN PRN 06/28/19 11:00 Enoxaparin Sodium (Lovenox 40mg Syringe) 40 mg DAILY 06/28/19 12:00 07/02/19 07:30 DC 07/01/19 08:20 40 MG Fentanyl Citrate (Fentanyl 2ml Vial) 50 mcg PRN Q5MIN PRN 06/30/19 14:15 06/30/19 20:37 DC 06/30/19 16:26 50 MCG Folic Acid (Folic Acid) 1 mg DAILY 07/02/19 09:00 07/02/19 08:37 1 MG Glyburide (Diabeta) 5 mg BIDWMEALS 07/01/19 08:00 07/01/19 13:06 DC 07/01/19 08:19 5 MG Haloperidol Lactate (Haldol Inj) 2.5 mg PRN Q4HRS PRN 06/29/19 12:00 07/02/19 07:30 DC Hydromorphone HCl (Dilaudid) 0.5 mg PRN Q10MIN PRN 06/30/19 14:15 06/30/19 20:37 DC Ibuprofen (Motrin) 600 mg 1X ONCE 06/28/19 04:15 06/28/19 04:18 DC 06/28/19 04:34 600 MG Influenza Virus Vaccine Quadrival (Afluria Quad 2019-20 (3yr Up) Syringe) 0.5 ml ONCE ONCE 06/28/19 15:00 06/28/19 15:01 DC 06/28/19 15:25 0.5 ML Info (CONTRAST GIVEN -- Rx MONITORING) 1 each PRN DAILY PRN 06/28/19 14:45 06/30/19 14:44 DC Insulin Glargine (Lantus Syringe) 20 unit DAILY08 07/02/19 08:00 07/02/19 08:45 20 UNIT Insulin Human Lispro (HumaLOG) 10 units TIDAC 07/01/19 16:30 07/02/19 08:46 10 UNITS Iohexol (Omnipaque 300 Mg/ml) 75 ml 1X ONCE 06/28/19 14:45 06/28/19 14:46 DC Ketorolac Tromethamine (Toradol 30mg Vial) 30 mg PRN Q6HRS PRN 06/28/19 10:30 07/03/19 10:29 07/02/19 08:36 30 MG Lactobacillus Rhamnosus (Culturelle) 1 cap BID 06/28/19 21:00 07/02/19 08:37 1 CAP Lidocaine HCl (Lidocaine Pf 2% Vial) 5 ml STK-MED ONCE 06/30/19 13:42 06/30/19 13:42 DC Lorazepam (Ativan Inj) 1 mg PRN Q1HR PRN 06/28/19 11:00 06/29/19 11:51 DC Lorazepam (Ativan) 2 mg Q6H 06/28/19 20:00 06/29/19 11:51 DC 06/29/19 09:00 2 MG Midazolam HCl (Versed) 2 mg STK-MED ONCE 06/30/19 13:42 06/30/19 13:42 DC Morphine Sulfate (Morphine Sulfate) 1 mg PRN Q10MIN PRN 06/30/19 14:15 06/30/19 20:37 DC Multivitamins (Thera M Plus) 1 tab DAILY 07/02/19 09:00 07/02/19 08:37 1 TAB Multivitamins 10 ml/Thiamine HCl 100 mg/Folic Acid 1 mg/Sodium Chloride 1,011.2 ml @ 100 mls/ hr DAILY 06/29/19 09:00 07/03/19 19:07 UNV Nicotine (Nicoderm Cq 21mg) 1 patch PRN DAILY PRN 06/29/19 08:45 Ondansetron HCl (Zofran) 4 mg STK-MED ONCE 06/30/19 13:42 06/30/19 13:42 DC Potassium Chloride (Klor-Con) 40 meq 1X ONCE 06/28/19 06:30 06/28/19 06:33 DC 06/28/19 10:22 40 MEQ Prochlorperazine Edisylate (Compazine) 5 mg PACU PRN PRN 06/30/19 14:15 06/30/19 20:37 DC Propofol 20 ml @ As Directed STK-MED ONCE 06/30/19 13:42 06/30/19 13:42 DC Ringer's Solution 1,000 ml @ 30 mls/hr Q24H 06/30/19 14:10 06/30/19 20:37 DC 06/30/19 14:10 30 MLS/HR Sodium Chloride 1,000 ml @ 150 mls/hr Q6H40M 06/28/19 06:30 06/29/19 06:29 DC 06/29/19 01:30 150 MLS/HR Thiamine Mononitrate (Vitamin B-1) 100 mg DAILY 07/02/19 09:00 07/02/19 08:37 100 MG Thiamine HCl 100 mg DAILY 07/03/19 09:00 07/08/19 08:59 UNV Thiamine HCl 100 mg/Dextrose 51 ml @ 100 mls/hr DAILY 07/03/19 09:00 07/07/19 09:31 UNV Vancomycin HCl (Vanco Per Pharmacy) 1 each PRN DAILY PRN 06/28/19 11:00 07/01/19 13:37 1 EACH Vancomycin HCl (Vancomycin Trough Level) 1 each 1X ONCE 06/30/19 14:30 06/30/19 14:31 DC Vancomycin HCl 1.25 gm/Sodium Chloride 250 ml @ 167 mls/hr Q8H 06/30/19 23:00 07/02/19 08:32 167 MLS/HR Vancomycin HCl 1 gm/Sodium Chloride 250 ml @ 250 mls/hr Q8H 06/29/19 15:00 06/30/19 15:28 DC 06/30/19 06:41 250 MLS/HR Labs: Lab Laboratory Tests Test 07/01/19 11:44 07/01/19 16:37 07/01/19 20:25 07/02/19 04:25 Glucose (Fingerstick) 380 mg/dL (70-99) 243 mg/dL (70-99) 163 mg/dL (70-99) Creatinine 0.6 mg/dL (0.6-1.0) Estimated GFR (Cockcroft-Gault) 106.7 Test 07/02/19 07:45 Glucose (Fingerstick) 186 mg/dL (70-99) Objective: Assessment: 1. Left shoulder cellulitis , no septic joint on surgery findings 06/30 S/P I and D of left acromioclavicular joint and aspiration glenohumeral joint : No intraoperative findings of signs of septic joint either acromioclavicular or glenohumeral joint synovial fluid wbc noted 2. Leukocytosis.resolved 3. Lactic acidosis.resolved 4. History of alcoholism. 5. Polysubstance abuse. HIV and hepatitis neg 6. Diabetes. 7. History of hepatitis. 8. Neuropathy. Plan: Plan of Care Continue IV vancomycin and ceftriaxone.Monitor renal functions closely f/u intraoperative fluid or tissue for cultures. Follow up cultures and labs. Continue supportive care. JAKY TENORIO MD Jul 02, 2019 09:22
--- NOTE | 2019-07-02 10:31 | PDOC ---
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 since my adjustments of insulin BS was 350s, OHA will not work - hgba1c 15 Cant do metformin -alcoholic NO withdrawal sxs VS good FLuid was hazey, straw colored and cx pending PLAn: ff intra op cxs IV abx CIWA COnt current insulin regimen, seems to be working Septic jt seems to have been unprovoked Vitals Vitals Vital Signs Date Time Temp Pulse Resp B/P (MAP) Pulse Ox O2 Delivery O2 Flow Rate FiO2 07/02/19 09:37 14 Room Air 07/02/19 08:37 95 07/02/19 07:00 98.0 87 146/95 (112) 98.0 Physical Exam Physical Exam GENERAL: Alert, awake x3 appears comfortable HEENT: Normocephalic, atraumatic, anicteric. No thrush. Dentition fair. NECK: Supple. LUNGS: Clear bilaterally. HEART: S1, S2. ABDOMEN: Soft, nontender, nondistended. EXTREMITIES: No edema, no cyanosis. Left shoulder dressing in place,dry intact DERMATOLOGIC: Warm, dry. No generalized rash. CENTRAL NERVOUS SYSTEM: Moves all 4 extremities. Grossly nonfocal. PSYCHIATRIC: Cooperative. General: Alert, Oriented X3, Cooperative, moderate distress (Patient unable to stay awake for more than a few minutes for exam) Heart: Regular rate, Normal S1, Normal S2 Lungs: Clear Abdomen: Normal bowel sounds, Soft, No hepatosplenomegaly, No masses, Other (RUQ tender) Extremities: No clubbing, No cyanosis, Normal pulses, Other (Left shoulder tender, swollen, limited ROM, passive with extreme pain) Skin: No breakdown, No significant lesion, Other (Left shoulder red) Labs LABS Laboratory Tests Test 07/01/19 11:44 07/01/19 16:37 07/01/19 20:25 07/02/19 04:25 Glucose (Fingerstick) 380 mg/dL (70-99) 243 mg/dL (70-99) 163 mg/dL (70-99) Creatinine 0.6 mg/dL (0.6-1.0) Estimated GFR (Cockcroft-Gault) 106.7 Test 07/02/19 07:45 Glucose (Fingerstick) 186 mg/dL (70-99) Review of Systems Review of Systems asleep i did not awaken Assessment and Plan Assessmemt and Plan Problems Medical Problems: (1) Alcohol abuse Status: Acute (2) Anemia Status: Acute (3) Cellulitis of left shoulder Status: Acute (4) Hypokalemia Status: Acute (5) Methamphetamine abuse Status: Acute (6) Sepsis Status: Acute (7) Uncontrolled diabetes mellitus Status: Acute Comment Review of Relevant I have reviewed the following items chari (where applicable) has been applied. Labs Laboratory Tests Test 06/30/19 11:32 06/30/19 13:55 06/30/19 15:17 06/30/19 16:11 Glucose (Fingerstick) 187 mg/dL (70-99) 150 mg/dL (70-99) Vancomycin Level Trough 12.3 mcg/mL (10.0-20.0) Vancomycin Last Dose Date 06/30/19 Vancomycin Last Dose Time 0700 Body Fluid Source Synovial Body Fluid Color Straw Body Fluid Clarity Hazy Body Fluid Nucleated Cells 240 /cmm (Not Established) Body Fluid Mononuclear WBCs (%) 41 % Body Fluid Polymorphonuclear Cells 59 % Body Fluid Total RBCs Counted 4000 /cmm (Not Established) Test 06/30/19 21:20 07/01/19 07:37 07/01/19 08:20 07/01/19 11:44 Glucose (Fingerstick) 314 mg/dL (70-99) 305 mg/dL (70-99) 380 mg/dL (70-99) White Blood Count 10.4 x10^3/uL (4.0-11.0) Red Blood Count 3.45 x10^6/uL (3.50-5.40) Hemoglobin 10.4 g/dL (12.0-15.5) Hematocrit 31.2 % (36.0-47.0) Mean Corpuscular Volume 91 fL (79-100) Mean Corpuscular Hemoglobin 30 pg (25-35) Mean Corpuscular Hemoglobin Concent 33 g/dL (31-37) Red Cell Distribution Width 14.5 % (11.5-14.5) Platelet Count 458 x10^3/uL (140-400) Neutrophils (%) (Auto) 77 % (31-73) Lymphocytes (%) (Auto) 17 % (24-48) Monocytes (%) (Auto) 5 % (0-9) Eosinophils (%) (Auto) 0 % (0-3) Basophils (%) (Auto) 0 % (0-3) Neutrophils # (Auto) 8.1 x10^3/uL (1.8-7.7) Lymphocytes # (Auto) 1.8 x10^3/uL (1.0-4.8) Monocytes # (Auto) 0.5 x10^3/uL (0.0-1.1) Eosinophils # (Auto) 0.0 x10^3/uL (0.0-0.7) Basophils # (Auto) 0.0 x10^3/uL (0.0-0.2) Sodium Level 139 mmol/L (136-145) Potassium Level 3.6 mmol/L (3.5-5.1) Chloride Level 102 mmol/L (98-107) Carbon Dioxide Level 23 mmol/L (21-32) Anion Gap 14 (6-14) Blood Urea Nitrogen 13 mg/dL (7-20) Creatinine 0.7 mg/dL (0.6-1.0) Estimated GFR (Cockcroft-Gault) 89.3 Glucose Level 319 mg/dL (70-99) Calcium Level 7.2 mg/dL (8.5-10.1) Test 07/01/19 16:37 07/01/19 20:25 07/02/19 04:25 07/02/19 07:45 Glucose (Fingerstick) 243 mg/dL (70-99) 163 mg/dL (70-99) 186 mg/dL (70-99) Creatinine 0.6 mg/dL (0.6-1.0) Estimated GFR (Cockcroft-Gault) 106.7 Laboratory Tests Test 07/01/19 11:44 07/01/19 16:37 07/01/19 20:25 07/02/19 04:25 Glucose (Fingerstick) 380 mg/dL (70-99) 243 mg/dL (70-99) 163 mg/dL (70-99) Creatinine 0.6 mg/dL (0.6-1.0) Estimated GFR (Cockcroft-Gault) 106.7 Test 07/02/19 07:45 Glucose (Fingerstick) 186 mg/dL (70-99) Microbiology 06/28/19 Blood Culture - Preliminary, Resulted NO GROWTH AFTER 3 DAYS 06/28/19 Urine Culture - Final, Complete 06/28/19 Urine Culture Result 1 (ANDREY) - Final, Complete Medications Current Medications Sodium Chloride 1,000 ml @ 1,000 mls/hr 1X ONCE IV Last administered on 06/28/19at 03:42; Start 06/28/19 at 02:30; Stop 06/28/19 at 03:29; Status DC Sodium Chloride 1,000 ml @ 1,000 mls/hr 1X ONCE IV Last administered on 06/28/19at 05:44; Start 06/28/19 at 02:30; Stop 06/28/19 at 03:29; Status DC Cefazolin Sodium/ Dextrose 50 ml @ 100 mls/hr 1X ONCE IV Last administered on 06/28/19at 02:53; Start 06/28/19 at 02:30; Stop 06/28/19 at 02:59; Status DC Vancomycin HCl 250 ml @ 250 mls/hr 1X ONCE IV Last administered on 06/28/19at 02:54; Start 06/28/19 at 02:30; Stop 06/28/19 at 03:29; Status DC Fentanyl Citrate (Fentanyl 2ml Vial) 50 mcg 1X ONCE IVP Last administered on 06/28/19at 02:39; Start 06/28/19 at 02:30; Stop 06/28/19 at 02:31; Status DC Ibuprofen (Motrin) 600 mg 1X ONCE PO Last administered on 06/28/19at 04:34; Start 06/28/19 at 04:15; Stop 06/28/19 at 04:18; Status DC Potassium Chloride (Klor-Con) 40 meq 1X ONCE PO Last administered on at 10:22; Start 06/28/19 at 06:30; Stop 06/28/19 at 06:33; Status DC Sodium Chloride 1,000 ml @ 150 mls/hr Q6H40M IV Last administered on 06/29/19at 01:30; Start 06/28/19 at 06:30; Stop 06/29/19 at 06:29; Status DC Dextrose (Dextrose 50%-Water Syringe) 12.5 gm PRN Q15MIN PRN IV SEE COMMENTS; Start 06/28/19 at 06:30; Stop 06/29/19 at 08:47; Status DC Insulin Glargine (Lantus Syringe) 8 unit QHS SQ Last administered on 06/30/19at 21:53; Start 06/28/19 at 21:00; Stop 07/01/19 at 07:37; Status DC Insulin Human Lispro (HumaLOG) 0-7 UNITS TIDACHC SQ Last administered on 06/28/19at 21:38; Start 06/28/19 at 11:30; Stop 06/29/19 at 08:42; Status DC Dextrose (Dextrose 50%-Water Syringe) 12.5 gm PRN Q15MIN PRN IV SEE COMMENTS; Start 06/28/19 at 10:30; Status UNV Acetaminophen/ Hydrocodone Bitart (Lortab 5/325) 1 tab PRN Q6HRS PRN PO PAIN Last administered on 07/02/19at 08:37; Start 06/28/19 at 10:30 Morphine Sulfate (Morphine Sulfate) 2 mg PRN Q4HRS PRN IV MODERATE-SEVERE PAIN Last administered on 06/29/19at 02:24; Start 06/28/19 at 10:30; Stop 06/29/19 at 11:51; Status DC Enoxaparin Sodium (Lovenox 40mg Syringe) 40 mg DAILY SQ Last administered on 07/01/19at 08:20; Start 06/28/19 at 12:00; Stop 07/02/19 at 07:30; Status DC Ketorolac Tromethamine (Toradol 30mg Vial) 30 mg PRN Q6HRS PRN IVP MILD PAIN 1- 3 Last administered on 07/02/19at 08:36; Start 06/28/19 at 10:30; Stop 07/03/19 at 10:29 Multivitamins 10 ml/Thiamine HCl 100 mg/Folic Acid 1 mg/Sodium Chloride 1,011.2 ml @ 100 mls/ hr DAILY IV Last administered on 07/01/19at 08:20; Start 06/28/19 at 12:00; Stop 07/02/19 at 01:00; Status DC Lorazepam (Ativan) 2 mg PRN Q1HR PRN PO For CIWA 8-14; Start 06/28/19 at 11:00; Stop 06/29/19 at 11:51; Status DC Lorazepam (Ativan Inj) 1 mg PRN Q1HR PRN IV For CIWA 8-14; Start 06/28/19 at 11:00; Stop 06/29/19 at 11:51; Status DC Haloperidol Lactate (Haldol Inj) 5 mg PRN Q4HRS PRN IVP Hallucinatns,Confusn,Delirium; Start 06/28/19 at 11:00; Stop 06/29/19 at 11:51; Status DC Diphenhydramine HCl (Benadryl) 25 mg PRN Q15MIN PRN IVP EPS symptoms 2'Haldol admin; Start 06/28/19 at 11:00 Clonidine HCl (Catapres) 0.1 mg PRN Q1HR PRN PO SBP > 180 or DBP > 100, MRX3; Start 06/28/19 at 11:00 Vancomycin HCl 1 gm/Sodium Chloride 250 ml @ 250 mls/hr Q12H IV Last administered on 06/29/19at 02:26; Start 06/28/19 at 15:00; Stop 06/29/19 at 14:49; Status DC Vancomycin HCl (Vanco Per Pharmacy) 1 each PRN DAILY PRN MC SEE COMMENTS Last administered on 07/01/19at 13:37; Start 06/28/19 at 11:00 Ceftriaxone Sodium (Rocephin) 1 gm Q24H IVP Last administered on 07/01/19at 13:16; Start 06/28/19 at 12:00 Influenza Virus Vaccine Quadrival (Afluria Quad 2019-20 (3yr Up) Syringe) 0.5 ml ONCE ONCE VAX IM Last administered on 06/28/19at 15:25; Start 06/28/19 at 15:00; Stop 06/28/19 at 15:01; Status DC Iohexol (Omnipaque 300 Mg/ml) 75 ml 1X ONCE IV ; Start 06/28/19 at 14:45; Stop 06/28/19 at 14:46; Status DC Info (CONTRAST GIVEN -- Rx MONITORING) 1 each PRN DAILY PRN MC SEE COMMENTS; Start 06/28/19 at 14:45; Stop 06/30/19 at 14:44; Status DC Lactobacillus Rhamnosus (Culturelle) 1 cap BID PO Last administered on at 08:37; Start 06/28/19 at 21:00 Vancomycin HCl (Vancomycin Trough Level) 1 each 1X ONCE MC ; Start 06/29/19 at 14:30; Stop 06/29/19 at 14:31; Status DC Multivitamins 10 ml/Thiamine HCl 100 mg/Folic Acid 1 mg/Sodium Chloride 1,011.2 ml @ 100 mls/ hr DAILY IV ; Start 06/29/19 at 09:00; Stop 07/03/19 at 19:07; Status UNV Multivitamins (Thera M Plus) 1 tab DAILY PO Last administered on 07/02/19at 08:37; Start 07/02/19 at 09:00 Folic Acid (Folic Acid) 1 mg DAILY PO Last administered on 07/02/19at 08:37; Start 07/02/19 at 09:00 Thiamine Mononitrate (Vitamin B-1) 100 mg DAILY PO Last administered on 07/02/19at 08:37; Start 07/02/19 at 09:00 Thiamine HCl 100 mg DAILY IM ; Start 07/03/19 at 09:00; Stop 07/08/19 at 08:59; Status UNV Thiamine HCl 100 mg/Dextrose 51 ml @ 100 mls/hr DAILY IV ; Start 07/03/19 at 09:00; Stop 07/07/19 at 09:31; Status UNV Lorazepam (Ativan) 2 mg Q6H PO Last administered on 06/29/19at 09:00; Start 06/28/19 at 20:00; Stop 06/29/19 at 11:51; Status DC Chlordiazepoxide (Librium) 25 mg Q6H PO ; Start 06/28/19 at 19:30; Stop 06/30/19 at 01:31; Status UNV Chlordiazepoxide (Librium) 25 mg PRN Q6HRS PRN PO ANXIETY / AGITATION; Start 06/29/19 at 08:45 Insulin Human Lispro (HumaLOG) 0-9 UNITS TIDWMEALS SQ Last administered on 07/02/19at 08:46; Start 06/29/19 at 12:00 Dextrose (Dextrose 50%-Water Syringe) 12.5 gm PRN Q15MIN PRN IV SEE COMMENTS; Start 06/29/19 at 08:45 Nicotine (Nicoderm Cq 21mg) 1 patch PRN DAILY PRN TD SMOKING CESSATION; Start 06/29/19 at 08:45 Haloperidol Lactate (Haldol Inj) 2.5 mg PRN Q4HRS PRN IVP Hallucinatns,Confusn,Delirium; Start 06/29/19 at 12:00; Stop 07/02/19 at 07:30; Status DC Morphine Sulfate (Morphine Sulfate) 1 mg PRN Q4HRS PRN IV MODERATE-SEVERE PAIN Last administered on 07/02/19at 05:11; Start 06/29/19 at 12:00 Vancomycin HCl 1 gm/Sodium Chloride 250 ml @ 250 mls/hr Q8H IV Last administered on 06/30/19at 06:41; Start 06/29/19 at 15:00; Stop 06/30/19 at 15:28; Status DC Vancomycin HCl (Vancomycin Trough Level) 1 each 1X ONCE MC Last administered on 06/30/19at 14:30; Start 06/30/19 at 14:30; Stop 06/30/19 at 14:31; Status DC Propofol 20 ml @ As Directed STK-MED ONCE IV ; Start 06/30/19 at 13:42; Stop 06/30/19 at 13:42; Status DC Dexamethasone Sodium Phosphate (Decadron) 4 mg STK-MED ONCE .ROUTE ; Start 06/30/19 at 13:42; Stop 06/30/19 at 13:42; Status DC Lidocaine HCl (Lidocaine Pf 2% Vial) 5 ml STK-MED ONCE .ROUTE ; Start 06/30/19 at 13:42; Stop 06/30/19 at 13:42; Status DC Ondansetron HCl (Zofran) 4 mg STK-MED ONCE .ROUTE ; Start 06/30/19 at 13:42; Stop 06/30/19 at 13:42; Status DC Midazolam HCl (Versed) 2 mg STK-MED ONCE .ROUTE ; Start 06/30/19 at 13:42; Stop 06/30/19 at 13:42; Status DC Fentanyl Citrate (Fentanyl 2ml Vial) 100 mcg STK-MED ONCE .ROUTE ; Start 06/30/19 at 14:00; Stop 06/30/19 at 14:00; Status DC Fentanyl Citrate (Fentanyl 2ml Vial) 25 mcg PRN Q5MIN PRN IV MILD PAIN 1-3; Start 06/30/19 at 14:15; Stop 06/30/19 at 20:37; Status DC Fentanyl Citrate (Fentanyl 2ml Vial) 50 mcg PRN Q5MIN PRN IV MODERATE TO SEVERE PAIN Last administered on 06/30/19at 16:26; Start 06/30/19 at 14:15; Stop 06/30/19 at 20:37; Status DC Morphine Sulfate (Morphine Sulfate) 1 mg PRN Q10MIN PRN IV SEVERE PAIN 7-10; Start 06/30/19 at 14:15; Stop 06/30/19 at 20:37; Status DC Ringer's Solution 1,000 ml @ 30 mls/hr Q24H IV Last administered on 06/30/19at 14:10; Start 06/30/19 at 14:10; Stop 06/30/19 at 20:37; Status DC Hydromorphone HCl (Dilaudid) 0.5 mg PRN Q10MIN PRN IV SEV PAIN, Second choice; Start 06/30/19 at 14:15; Stop 06/30/19 at 20:37; Status DC Prochlorperazine Edisylate (Compazine) 5 mg PACU PRN PRN IV NAUSEA, MRX1; Start 06/30/19 at 14:15; Stop 06/30/19 at 20:37; Status DC Vancomycin HCl 1.25 gm/Sodium Chloride 250 ml @ 167 mls/hr Q8H IV ; Start 06/30/19 at 15:00; Status Cancel Vancomycin HCl 1.25 gm/Sodium Chloride 250 ml @ 167 mls/hr Q8H IV Last administered on 07/02/19at 08:32; Start 06/30/19 at 23:00 Insulin Glargine (Lantus Syringe) 15 unit DAILY08 SQ Last administered on 07/01at 08:22; Start 07/01/19 at 08:00; Stop 07/01/19 at 13:06; Status DC Glyburide (Diabeta) 5 mg BIDWMEALS PO Last administered on 07/01/19at 08:19; Start 07/01/19 at 08:00; Stop 07/01/19 at 13:06; Status DC Insulin Glargine (Lantus Syringe) 20 unit DAILY08 SQ Last administered on 07/02/19at 08:45; Start 07/02/19 at 08:00 Insulin Human Lispro (HumaLOG) 15 units 1X ONCE SQ Last administered on 07/01/19at 13:19; Start 07/01/19 at 13:00; Stop 07/01/19 at 13:07; Status DC Insulin Human Lispro (HumaLOG) 10 units TIDAC SQ Last administered on 07/02/19at 08:46; Start 07/01/19 at 16:30 Active Scripts Active Reported No Known Medications Prior To Admisstion (Info) Each 1 Each Vitals/I & O Vital Sign - Last 24 Hours 07/01/19 07/01/19 07/01/19 07/01/19 11:00 15:00 19:00 20:00 Temp 98.2 98.6 98.5 98.2 98.6 98.5 Pulse 103 89 91 Resp 17 17 18 B/P (MAP) 129/73 (91) 133/64 (87) 126/78 (94) Pulse Ox 97 95 97 O2 Delivery Room Air Room Air Room Air Room Air 07/01/19 07/01/19 07/01/19 07/01/19 21:07 22:13 23:00 23:50 Temp 98.4 98.4 Pulse 92 Resp 18 B/P (MAP) 145/73 (97) Pulse Ox 95 O2 Delivery Room Air Room Air Room Air Room Air 07/02/19 07/02/19 07/02/19 07/02/19 00:23 03:00 05:11 05:45 Temp 97.9 97.9 Pulse 84 Resp 18 B/P (MAP) 78/43 (55) Pulse Ox 95 O2 Delivery Room Air Room Air Room Air Room Air 07/02/19 07/02/19 07/02/19 07:00 08:37 09:37 Temp 98.0 98.0 Pulse 87 Resp 16 14 14 B/P (MAP) 146/95 (112) Pulse Ox 96 95 O2 Delivery Room Air Room Air Room Air Intake and Output 07/01/19 07/01/19 07/02/19 15:00 23:00 07:00 Intake Total 250 ml 450 ml 300 ml Balance 250 ml 450 ml 300 ml JEANNIE RAJPUT MD Jul 02, 2019 10:31
[2019-07-02 11:00] VITALS: BP 139/83
--- NOTE | 2019-07-02 12:20 | NUR ---
SW following. Discussed with RN, pt has new consult. Pt will not be discharging today. SW will continue to follow.
[2019-07-02] MEDS: cefTRIAXone IV Push 1 GM VIAL. IVP SCH (12:24)
[2019-07-02] MEDS: VANCOMYCIN PER PHARMACY MC PRN (14:26)
[2019-07-02 14:53] VITALS: BP 132/88
[2019-07-02 19:00] VITALS: BP 144/83
[2019-07-02 23:00] VITALS: BP 158/86
[2019-07-03] MEDS: KETOROLAC 30 MG/ML VIAL. IVP PRN (00:11)
[2019-07-03] MEDS: HYDROcodone/APAP 5/325MG 1 TAB TABLET PO PRN ×2 (00:11→09:51)
[2019-07-03 03:00] VITALS: BP 158/87
[2019-07-03 05:49] LABS: BASO # 0.1 x10^3/uL (0.0-0.2); BASO % 1 % (0-3); EOS # 0.2 x10^3/uL (0.0-0.7); EOS % 2 % (0-3); HEMATOCRIT 30.7 % (36.0-47.0); HEMOGLOBIN 10.1 g/dL (12.0-15.5); LYMPH # 2.8 x10^3/uL (1.0-4.8); LYMPH % 32 % (24-48); MEAN CORPUSCULAR HEMOGLOBIN 30 pg (25-35); MEAN CORPUSCULAR HGB CONC 33 g/dL (31-37); MEAN CORPUSCULAR VOLUME 91 fL (79-100); MONO # 0.7 x10^3/uL (0.0-1.1); MONO % 8 % (0-9); NEUT # 5.1 x10^3/uL (1.8-7.7); NEUT % 57 % (31-73); PLATELET COUNT 484 x10^3/uL (140-400); RED BLOOD COUNT 3.39 x10^6/uL (3.50-5.40); RED CELL DISTRIBUTION WIDTH 14.7 % (11.5-14.5)
[2019-07-03 07:00] VITALS: BP 146/84
[2019-07-03] MEDS: LACTOBACILLUS RHAMNOSUS GG 1 CAPSULE. PO SCH (08:35)
[2019-07-03] MEDS: FOLIC ACID 1 MG TABLET. PO SCH (08:35)
[2019-07-03] MEDS: MULTIVITAMIN with MINERAL TABLET. PO SCH (08:35)
[2019-07-03] MEDS: THIAMINE 100 MG TABLET. PO SCH (08:35)
[2019-07-03] MEDS: VANCOMYCIN 1.25 GM in IV NORMAL SALINE 250ML 250 ML IV SCH ×2 (08:37→15:00)
[2019-07-03] MEDS: INSULIN GLARGINE SYRINGE. SQ SCH ×3 (08:42→10:01)
[2019-07-03] MEDS: INSULIN LISPRO 300 UNITS/3 ML VIAL. SQ SCH ×4 (08:43→12:31)
[2019-07-03] MEDS ORDERED: THIAMINE IM 200 MG/2 ML VIAL. IM SCH (09:00)
[2019-07-03] MEDS ORDERED: THIAMINE INJ 100 MG in IV DEXTROSE 5% 50 ML IV SCH (09:00)
--- NOTE | 2019-07-03 09:45 | PDOC ---
Infectious Disease Note Subjective: Subjective Pt says feels ok has postop Lt shoulder pain no f/c/n/v/d ROS: ROS Negative otherwise. Vital Signs: Vital Signs Vital Signs Date Time Temp Pulse Resp B/P (MAP) Pulse Ox O2 Delivery O2 Flow Rate FiO2 07/03/19 07:00 98.0 87 20 146/84 (104) 92 Room Air 98.0 Physical Exam: PHYSICAL EXAM GENERAL: Alert, awake x3 appears comfortable HEENT: Normocephalic, atraumatic, anicteric. No thrush. Dentition fair. NECK: Supple. LUNGS: Clear bilaterally. HEART: S1, S2. ABDOMEN: Soft, nontender, nondistended. EXTREMITIES: No edema, no cyanosis. Left shoulder dressing in place,dry intact DERMATOLOGIC: Warm, dry. No generalized rash. CENTRAL NERVOUS SYSTEM: Moves all 4 extremities. Grossly nonfocal. PSYCHIATRIC: Cooperative. Medications: Inpatient Meds: Current Medications Medications (Trade) Dose Ordered Sig/Carmine Start Time Stop Time Status Last Admin Dose Admin Acetaminophen/ Hydrocodone Bitart (Lortab 5/325) 1 tab PRN Q6HRS PRN 06/28/19 10:30 07/03/19 00:11 1 TAB Cefazolin Sodium/ Dextrose 50 ml @ 100 mls/hr 1X ONCE 06/28/19 02:30 06/28/19 02:59 DC 06/28/19 02:53 100 MLS/HR Ceftriaxone Sodium (Rocephin) 1 gm Q24H 06/28/19 12:00 07/02/19 12:24 1 GM Chlordiazepoxide (Librium) 25 mg PRN Q6HRS PRN 06/29/19 08:45 Clonidine HCl (Catapres) 0.1 mg PRN Q1HR PRN 06/28/19 11:00 Dexamethasone Sodium Phosphate (Decadron) 4 mg STK-MED ONCE 06/30/19 13:42 06/30/19 13:42 DC Dextrose (Dextrose 50%-Water Syringe) 12.5 gm PRN Q15MIN PRN 06/29/19 08:45 Diphenhydramine HCl (Benadryl) 25 mg PRN Q15MIN PRN 06/28/19 11:00 Enoxaparin Sodium (Lovenox 40mg Syringe) 40 mg DAILY 06/28/19 12:00 07/02/19 07:30 DC 07/01/19 08:20 40 MG Fentanyl Citrate (Fentanyl 2ml Vial) 50 mcg PRN Q5MIN PRN 06/30/19 14:15 06/30/19 20:37 DC 06/30/19 16:26 50 MCG Folic Acid (Folic Acid) 1 mg DAILY 07/02/19 09:00 07/03/19 08:35 1 MG Glyburide (Diabeta) 5 mg BIDWMEALS 07/01/19 08:00 07/01/19 13:06 DC 07/01/19 08:19 5 MG Haloperidol Lactate (Haldol Inj) 2.5 mg PRN Q4HRS PRN 06/29/19 12:00 07/02/19 07:30 DC Hydromorphone HCl (Dilaudid) 0.5 mg PRN Q10MIN PRN 06/30/19 14:15 06/30/19 20:37 DC Ibuprofen (Motrin) 600 mg 1X ONCE 06/28/19 04:15 06/28/19 04:18 DC 06/28/19 04:34 600 MG Influenza Virus Vaccine Quadrival (Afluria Quad 2019-20 (3yr Up) Syringe) 0.5 ml ONCE ONCE 06/28/19 15:00 06/28/19 15:01 DC 06/28/19 15:25 0.5 ML Info (CONTRAST GIVEN -- Rx MONITORING) 1 each PRN DAILY PRN 06/28/19 14:45 06/30/19 14:44 DC Insulin Glargine (Lantus Syringe) 30 unit DAILY08 07/03/19 09:30 Insulin Human Lispro (HumaLOG) 10 units TIDAC 07/01/19 16:30 07/03/19 08:44 10 UNITS Iohexol (Omnipaque 300 Mg/ml) 75 ml 1X ONCE 06/28/19 14:45 06/28/19 14:46 DC Ketorolac Tromethamine (Toradol 30mg Vial) 30 mg PRN Q6HRS PRN 06/28/19 10:30 07/03/19 10:29 07/03/19 00:11 30 MG Lactobacillus Rhamnosus (Culturelle) 1 cap BID 06/28/19 21:00 07/03/19 08:35 1 CAP Lidocaine HCl (Lidocaine Pf 2% Vial) 5 ml STK-MED ONCE 06/30/19 13:42 06/30/19 13:42 DC Lorazepam (Ativan Inj) 1 mg PRN Q1HR PRN 06/28/19 11:00 06/29/19 11:51 DC Lorazepam (Ativan) 2 mg Q6H 06/28/19 20:00 06/29/19 11:51 DC 06/29/19 09:00 2 MG Midazolam HCl (Versed) 2 mg STK-MED ONCE 06/30/19 13:42 06/30/19 13:42 DC Morphine Sulfate (Morphine Sulfate) 1 mg PRN Q10MIN PRN 06/30/19 14:15 06/30/19 20:37 DC Multivitamins (Thera M Plus) 1 tab DAILY 07/02/19 09:00 07/03/19 08:35 1 TAB Multivitamins 10 ml/Thiamine HCl 100 mg/Folic Acid 1 mg/Sodium Chloride 1,011.2 ml @ 100 mls/ hr DAILY 06/29/19 09:00 07/03/19 19:07 UNV Nicotine (Nicoderm Cq 21mg) 1 patch PRN DAILY PRN 06/29/19 08:45 Ondansetron HCl (Zofran) 4 mg STK-MED ONCE 06/30/19 13:42 06/30/19 13:42 DC Potassium Chloride (Klor-Con) 40 meq 1X ONCE 06/28/19 06:30 06/28/19 06:33 DC 06/28/19 10:22 40 MEQ Prochlorperazine Edisylate (Compazine) 5 mg PACU PRN PRN 06/30/19 14:15 06/30/19 20:37 DC Propofol 20 ml @ As Directed STK-MED ONCE 06/30/19 13:42 06/30/19 13:42 DC Ringer's Solution 1,000 ml @ 30 mls/hr Q24H 06/30/19 14:10 06/30/19 20:37 DC 06/30/19 14:10 30 MLS/HR Sodium Chloride 1,000 ml @ 150 mls/hr Q6H40M 06/28/19 06:30 06/29/19 06:29 DC 06/29/19 01:30 150 MLS/HR Thiamine Mononitrate (Vitamin B-1) 100 mg DAILY 07/02/19 09:00 07/03/19 08:35 100 MG Thiamine HCl 100 mg DAILY 07/03/19 09:00 07/08/19 08:59 UNV Thiamine HCl 100 mg/Dextrose 51 ml @ 100 mls/hr DAILY 07/03/19 09:00 07/07/19 09:31 UNV Vancomycin HCl (Vanco Per Pharmacy) 1 each PRN DAILY PRN 06/28/19 11:00 07/02/19 14:26 1 EACH Vancomycin HCl (Vancomycin Trough Level) 1 each 1X ONCE 06/30/19 14:30 06/30/19 14:31 DC 06/30/19 14:30 1 EACH Vancomycin HCl 1.25 gm/Sodium Chloride 250 ml @ 167 mls/hr Q8H 06/30/19 23:00 07/03/19 08:37 167 MLS/HR Vancomycin HCl 1 gm/Sodium Chloride 250 ml @ 250 mls/hr Q8H 06/29/19 15:00 06/30/19 15:28 DC 06/30/19 06:41 250 MLS/HR Labs: Lab Laboratory Tests Test 07/02/19 11:26 07/02/19 16:43 07/02/19 21:03 07/03/19 04:09 Glucose (Fingerstick) 163 mg/dL (70-99) 141 mg/dL (70-99) 254 mg/dL (70-99) White Blood Count 9.0 x10^3/uL (4.0-11.0) Red Blood Count 3.39 x10^6/uL (3.50-5.40) Hemoglobin 10.1 g/dL (12.0-15.5) Hematocrit 30.7 % (36.0-47.0) Mean Corpuscular Volume 91 fL (79-100) Mean Corpuscular Hemoglobin 30 pg (25-35) Mean Corpuscular Hemoglobin Concent 33 g/dL (31-37) Red Cell Distribution Width 14.7 % (11.5-14.5) Platelet Count 484 x10^3/uL (140-400) Neutrophils (%) (Auto) 57 % (31-73) Lymphocytes (%) (Auto) 32 % (24-48) Monocytes (%) (Auto) 8 % (0-9) Eosinophils (%) (Auto) 2 % (0-3) Basophils (%) (Auto) 1 % (0-3) Neutrophils # (Auto) 5.1 x10^3/uL (1.8-7.7) Lymphocytes # (Auto) 2.8 x10^3/uL (1.0-4.8) Monocytes # (Auto) 0.7 x10^3/uL (0.0-1.1) Eosinophils # (Auto) 0.2 x10^3/uL (0.0-0.7) Basophils # (Auto) 0.1 x10^3/uL (0.0-0.2) Test 07/03/19 08:00 Glucose (Fingerstick) 239 mg/dL (70-99) Objective: Assessment: 1. Left shoulder cellulitis , no septic joint on surgery findings 06/30 S/P I and D of left acromioclavicular joint and aspiration glenohumeral joint : No intraoperative findings of signs of septic joint either acromioclavicular or glenohumeral joint synovial fluid c/s beg 2. Leukocytosis.resolved 3. Lactic acidosis.resolved 4. History of alcoholism. 5. Polysubstance abuse. HIV and hepatitis neg 6. Diabetes. 7. History of hepatitis. 8. Neuropathy. 9. UC mixed urogenital paul Plan: Plan of Care Continue IV ceftriaxone and Vanc f/u intraoperative fluid or tissue for cultures. Follow up cultures and labs. Continue supportive care. JAKY TENORIO MD Jul 03, 2019 09:45
[2019-07-03 11:00] VITALS: BP 142/87
--- NOTE | 2019-07-03 11:21 | PDOC ---
PROGRESS NOTES Chief Complaint Chief Complaint septic Left shoulder with cellulitis - s/p I and D 06/30/19 (hazy fluid) Sepsis - with no organ damage Lactic acidosis - Alcoholism - Hypokalemia - K 3.1, replaced Diabetes - UNCONTROLLED hgba1c 12 Hypertension - Hepatitis - alcoholic by history Neuropathy - 2/2 ETOH and DM Smoker - nicotine patch Amphetamine use - History of Present Illness History of Present Illness she ahs more range of motion since I and D of that left shoulder POD # 3, wants to go home I undressed the dressing, 4 sutures, wound is dry and well coaptated Ortho has yet to see pt since post op Intra op cxs still cooking ID on board, iv abx NO fevers BS better! since my adjustments of insulin - though self pay, she mentions a plan to me where she can get the meds - Rx inc ann INtra op fluid was hazy, straw colored and cx pending PLAn: ff intra op cxs IV abx CIWA COnt current insulin regimen, seems to be working - rx on chart Septic jt seems to have been unprovoked Vitals Vitals Vital Signs Date Time Temp Pulse Resp B/P (MAP) Pulse Ox O2 Delivery O2 Flow Rate FiO2 07/03/19 09:51 18 92 Room Air 07/03/19 07:00 98.0 87 146/84 (104) 98.0 Physical Exam Physical Exam GENERAL: Alert, awake x3 appears comfortable HEENT: Normocephalic, atraumatic, anicteric. No thrush. Dentition fair. NECK: Supple. LUNGS: Clear bilaterally. HEART: S1, S2. ABDOMEN: Soft, nontender, nondistended. EXTREMITIES: No edema, no cyanosis. Left shoulder dressing in place,dry intact DERMATOLOGIC: Warm, dry. No generalized rash. CENTRAL NERVOUS SYSTEM: Moves all 4 extremities. Grossly nonfocal. PSYCHIATRIC: Cooperative. General: Alert, Oriented X3, Cooperative, moderate distress (Patient unable to stay awake for more than a few minutes for exam) Heart: Regular rate, Normal S1, Normal S2 Lungs: Clear Abdomen: Normal bowel sounds, Soft, No hepatosplenomegaly, No masses, Other (RUQ tender) Extremities: No clubbing, No cyanosis, Normal pulses, Other (Left shoulder tender, swollen, limited ROM, passive with extreme pain) Skin: No breakdown, No significant lesion, Other (Left shoulder red) Labs LABS Laboratory Tests Test 07/02/19 11:26 07/02/19 16:43 07/02/19 21:03 07/03/19 04:09 Glucose (Fingerstick) 163 mg/dL (70-99) 141 mg/dL (70-99) 254 mg/dL (70-99) White Blood Count 9.0 x10^3/uL (4.0-11.0) Red Blood Count 3.39 x10^6/uL (3.50-5.40) Hemoglobin 10.1 g/dL (12.0-15.5) Hematocrit 30.7 % (36.0-47.0) Mean Corpuscular Volume 91 fL (79-100) Mean Corpuscular Hemoglobin 30 pg (25-35) Mean Corpuscular Hemoglobin Concent 33 g/dL (31-37) Red Cell Distribution Width 14.7 % (11.5-14.5) Platelet Count 484 x10^3/uL (140-400) Neutrophils (%) (Auto) 57 % (31-73) Lymphocytes (%) (Auto) 32 % (24-48) Monocytes (%) (Auto) 8 % (0-9) Eosinophils (%) (Auto) 2 % (0-3) Basophils (%) (Auto) 1 % (0-3) Neutrophils # (Auto) 5.1 x10^3/uL (1.8-7.7) Lymphocytes # (Auto) 2.8 x10^3/uL (1.0-4.8) Monocytes # (Auto) 0.7 x10^3/uL (0.0-1.1) Eosinophils # (Auto) 0.2 x10^3/uL (0.0-0.7) Basophils # (Auto) 0.1 x10^3/uL (0.0-0.2) Test 07/03/19 08:00 Glucose (Fingerstick) 239 mg/dL (70-99) Review of Systems Review of Systems some left shoulder pain, stable - the rest 14 pt neg Assessment and Plan Assessmemt and Plan Problems Medical Problems: (1) Alcohol abuse Status: Acute (2) Anemia Status: Acute (3) Cellulitis of left shoulder Status: Acute (4) Hypokalemia Status: Acute (5) Methamphetamine abuse Status: Acute (6) Sepsis Status: Acute (7) Uncontrolled diabetes mellitus Status: Acute Comment Review of Relevant I have reviewed the following items chari (where applicable) has been applied. Labs Laboratory Tests Test 07/01/19 11:44 07/01/19 16:37 07/01/19 20:25 07/02/19 04:25 Glucose (Fingerstick) 380 mg/dL (70-99) 243 mg/dL (70-99) 163 mg/dL (70-99) Creatinine 0.6 mg/dL (0.6-1.0) Estimated GFR (Cockcroft-Gault) 106.7 Test 07/02/19 07:45 07/02/19 11:26 07/02/19 16:43 07/02/19 21:03 Glucose (Fingerstick) 186 mg/dL (70-99) 163 mg/dL (70-99) 141 mg/dL (70-99) 254 mg/dL (70-99) Test 07/03/19 04:09 07/03/19 08:00 White Blood Count 9.0 x10^3/uL (4.0-11.0) Red Blood Count 3.39 x10^6/uL (3.50-5.40) Hemoglobin 10.1 g/dL (12.0-15.5) Hematocrit 30.7 % (36.0-47.0) Mean Corpuscular Volume 91 fL (79-100) Mean Corpuscular Hemoglobin 30 pg (25-35) Mean Corpuscular Hemoglobin Concent 33 g/dL (31-37) Red Cell Distribution Width 14.7 % (11.5-14.5) Platelet Count 484 x10^3/uL (140-400) Neutrophils (%) (Auto) 57 % (31-73) Lymphocytes (%) (Auto) 32 % (24-48) Monocytes (%) (Auto) 8 % (0-9) Eosinophils (%) (Auto) 2 % (0-3) Basophils (%) (Auto) 1 % (0-3) Neutrophils # (Auto) 5.1 x10^3/uL (1.8-7.7) Lymphocytes # (Auto) 2.8 x10^3/uL (1.0-4.8) Monocytes # (Auto) 0.7 x10^3/uL (0.0-1.1) Eosinophils # (Auto) 0.2 x10^3/uL (0.0-0.7) Basophils # (Auto) 0.1 x10^3/uL (0.0-0.2) Glucose (Fingerstick) 239 mg/dL (70-99) Laboratory Tests Test 07/02/19 11:26 07/02/19 16:43 07/02/19 21:03 07/03/19 04:09 Glucose (Fingerstick) 163 mg/dL (70-99) 141 mg/dL (70-99) 254 mg/dL (70-99) White Blood Count 9.0 x10^3/uL (4.0-11.0) Red Blood Count 3.39 x10^6/uL (3.50-5.40) Hemoglobin 10.1 g/dL (12.0-15.5) Hematocrit 30.7 % (36.0-47.0) Mean Corpuscular Volume 91 fL (79-100) Mean Corpuscular Hemoglobin 30 pg (25-35) Mean Corpuscular Hemoglobin Concent 33 g/dL (31-37) Red Cell Distribution Width 14.7 % (11.5-14.5) Platelet Count 484 x10^3/uL (140-400) Neutrophils (%) (Auto) 57 % (31-73) Lymphocytes (%) (Auto) 32 % (24-48) Monocytes (%) (Auto) 8 % (0-9) Eosinophils (%) (Auto) 2 % (0-3) Basophils (%) (Auto) 1 % (0-3) Neutrophils # (Auto) 5.1 x10^3/uL (1.8-7.7) Lymphocytes # (Auto) 2.8 x10^3/uL (1.0-4.8) Monocytes # (Auto) 0.7 x10^3/uL (0.0-1.1) Eosinophils # (Auto) 0.2 x10^3/uL (0.0-0.7) Basophils # (Auto) 0.1 x10^3/uL (0.0-0.2) Test 07/03/19 08:00 Glucose (Fingerstick) 239 mg/dL (70-99) Microbiology 06/30/19 Anaerobic/Aerobic Culture, Resulted Pending 06/30/19 Anaerobic Culture Result 1 (ANDREY), Resulted Pending 06/30/19 Aerobic Culture - Preliminary, Resulted 06/30/19 Aerobic Culture Result 1 (ANDREY) - Preliminary, Resulted 06/30/19 Gram Stain - Final, Resulted 06/30/19 Gram Stain Result 1 (ANDREY) - Final, Resulted 06/30/19 Gram Stain Result 2 (ANDREY) - Final, Resulted 06/28/19 Blood Culture - Preliminary, Resulted NO GROWTH AFTER 4 DAYS 06/28/19 Urine Culture - Final, Complete 06/28/19 Urine Culture Result 1 (ANDREY) - Final, Complete Medications Current Medications Sodium Chloride 1,000 ml @ 1,000 mls/hr 1X ONCE IV Last administered on 06/28/19at 03:42; Start 06/28/19 at 02:30; Stop 06/28/19 at 03:29; Status DC Sodium Chloride 1,000 ml @ 1,000 mls/hr 1X ONCE IV Last administered on 06/28/19at 05:44; Start 06/28/19 at 02:30; Stop 06/28/19 at 03:29; Status DC Cefazolin Sodium/ Dextrose 50 ml @ 100 mls/hr 1X ONCE IV Last administered on 06/28/19at 02:53; Start 06/28/19 at 02:30; Stop 06/28/19 at 02:59; Status DC Vancomycin HCl 250 ml @ 250 mls/hr 1X ONCE IV Last administered on 06/28/19at 02:54; Start 06/28/19 at 02:30; Stop 06/28/19 at 03:29; Status DC Fentanyl Citrate (Fentanyl 2ml Vial) 50 mcg 1X ONCE IVP Last administered on 06/28/19at 02:39; Start 06/28/19 at 02:30; Stop 06/28/19 at 02:31; Status DC Ibuprofen (Motrin) 600 mg 1X ONCE PO Last administered on 06/28/19at 04:34; Start 06/28/19 at 04:15; Stop 06/28/19 at 04:18; Status DC Potassium Chloride (Klor-Con) 40 meq 1X ONCE PO Last administered on 06/28/19at 10:22; Start 06/28/19 at 06:30; Stop 06/28/19 at 06:33; Status DC Sodium Chloride 1,000 ml @ 150 mls/hr Q6H40M IV Last administered on 06/29/19at 01:30; Start 06/28/19 at 06:30; Stop 06/29/19 at 06:29; Status DC Dextrose (Dextrose 50%-Water Syringe) 12.5 gm PRN Q15MIN PRN IV SEE COMMENTS; Start 06/28/19 at 06:30; Stop 06/29/19 at 08:47; Status DC Insulin Glargine (Lantus Syringe) 8 unit QHS SQ Last administered on 06/30/19at 21:53; Start 06/28/19 at 21:00; Stop 07/01/19 at 07:37; Status DC Insulin Human Lispro (HumaLOG) 0-7 UNITS TIDACHC SQ Last administered on 06/28/19at 21:38; Start 06/28/19 at 11:30; Stop 06/29/19 at 08:42; Status DC Dextrose (Dextrose 50%-Water Syringe) 12.5 gm PRN Q15MIN PRN IV SEE COMMENTS; Start 06/28/19 at 10:30; Status UNV Acetaminophen/ Hydrocodone Bitart (Lortab 5/325) 1 tab PRN Q6HRS PRN PO PAIN Last administered on 07/03/19at 09:51; Start 06/28/19 at 10:30 Morphine Sulfate (Morphine Sulfate) 2 mg PRN Q4HRS PRN IV MODERATE-SEVERE PAIN Last administered on 06/29/19at 02:24; Start 06/28/19 at 10:30; Stop 06/29/19 at 11:51; Status DC Enoxaparin Sodium (Lovenox 40mg Syringe) 40 mg DAILY SQ Last administered on 07/01/19at 08:20; Start 06/28/19 at 12:00; Stop 07/02/19 at 07:30; Status DC Ketorolac Tromethamine (Toradol 30mg Vial) 30 mg PRN Q6HRS PRN IVP MILD PAIN 1- 3 Last administered on 07/03/19at 00:11; Start 06/28/19 at 10:30; Stop 07/03/19 at 10:29; Status DC Multivitamins 10 ml/Thiamine HCl 100 mg/Folic Acid 1 mg/Sodium Chloride 1,011.2 ml @ 100 mls/ hr DAILY IV Last administered on 07/01/19at 08:20; Start 06/28/19 at 12:00; Stop 07/02/19 at 01:00; Status DC Lorazepam (Ativan) 2 mg PRN Q1HR PRN PO For CIWA 8-14; Start 06/28/19 at 11:00; Stop 06/29/19 at 11:51; Status DC Lorazepam (Ativan Inj) 1 mg PRN Q1HR PRN IV For CIWA 8-14; Start 06/28/19 at 11:00; Stop 06/29/19 at 11:51; Status DC Haloperidol Lactate (Haldol Inj) 5 mg PRN Q4HRS PRN IVP Hallucinatns,Confusn,Delirium; Start 06/28/19 at 11:00; Stop 06/29/19 at 11:51; Status DC Diphenhydramine HCl (Benadryl) 25 mg PRN Q15MIN PRN IVP EPS symptoms 2'Haldol admin; Start 06/28/19 at 11:00 Clonidine HCl (Catapres) 0.1 mg PRN Q1HR PRN PO SBP > 180 or DBP > 100, MRX3; Start 06/28/19 at 11:00 Vancomycin HCl 1 gm/Sodium Chloride 250 ml @ 250 mls/hr Q12H IV Last administered on 06/29/19at 02:26; Start 06/28/19 at 15:00; Stop 06/29/19 at 14:49; Status DC Vancomycin HCl (Vanco Per Pharmacy) 1 each PRN DAILY PRN MC SEE COMMENTS Last administered on 07/02/19at 14:26; Start 06/28/19 at 11:00 Ceftriaxone Sodium (Rocephin) 1 gm Q24H IVP Last administered on 07/02/19at 12:24; Start 06/28/19 at 12:00 Influenza Virus Vaccine Quadrival (Afluria Quad 2019-20 (3yr Up) Syringe) 0.5 ml ONCE ONCE VAX IM Last administered on 06/28/19at 15:25; Start 06/28/19 at 15:00; Stop 06/28/19 at 15:01; Status DC Iohexol (Omnipaque 300 Mg/ml) 75 ml 1X ONCE IV ; Start 06/28/19 at 14:45; Stop 06/28/19 at 14:46; Status DC Info (CONTRAST GIVEN -- Rx MONITORING) 1 each PRN DAILY PRN MC SEE COMMENTS; Start 06/28/19 at 14:45; Stop 06/30/19 at 14:44; Status DC Lactobacillus Rhamnosus (Culturelle) 1 cap BID PO Last administered on 07/03/19at 08:35; Start 06/28/19 at 21:00 Vancomycin HCl (Vancomycin Trough Level) 1 each 1X ONCE MC ; Start 06/29/19 at 14:30; Stop 06/29/19 at 14:31; Status DC Multivitamins 10 ml/Thiamine HCl 100 mg/Folic Acid 1 mg/Sodium Chloride 1,011.2 ml @ 100 mls/ hr DAILY IV ; Start 06/29/19 at 09:00; Stop 07/03/19 at 19:07; Status UNV Multivitamins (Thera M Plus) 1 tab DAILY PO Last administered on 07/03/19at 08:35; Start 07/02/19 at 09:00 Folic Acid (Folic Acid) 1 mg DAILY PO Last administered on 07/03/19at 08:35; Start 07/02/19 at 09:00 Thiamine Mononitrate (Vitamin B-1) 100 mg DAILY PO Last administered on 07/03/19at 08:35; Start 07/02/19 at 09:00 Thiamine HCl 100 mg DAILY IM ; Start 07/03/19 at 09:00; Stop 07/08/19 at 08:59; Status UNV Thiamine HCl 100 mg/Dextrose 51 ml @ 100 mls/hr DAILY IV ; Start 07/03/19 at 09:00; Stop 07/07/19 at 09:31; Status UNV Lorazepam (Ativan) 2 mg Q6H PO Last administered on 06/29/19at 09:00; Start 06/28/19 at 20:00; Stop 06/29/19 at 11:51; Status DC Chlordiazepoxide (Librium) 25 mg Q6H PO ; Start 06/28/19 at 19:30; Stop 06/30/19 at 01:31; Status UNV Chlordiazepoxide (Librium) 25 mg PRN Q6HRS PRN PO ANXIETY / AGITATION; Start 06/29/19 at 08:45 Insulin Human Lispro (HumaLOG) 0-9 UNITS TIDWMEALS SQ Last administered on 07/03/19at 08:43; Start 06/29/19 at 12:00 Dextrose (Dextrose 50%-Water Syringe) 12.5 gm PRN Q15MIN PRN IV SEE COMMENTS; Start 06/29/19 at 08:45 Nicotine (Nicoderm Cq 21mg) 1 patch PRN DAILY PRN TD SMOKING CESSATION; Start 06/29/19 at 08:45 Haloperidol Lactate (Haldol Inj) 2.5 mg PRN Q4HRS PRN IVP Hallucinatns,Confusn,Delirium; Start 06/29/19 at 12:00; Stop 07/02/19 at 07:30; Status DC Morphine Sulfate (Morphine Sulfate) 1 mg PRN Q4HRS PRN IV MODERATE-SEVERE PAIN Last administered on 07/02/19at 05:11; Start 06/29/19 at 12:00 Vancomycin HCl 1 gm/Sodium Chloride 250 ml @ 250 mls/hr Q8H IV Last administered on 06/30/19at 06:41; Start 06/29/19 at 15:00; Stop 06/30/19 at 15:28; Status DC Vancomycin HCl (Vancomycin Trough Level) 1 each 1X ONCE MC Last administered on 06/30/19at 14:30; Start 06/30/19 at 14:30; Stop 06/30/19 at 14:31; Status DC Propofol 20 ml @ As Directed STK-MED ONCE IV ; Start 06/30/19 at 13:42; Stop 06/30/19 at 13:42; Status DC Dexamethasone Sodium Phosphate (Decadron) 4 mg STK-MED ONCE .ROUTE ; Start 06/30/19 at 13:42; Stop 06/30/19 at 13:42; Status DC Lidocaine HCl (Lidocaine Pf 2% Vial) 5 ml STK-MED ONCE .ROUTE ; Start 06/30/19 at 13:42; Stop 06/30/19 at 13:42; Status DC Ondansetron HCl (Zofran) 4 mg STK-MED ONCE .ROUTE ; Start 06/30/19 at 13:42; Stop 06/30/19 at 13:42; Status DC Midazolam HCl (Versed) 2 mg STK-MED ONCE .ROUTE ; Start 06/30/19 at 13:42; Stop 06/30/19 at 13:42; Status DC Fentanyl Citrate (Fentanyl 2ml Vial) 100 mcg STK-MED ONCE .ROUTE ; Start 06/30/19 at 14:00; Stop 06/30/19 at 14:00; Status DC Fentanyl Citrate (Fentanyl 2ml Vial) 25 mcg PRN Q5MIN PRN IV MILD PAIN 1-3; Start 06/30/19 at 14:15; Stop 06/30/19 at 20:37; Status DC Fentanyl Citrate (Fentanyl 2ml Vial) 50 mcg PRN Q5MIN PRN IV MODERATE TO SEVERE PAIN Last administered on 06/30/19at 16:26; Start 06/30/19 at 14:15; Stop 06/30/19 at 20:37; Status DC Morphine Sulfate (Morphine Sulfate) 1 mg PRN Q10MIN PRN IV SEVERE PAIN 7-10; Start 06/30/19 at 14:15; Stop 06/30/19 at 20:37; Status DC Ringer's Solution 1,000 ml @ 30 mls/hr Q24H IV Last administered on 06/30/19at 14:10; Start 06/30/19 at 14:10; Stop 06/30/19 at 20:37; Status DC Hydromorphone HCl (Dilaudid) 0.5 mg PRN Q10MIN PRN IV SEV PAIN, Second choice; Start 06/30/19 at 14:15; Stop 06/30/19 at 20:37; Status DC Prochlorperazine Edisylate (Compazine) 5 mg PACU PRN PRN IV NAUSEA, MRX1; Start 06/30/19 at 14:15; Stop 06/30/19 at 20:37; Status DC Vancomycin HCl 1.25 gm/Sodium Chloride 250 ml @ 167 mls/hr Q8H IV ; Start 06/30/19 at 15:00; Status Cancel Vancomycin HCl 1.25 gm/Sodium Chloride 250 ml @ 167 mls/hr Q8H IV Last administered on 07/03/19at 08:37; Start 06/30/19 at 23:00 Insulin Glargine (Lantus Syringe) 15 unit DAILY08 SQ Last administered on 07/01/19at 08:22; Start 07/01/19 at 08:00; Stop 07/01/19 at 13:06; Status DC Glyburide (Diabeta) 5 mg BIDWMEALS PO Last administered on 07/01/19at 08:19; Start 07/01/19 at 08:00; Stop 07/01/19 at 13:06; Status DC Insulin Glargine (Lantus Syringe) 20 unit DAILY08 SQ Last administered on 07/03/19at 08:42; Start 07/02/19 at 08:00; Stop 07/03/19 at 09:00; Status DC Insulin Human Lispro (HumaLOG) 15 units 1X ONCE SQ Last administered on 07/01/19at 13:19; Start 07/01/19 at 13:00; Stop 07/01/19 at 13:07; Status DC Insulin Human Lispro (HumaLOG) 10 units TIDAC SQ Last administered on 1 at 08:44; Start 07/01/19 at 16:30 Insulin Glargine (Lantus Syringe) 30 unit DAILY08 SQ Last administered on 07/03/19at 10:01; Start 07/03/19 at 09:30 Active Scripts Active Reported No Known Medications Prior To Admisstion (Info) Each 1 Each Vitals/I & O Vital Sign - Last 24 Hours 07/02/19 07/02/19 07/02/19 07/02/19 14:53 17:33 18:33 19:00 Temp 98.1 98.6 98.1 98.6 Pulse 89 91 Resp 16 0 16 18 B/P (MAP) 132/88 (103) 144/83 (103) Pulse Ox 96 96 96 O2 Delivery Room Air Room Air Room Air Room Air 07/02/19 07/02/19 07/03/19 07/03/19 20:26 23:00 00:11 01:11 Temp 98.1 98.1 Pulse 88 Resp 18 B/P (MAP) 158/86 (110) Pulse Ox 98 O2 Delivery Room Air Room Air Room Air Room Air 07/03/19 07/03/19 07/03/19 03:00 07:00 09:51 Temp 98.2 98.0 98.2 98.0 Pulse 89 87 Resp 18 20 18 B/P (MAP) 158/87 (110) 146/84 (104) Pulse Ox 98 92 92 O2 Delivery Room Air Room Air Room Air Intake and Output 07/02/19 07/02/19 07/03/19 15:00 23:00 07:00 Intake Total 350 ml 1100 ml 120 ml Balance 350 ml 1100 ml 120 ml JEANNIE RAJPUT MD Jul 03, 2019 11:21
[2019-07-03] MEDS ORDERED: INSU100V8 SQ (11:24)
[2019-07-03] MEDS ORDERED: MULT1TAB90 PO (11:24)
[2019-07-03] MEDS ORDERED: Folic Acid PO (11:24)
[2019-07-03] MEDS ORDERED: HYDR-2761 PO (11:24)
[2019-07-03] MEDS ORDERED: THIA100T22 PO (11:24)
[2019-07-03] MEDS ORDERED: CHLO25CA9 PO (11:24)
[2019-07-03] MEDS ORDERED: INSU100I11 SQ (11:24)
[2019-07-03] MEDS ORDERED: AMOX1TAB61 PO (11:24)
[2019-07-03] MEDS ORDERED: DOXY100C2 PO (11:24)
[2019-07-03] MEDS ORDERED: Nicotine 21MG TD (11:24)
--- NOTE | 2019-07-03 11:30 | NUR ---
SW following. Discussed with RN, pt has surgical consult (per RN). RN advised no SW needs at this time. SW will continue to follow.
[2019-07-03] MEDS: VANCOMYCIN PER PHARMACY MC PRN (11:31)
--- NOTE | 2019-07-03 11:31 | PDOC3 ---
Discharge Summary Visit Information Date of Admission: Jun 28, 2019 Date of Discharge: Jul 03, 2019 Admitting Diagnosis Comment: septic Left shoulder with cellulitis - s/p I and D 06/30/19 (hazy fluid) Sepsis - with no organ damage Lactic acidosis - Alcoholism - Hypokalemia - K 3.1, replaced Diabetes - UNCONTROLLED hgba1c 12 Hypertension - Hepatitis - alcoholic by history Neuropathy - 2/2 ETOH and DM Smoker - nicotine patch Amphetamine use - Final Diagnosis Problems Medical Problems: (1) Alcohol abuse Status: Acute (2) Anemia Status: Acute (3) Cellulitis of left shoulder Status: Acute (4) Hypokalemia Status: Acute (5) Methamphetamine abuse Status: Acute (6) Sepsis Status: Acute (7) Uncontrolled diabetes mellitus Status: Acute Brief Hospital Course Allergies Allergies Coded Allergies Type Severity Reaction Last Updated Verified No Known Drug Allergies 10/09/13 No Vital Signs Vital Signs Date Time Temp Pulse Resp B/P (MAP) Pulse Ox O2 Delivery O2 Flow Rate FiO2 07/03/19 09:51 18 92 Room Air 07/03/19 07:00 98.0 87 146/84 (104) 98.0 Lab Results Laboratory Tests Test 07/01/19 11:44 07/01/19 16:37 07/01/19 20:25 07/02/19 04:25 Glucose (Fingerstick) 380 mg/dL (70-99) 243 mg/dL (70-99) 163 mg/dL (70-99) Creatinine 0.6 mg/dL (0.6-1.0) Estimated GFR (Cockcroft-Gault) 106.7 Test 07/02/19 07:45 07/02/19 11:26 07/02/19 16:43 07/02/19 21:03 Glucose (Fingerstick) 186 mg/dL (70-99) 163 mg/dL (70-99) 141 mg/dL (70-99) 254 mg/dL (70-99) Test 07/03/19 04:09 07/03/19 08:00 White Blood Count 9.0 x10^3/uL (4.0-11.0) Red Blood Count 3.39 x10^6/uL (3.50-5.40) Hemoglobin 10.1 g/dL (12.0-15.5) Hematocrit 30.7 % (36.0-47.0) Mean Corpuscular Volume 91 fL (79-100) Mean Corpuscular Hemoglobin 30 pg (25-35) Mean Corpuscular Hemoglobin Concent 33 g/dL (31-37) Red Cell Distribution Width 14.7 % (11.5-14.5) Platelet Count 484 x10^3/uL (140-400) Neutrophils (%) (Auto) 57 % (31-73) Lymphocytes (%) (Auto) 32 % (24-48) Monocytes (%) (Auto) 8 % (0-9) Eosinophils (%) (Auto) 2 % (0-3) Basophils (%) (Auto) 1 % (0-3) Neutrophils # (Auto) 5.1 x10^3/uL (1.8-7.7) Lymphocytes # (Auto) 2.8 x10^3/uL (1.0-4.8) Monocytes # (Auto) 0.7 x10^3/uL (0.0-1.1) Eosinophils # (Auto) 0.2 x10^3/uL (0.0-0.7) Basophils # (Auto) 0.1 x10^3/uL (0.0-0.2) Glucose (Fingerstick) 239 mg/dL (70-99) Laboratory Tests Test 07/02/19 16:43 07/02/19 21:03 07/03/19 04:09 07/03/19 08:00 Glucose (Fingerstick) 141 mg/dL (70-99) 254 mg/dL (70-99) 239 mg/dL (70-99) White Blood Count 9.0 x10^3/uL (4.0-11.0) Red Blood Count 3.39 x10^6/uL (3.50-5.40) Hemoglobin 10.1 g/dL (12.0-15.5) Hematocrit 30.7 % (36.0-47.0) Mean Corpuscular Volume 91 fL (79-100) Mean Corpuscular Hemoglobin 30 pg (25-35) Mean Corpuscular Hemoglobin Concent 33 g/dL (31-37) Red Cell Distribution Width 14.7 % (11.5-14.5) Platelet Count 484 x10^3/uL (140-400) Neutrophils (%) (Auto) 57 % (31-73) Lymphocytes (%) (Auto) 32 % (24-48) Monocytes (%) (Auto) 8 % (0-9) Eosinophils (%) (Auto) 2 % (0-3) Basophils (%) (Auto) 1 % (0-3) Neutrophils # (Auto) 5.1 x10^3/uL (1.8-7.7) Lymphocytes # (Auto) 2.8 x10^3/uL (1.0-4.8) Monocytes # (Auto) 0.7 x10^3/uL (0.0-1.1) Eosinophils # (Auto) 0.2 x10^3/uL (0.0-0.7) Basophils # (Auto) 0.1 x10^3/uL (0.0-0.2) Brief Hospital Course Ms. Reynoso is a 48 old [white female who is a smoker and drinker, had some high etoh levels on admit on [facility] but she had a left shoulder arthritis that turned out to be septic, needed wash out by ortho, INtra op cxs pending, but blood cx, neg and non toxic appearing, Co managed with ID, She wants to go home and intra op cxs still pending- FLuid was hazy, BUt since she is stable and wants to go home, okayed for doxy and augmentin x 10 days and INSTRUCTED TO COME BACK IF GETS WORSE (since cultures was still pending when she dcs).ALSO I had to take care of dm, hba1c 12, cant do metformin in alcoholic, OHA wont do anything for BS 400s- so now lantus 30 qhs plus novolog 10 TID and with good sugar control in house with that regimen HOme today COmsults; ID, Ortho Proc; Left shoulder wash out dc 40 mins, 2 notes today [place] meza Discharge Information Condition at Discharge: Improved, Stable Follow Up: Weeks (sutuires can come out in 7-10 days) Disposition/Orders: D/C to Home Scheduled Amoxicillin/Potassium Clav (Augmentin 875-125 Tablet) 1 Each Tablet, 1 TAB PO BID for septic left shoulder for 10 Days, #20 Ref 0 Prescribed by: JEANNIE RAJPUT on 07/03/19 1124 Doxycycline Hyclate (Doxycycline Hyclate) 100 Mg Capsule, 1 CAP PO BID for septic left shoulder, #20 Prescribed by: JEANNIE RAJPUT on 07/03/191123 Insulin Glargine,Hum.rec.anlog (Lantus) 100 Unit/1 Ml Vial, 30 UNIT SQ DAILY08 for dm 2 hgba1c 12 for 30 Days Prescribed by: JEANNIE RAJPUT on 07/03/191123 Insulin Lispro (Humalog) 100 Unit/1 Ml Insuln.pen, 10 UNITS SQ TIDAC for dm 2 uncontrolled for 30 Days Prescribed by: JEANNIE RAJPUT on 07/03/191123 Multivits,Ca,Minerals/Iron/Fa (Thera-M Tablet) 1 Each Tablet, 1 TAB PO DAILY for mvi, #30 Prescribed by: JEANNIE RAJPUT on 07/03/191123 Thiamine Mononitrate (Vitamin B-1) 100 Mg Tablet, 100 MG PO DAILY for mvi, #30 Prescribed by: JEANNIE RAJPUT on 07/03/191123 [Folic Acid] 1 MG TABLET, 1 MG PO DAILY for mvi, #30 Prescribed by: JEANNIE RAJPUT on 07/03/191123 Scheduled PRN Chlordiazepoxide Hcl (Chlordiazepoxide Hcl) 25 Mg Capsule, 25 MG PO PRN Q6HRS PRN for ANXIETY / AGITATION, #20 Prescribed by: JEANNIE RAJPUT on 07/03/191123 Hydrocodone Bit/Acetaminophen (Hydrocodone-Apap 5-325 ) 1 Tab Tablet, 1 TAB PO PRN Q6HRS PRN for PAIN, #20 Prescribed by: JEANNIE RAJPUT on 07/03/191123 [Nicotine 21MG] 1 PATCH PATCH, 1 PATCH TD PRN DAILY PRN for SMOKING CESSATION, #10 Prescribed by: JEANNIE RAJPUT on 07/03/191123 Discontinued Medications Info (No Known Medications Prior To Admisstion) Each, 1 EACH , (Reported) Entered as Reported by: ASHISH EDUARDO on 10/09/130 JEANNIE RAJPUT MD Jul 03, 2019 11:31
[2019-07-03] MEDS: cefTRIAXone IV Push 1 GM VIAL. IVP SCH (12:26)
[2019-07-03] MEDS: MORPHINE SULFATE 2 MG/ML VIAL. IV PRN (12:53)
--- NOTE | 2019-07-03 15:37 | NUR ---
Discharge Note: [facility] Discharge instructions and discharge home medications reviewed with Patient and a copy given. All questions have been answered and understanding verbalized. The following instructions and handouts were given: Discharge Instructions, Wound/ Incision Care, Follow Up Instructions, Prescriptions Discontinued lines and drains: PIV removed, Catheter intact. Patient discharged to Home with Self-Care via [employer] Vehicle
== END 2019-07-03 15:05 | disposition home or self-care (01) | DRG 854 ==
LOC: ER 23:55 → ED HOLD 06-28 03:54 → UNDODEPER 06-28 05:08 → 5 SOUTH 06-28 08:15
PROVIDERS: ADMIT Family Medicine; ATTEND Family Medicine
PROC: 0R9K0ZZ Drainage of Left Shoulder Joint, Open Approach (ICD-10-PCS; principal; 2019-06-28)
PROC: 0MD Bursae and Ligaments, Extraction (ICD-10-PCS; 2019-06-28)
DX: A41.9 Sepsis, unspecified organism (principal); L03.114 Cellulitis of left upper limb; D64.9 Anemia, unspecified; E04.2 Nontoxic multinodular goiter; E10.40 Type 1 diabetes mellitus with diabetic neuropathy, unspecified; E10.65 Type 1 diabetes mellitus with hyperglycemia; E87.6 Hypokalemia; F10.229 Alcohol dependence with intoxication, unspecified; F15.10 Other stimulant abuse, uncomplicated; F17.210 Nicotine dependence, cigarettes, uncomplicated; I10 Essential (primary) hypertension; Z79.4 Long term (current) use of insulin; Z82.49 Family history of ischemic heart disease and other diseases of the circulatory system; Z83.3 Family history of diabetes mellitus
CPT/HCPCS: 36415; 73030; 73201; 80048; 80053; 80076; 80202; 80307; 81001; 82565; 82962; 83036; 83605; 85025; 85651; 86703; 86705; 86709; 86803; 87040; 87071; 87075; 87086; 87340; 89050; 90471; 90686; 96361; 96365; 96368; A7015; G0480; J0696; J1100; J1650; J1815; J1885; J2001; J2250; J2270; J2405; J2704; J3010; J3370; J7030; J7050; J7120; 99285-25; G0378